=== PATIENT | male | born 1965 | race Caucasian/White ===

== ENCOUNTER 2016-04-29 15:56 | Inpatient (IN) | payer OTHER ==
[~2016-04-29] VITALS: Ht 152.4 cm; Wt 76.0 kg
[~2016-04-29 15:56] MED LIST: IBUP-232 PO
[2016-04-30] MEDS ORDERED: INSULIN HUMAN REGULAR 1,000 UNITS/10 ML VIAL SQ PRN (06:30)
[2016-04-30] MEDS ORDERED: METOPROLOL TARTRATE 25 MG TAB PO PRN (06:30)
[2016-04-30 07:07] VITALS: BP 123/72; PULSE 60; RESP 16; TEMP 97.6; O2SAT 99
[2016-04-30] MEDS ORDERED: GENTAMICIN SULFATE 80 MG/2 ML VIAL ONE (07:15)
[2016-04-30 07:24] LABS: AUTOMATED NEUTROPHIL # 1.9 TH/MM3 (1.8-7.7); BASOPHIL % 0.8 % (0.0-2.0); EOSINOPHIL # 0.1 TH/MM3 (0-0.4); EOSINOPHIL % 3.2 % (0.0-4.0); HEMATOCRIT 39.5 % (39.0-51.0); HEMO FLAGS DIFF FINAL; LYMPH % 31.3 % (9.0-44.0); LYMPHOCYTE # 1.1 TH/MM3 (1.0-4.8); MEAN CELL VOLUME 87.3 FL (80.0-100.0); MEAN CORPUSCULAR HEMOGLOBIN 29.8 PG (27.0-34.0); MEAN CORPUSCULAR HGB CONC 34.2 % (32.0-36.0); MONO % 9.8 % (0.0-8.0); NEUT % 54.9 % (16.0-70.0); PLATELET COUNT 160 TH/MM3 (150-450); RED BLOOD COUNT 4.52 MIL/MM3 (4.50-5.90); RED CELL DISTRIBUTION WIDTH 14.5 % (11.6-17.2); WHITE BLOOD COUNT 3.4 TH/MM3 (4.0-11.0)
[2016-04-30] MEDS ORDERED: VANCOMYCIN 1000 MG/NS 250 ML (for <70 kg) IV SCH ×2 (07:30)
[2016-04-30] MEDS ORDERED: ceFAZolin 2 GM PREMIX 50 ML IV SCH (07:30)
[2016-04-30] MEDS ORDERED: HYDROmorphone HCL PF 2 MG/ML VIAL ONE (07:42)
[2016-04-30] MEDS ORDERED: SUGAMMADEX SODIUM 200 MG/2 ML VIAL IV PUSH ONE ×2 (07:42)
[2016-04-30] MEDS ORDERED: DEXAMETHASONE SOD PHOS 4 MG/ML VIAL ONE (07:44)
[2016-04-30] MEDS ORDERED: FAMOTIDINE 20 MG/2 ML VIAL ONE (07:44)
[2016-04-30] MEDS ORDERED: MIDAZOLAM HCL 2 MG/2 ML VIAL ONE (07:44)
[2016-04-30] MEDS ORDERED: BUPIVACAINE/EPINEPHRINE 0.25% PF 30 ML VIAL ONE (07:45)
[2016-04-30] MEDS ORDERED: SODIUM CHLORID 0.9% 500 ML IV SCH (08:30)
[2016-04-30] MEDS ORDERED: LACTATED RINGER'S 1000 ML IV SCH (08:30)
[2016-04-30] MEDS ORDERED: NALOXONE HCL 0.4 MG/ML AMP IV PRN (10:15)
[2016-04-30] MEDS ORDERED: MORPHINE SULFATE 4 MG/ML INJ IV PUSH PRN (10:15)
[2016-04-30] MEDS ORDERED: diphenhydrAMINE HCL 25 MG CAP PO PRN (10:15)
[2016-04-30] MEDS ORDERED: SODIUM CHLORIDE 0.9% FLUSH 5 ML FLUSH IVF PRN (10:15)
[2016-04-30] MEDS ORDERED: ONDANSETRON HCL 4 MG/2 ML VIAL IVP PRN (10:15)
[2016-04-30] MEDS ORDERED: ACETAMINOPHEN/HYDROcodone 325 MG/10 MG TAB PO PRN (10:15)
--- NOTE | 2016-04-30 10:24 | PD.OP ---
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 My P.A. presence was necessary throughout this case for the manipulation and positioning of the surgical extremity. My P.A. was assisting me throughout the duration of this procedure. The skill set of a physician life enrichment assistant was medically necessary to complete this procedure. During the surgical case the senior manufacturing technician was working at the back table and the physician life enrichment assistant was directly assisting me. Operation and Findings: PLAN OF ACTIVITY Strict non-weightbearing. DETAILS OF PROCEDURE This patient is well-known to me from previous treatment of right distal tibia and fibula fractures. The patient subsequently presented to the office with failure hardware and nonunion. Informed consent was obtained. The operative site was marked. Patient was brought to the OR, placed on the OR table, and given IV sedation and GETA. The operative leg was prepped with alcohol, followed by Hibiclens and draped in the usual sterile fashion. Time-out procedure was performed. Antibiotics were held until after cultures were obtained. The procedure began with attention turned towards the fibula. A 8-inch incision was made over the distal tibia. The subcutaneous tissue was dissected with Bovie. The hardware was now visualized. At this point attention was turned to hardware removal. The plate had broken. The intact screws were now loosened with a screwdriver and then removed with a drill. The plate was now removed. Next attention was turned to the distal tibia using the same anterolateral incision. Subcutaneous tissue was dissected with Bovie and our attention was now turned towards hardware removal. The screws were now loosened using a screwdriver. The screws were now removed using a drill. The plate was also removed. Attention was turned to the open treatment of the distal tibia nonunion. A TPS bur was used to debride the nonunion. Curettes and rongeurs were used to debride fibrous tissue. All fibrous tissue was removed. Cortical bone was debrided back to healthy bleeding bone. There was a large defect in the metaphyseal region. At this point, attention was turned towards the distal fibula. The distal fibula was also debrided of fibrous tissue. There was a large amount fibrous tissue present. TPS bur and rongeurs were used to debride bone back to healthy bleeding bone. The wounds were now thoroughly irrigated. Next, attention was turned to iliac crest bone grafting. A 3-inch incision was made over the iliac crest. The subcutaneous tissue was dissected with Bovie. The fascia was elevated sharply. The soft tissue was protected. An osteotome was used to create a window in the cortex. Curettes were used to obtain cancellous bone graft from the iliac crest. 3 cc of bone marrow aspirate was also obtained to mixed with a medium stem cell graft. Attention was turned the distal fibula. A fibula plate was selected. The plate was provisionally held to bone with K-wires. A 3.5 LCP plate was utilized. The fractures were held in a reduced position. Ultimately 3.5 cortical screws were placed on each side of the fracture. Compression was applied across the fracture site. Multiple screws were placed in each side of fracture. Fluoroscopy confirmed appropriate fracture alignment with appropriate plate placement. At this point, attention was turned to open reduction, internal fixation of the tibial nonunion. The tibia was distracted open. A Synthes distal tibial plate was selected. The plate was placed along the anterior lateral aspect of the tibia. The plate was provisionally held to bone with K-wires. 3.5 cortical screws were used to compress plate to bone. Fluoroscopy confirmed appropriate plate placement. Multiple 2.7 locking screws were placed distally. Multiple 3.5 cortical screws were placed in the tibia shaft. All screws were predrilled and measured for appropriate length. Next, attention was turned to stem cell grafting. The remainder of the cancellous bone graft from the iliac crest was mixed with a medium stem cell graft. This was also mixed with bone marrow aspirate from the pelvis. Once this was ready, the remainder of the defects along the tibia and fibula were filled with bone graft. The tourniquet was released. Hemostasis was confirmed. At this point incisions were closed. The pelvic incision was closed with #1 Vicryl, 3-0 Vicryl and petros. The ankle incisions were closed with 3-0 Vicryl and 3-0 nylon. Sterile dressings were applied. The patient was placed into a well-molded, well-padded splint and she was transferred to Recovery in stable condition. Romel May MD Apr 30, 2016 10:24
[2016-04-30] MEDS ORDERED: MISCELLANEOUS NURSING INFORMATION XX PRN (11:00)
[2016-04-30] MEDS ORDERED: DO NOT ADM ANY ANTICOAGULANT DRUGS XX PRN (11:00)
[2016-04-30] MEDS ORDERED: Post-op Orders (for Pharmacy) MISC XX ONE (11:00)
[2016-04-30] MEDS: LACTATED RINGER'S 1000 ML INJ 1,000 ML IV SCH ×2 (11:30→21:00)
[2016-04-30] MEDS: MORPHINE SULFATE 30 MG/30 ML PCA IV SCH ×2 (11:49→23:12)
[2016-04-30] MEDS: ERGOCALCIFEROL (VIT D2) 50,000 UNIT CAP PO SCH (12:00)
--- NOTE | 2016-04-30 12:41 | RADRPT ---
EXAM DATE/TIME: 04/30/2016 09:54 [place] COMPARISON: ANKLE RIGHT LIMITED (AP&LAT), December 05, 2015, 11:06. INDICATIONS : ORIF right ankle hardware removal and revision. MEDICAL HISTORY : None. SURGICAL HISTORY : ORIF right ankle. ENCOUNTER: Subsequent ACUITY: 4 - 6 months PAIN SCORE: Non-responsive. LOCATION: Right ankle. FINDINGS: Extensive hardware is noted within the distal fibula and tibia status post revision. Hardware appears be in good position and the bones are adequately aligned. CONCLUSION: Distal fibular and tibial hardware appears to be in good position status post revision. Chente Spain MD on April 30, 2016 at 12:38 Board Certified Radiologist. This report was verified electronically.
[2016-04-30] MEDS: CALCIUM/VITAMIN D 250 MG/125 U TAB PO SCH ×2 (13:00→18:57)
[2016-04-30] MEDS ORDERED: LACTATED RINGER'S 1000 ML INJ 1,000 ML IV ONE (14:07)
[2016-04-30] MEDS ORDERED: KETOROLAC TROMETHAMINE 60 MG/2 ML (IM) VIAL IM ONE (14:07)
[2016-04-30] MEDS ORDERED: ONDANSETRON HCL 4 MG/2 ML VIAL IV PUSH ONE (14:07)
[2016-04-30] MEDS ORDERED: PROPOFOL 200 MG/20 ML AMP IV ONE (14:07)
[2016-04-30] MEDS ORDERED: ePHEDrine/NS 50 MG/5 ML SYR IV ONE (14:07)
[2016-04-30 16:22] VITALS: O2SAT 97
[2016-04-30 17:00] VITALS: BP 118/71; PULSE 58; RESP 16; TEMP 95.8; O2SAT 99
[2016-04-30] MEDS: VANCOMYCIN INJ 1,000 MG in SODIUM CHLOR 0.9% 250 ML INJ 250 ML IV SCH (18:56)
[2016-04-30 20:00] VITALS: BP 113/67; PULSE 54; RESP 16; TEMP 97.2; O2SAT 99
[2016-04-30] MEDS: SODIUM CHLORIDE 0.9% FLUSH 5 ML FLUSH IVF SCH (21:00)
[2016-04-30] MEDS: PCA - TOTAL MG MORPHINE DELIVERED PER SHIFT SCH (21:17)
[2016-04-30] MEDS: KETOROLAC TROMETHAMINE 30 MG/ML (IVP) VIAL IVP SCH (21:21)
[2016-04-30] MEDS: ceFAZolin 2 GM PREMIX 50 ML IV SCH (23:11)
[2016-05-01] VITALS (8 sets, daily range): BP systolic 101–124; BP diastolic 61–76; PULSE 56–69; RESP 16–18; TEMP 96.1–98.9; O2SAT 95–100
[2016-05-01 05:44] LABS: HEMATOCRIT 30.8 % (39.0-51.0); REVIEW FLAG FINAL
[2016-05-01] MEDS: PCA - TOTAL MG MORPHINE DELIVERED PER SHIFT SCH ×4 (05:54→23:55)
[2016-05-01] MEDS: LACTATED RINGER'S 1000 ML INJ 1,000 ML IV SCH ×2 (05:55→17:00)
[2016-05-01] MEDS ORDERED: HYDR-3366 PO (06:23)
[2016-05-01] MEDS ORDERED: XARE10TA PO (06:23)
[2016-05-01] MEDS: CHLORHEXIDINE GLUCONATE 4% SOLN 120 ML BTL TOP SCH ×2 (06:30→23:55)
--- NOTE | 2016-05-01 07:05 | PD.ORT.PN ---
Subjective Subjective Remarks Pain controlled. Mild drainage through splint Objective Vitals Vital Signs Date Time Temp Pulse Resp B/P Pulse Ox O2 Delivery O2 Flow Rate FiO2 05/01/16 05:54 28 05/01/16 00:00 97.1 56 16 101/61 96 04/30/16 23:12 20 04/30/16 21:17 18 04/30/16 20:00 97.2 54 16 113/67 99 04/30/16 17:00 95.8 58 16 118/71 99 04/30/16 16:22 97 21 04/30/16 12:30 98.0 62 17 129/79 97 Room Air 04/30/16 12:00 58 17 124/82 97 Room Air 04/30/16 11:49 15 04/30/16 11:45 78 17 132/87 97 Room Air 04/30/16 11:30 67 15 145/90 97 Room Air 04/30/16 11:15 73 15 153/87 97 Nasal Cannula 2 04/30/16 11:00 85 15 153/90 97 Nasal Cannula 4 04/30/16 10:47 97.8 99 14 150/51 100 Nasal Cannula 4 04/30/16 07:07 97.6 60 16 123/72 99 I/O 04/30/16 04/30/16 04/30/16 05/01/16 05/01/16 05/01/16 07:00 15:00 23:00 07:00 15:00 23:00 Intake Total 1340 ml 800 ml Output Total 700 ml 1000 ml Balance 640 ml -200 ml Intake Oral 240 ml 480 ml IV Total 100 ml 320 ml Other 1000 ml Output Urine Total 500 ml 1000 ml Estimated Blood Loss 200 ml # Bowel Movements 0 0 Result Diagram: 05/01/16 0455 Imaging Last 72 hours Impressions Ankle X-Ray 04/30/16 0000 Signed Impressions: Service Date/Time: April 09:54 - CONCLUSION: Distal fibular and tibial hardware appears to be in good position status post revision. Chente Spain MD Objective Remarks Right lower extremity: Splint intact with mild drainage. Intact sensation distally. Iliac crest bone graft site dressing reinforced mild drainage. Is able to move all toes. No pain with motion of hip or knee Assessment & Plan Assessment and Plan Revision right tibial pilon fracture with removal of hardware and iliac crest bone graft and open reduction internal fixation POD 1 Strict nonweightbearing right lower extremity Elevation Maintain splint may reinforce due to drainage Daily dressing changes right iliac crest bone graft site Case management for possible discharge planning- homeless [facility] MAXIMO SOTELO PA-C May 01, 2016 07:05
[2016-05-01] MEDS: CALCIUM/VITAMIN D 250 MG/125 U TAB PO SCH ×3 (07:48→16:28)
[2016-05-01] MEDS: CHOLECALCIFEROL (VIT D3) 1000 UNIT TAB PO SCH (07:48)
[2016-05-01] MEDS: ACETAMINOPHEN/HYDROcodone 325 MG/10 MG TAB PO PRN ×3 (07:49→16:36)
[2016-05-01] MEDS: VANCOMYCIN INJ 1,000 MG in SODIUM CHLOR 0.9% 250 ML INJ 250 ML IV SCH ×2 (07:50→21:57)
[2016-05-01] MEDS: ceFAZolin 2 GM PREMIX 50 ML IV SCH ×3 (07:51→23:54)
[2016-05-01] MEDS: KETOROLAC TROMETHAMINE 30 MG/ML (IVP) VIAL IVP SCH (11:39)
[2016-05-01] MEDS: ENOXAPARIN SODIUM 30 MG/0.3 ML SYRINGE SQ SCH (11:39)
[2016-05-01] MEDS: SODIUM CHLORIDE 0.9% FLUSH 5 ML FLUSH IVF SCH ×2 (16:28→21:57)
[2016-05-02] VITALS: BP 110/56; PULSE 74; RESP 16; TEMP 98.7; O2SAT 97
[2016-05-02 08:04] VITALS: BP 124/75; PULSE 67; RESP 16; TEMP 98.3; O2SAT 99
--- NOTE | 2016-05-02 08:57 | PD.ORT.PN ---
Subjective Post Op Day #: 2 Subjective Remarks pain tolerable Objective Vitals Vital Signs Date Time Temp Pulse Resp B/P Pulse Ox O2 Delivery O2 Flow Rate FiO2 05/02/16 08:04 98.3 67 16 124/75 99 05/02/16 00:00 98.7 74 16 110/56 97 05/01/16 20:00 98.4 68 16 117/71 97 05/01/16 18:46 Room Air 05/01/16 18:23 98 21 05/01/16 16:06 97.7 69 18 121/70 98 05/01/16 12:20 95 21 05/01/16 12:06 97.1 66 18 124/76 99 I/O 05/01/16 05/01/16 05/01/16 05/02/16 05/02/16 05/02/16 07:00 15:00 23:00 07:00 15:00 23:00 Intake Total 480 ml 1080 ml 480 ml 480 ml Output Total 400 ml Balance 80 ml 1080 ml 480 ml 480 ml Intake Oral 240 ml 1080 ml 480 ml 480 ml IV Total 240 ml Output Urine Total 400 ml # Voids 4 2 2 # Bowel Movements 0 0 0 Result Diagram: 05/01/16 0455 Imaging Last 72 hours Impressions Ankle X-Ray 04/30/16 0000 Signed Impressions: Service Date/Time: April 09:54 - CONCLUSION: Distal fibular and tibial hardware appears to be in good position status post revision. Chente Spain MD Objective Remarks Right lower extremity: Splint intact with mild drainage. Intact sensation distally. Iliac crest bone graft site dressing c/d/i. Is able to move all toes. No pain with motion of hip or knee Assessment & Plan Ortho Post Op Day #: 2 Problem List: Assessment and Plan Revision right tibial pilon fracture with removal of hardware and iliac crest bone graft and open reduction internal fixation POD 2 Strict nonweightbearing right lower extremity Elevation Maintain splint may reinforce due to drainage Daily dressing changes right iliac crest bone graft site Case management for possible discharge planning- homeless МаринаEverton Sanchez May 02, 2016 08:57
[2016-05-02] MEDS: ceFAZolin 2 GM PREMIX 50 ML IV SCH (09:52)
[2016-05-02] MEDS: CHOLECALCIFEROL (VIT D3) 1000 UNIT TAB PO SCH (09:52)
[2016-05-02] MEDS: CALCIUM/VITAMIN D 250 MG/125 U TAB PO SCH ×2 (09:52→17:13)
[2016-05-02] MEDS: ENOXAPARIN SODIUM 30 MG/0.3 ML SYRINGE SQ SCH (09:53)
[2016-05-02] MEDS: VANCOMYCIN INJ 1,000 MG in SODIUM CHLOR 0.9% 250 ML INJ 250 ML IV SCH (09:53)
[2016-05-02] MEDS: SODIUM CHLORIDE 0.9% FLUSH 5 ML FLUSH IVF SCH ×2 (09:53→20:46)
[2016-05-02] MEDS: ACETAMINOPHEN/HYDROcodone 325 MG/10 MG TAB PO PRN ×2 (09:55→17:14)
[2016-05-02] MEDS ORDERED: MISCELLANEOUS PHARMACY INFORMATION XX ONE (11:00)
[2016-05-02 12:06] VITALS: BP 121/69; PULSE 77; RESP 16; TEMP 97.4; O2SAT 98
[2016-05-02] MEDS: PCA - TOTAL MG MORPHINE DELIVERED PER SHIFT SCH (14:00)
[2016-05-02 16:10] VITALS: BP 131/68; PULSE 60; RESP 18; TEMP 98.4; O2SAT 98
[2016-05-02 20:00] VITALS: BP 121/73; PULSE 74; RESP 18; TEMP 98.2; O2SAT 98
[2016-05-02] MEDS: LACTATED RINGER'S 1000 ML INJ 1,000 ML IV SCH (20:43)
[2016-05-03] VITALS: BP 128/73; PULSE 89; RESP 18; TEMP 97.2; O2SAT 97
[2016-05-03] MEDS: ACETAMINOPHEN/HYDROcodone 325 MG/10 MG TAB PO PRN ×3 (01:03→17:53)
[2016-05-03 08:55] VITALS: BP 130/80; PULSE 64; RESP 18; TEMP 96.6; O2SAT 99
[2016-05-03] MEDS: LACTATED RINGER'S 1000 ML INJ 1,000 ML IV SCH ×3 (09:00→19:57)
[2016-05-03] MEDS: CHOLECALCIFEROL (VIT D3) 1000 UNIT TAB PO SCH (09:00)
[2016-05-03] MEDS: CALCIUM/VITAMIN D 250 MG/125 U TAB PO SCH ×3 (09:00→17:52)
[2016-05-03] MEDS: ENOXAPARIN SODIUM 30 MG/0.3 ML SYRINGE SQ SCH (09:00)
[2016-05-03] MEDS: SODIUM CHLORIDE 0.9% FLUSH 5 ML FLUSH IVF SCH ×2 (09:02→20:22)
--- NOTE | 2016-05-03 11:54 | PD.ORT.PN ---
Subjective Post Op Day #: 3 Subjective Remarks pain tolerable Objective Vitals Vital Signs Date Time Temp Pulse Resp B/P Pulse Ox O2 Delivery O2 Flow Rate FiO2 05/03/16 08:55 Room Air 05/03/16 08:55 96.6 64 18 130/80 99 05/03/16 00:00 97.2 89 18 128/73 97 05/02/16 20:00 98.2 74 18 121/73 98 05/02/16 16:10 98.4 60 18 131/68 98 05/02/16 12:06 97.4 77 16 121/69 98 I/O 05/02/16 05/02/16 05/02/16 05/03/16 05/03/16 05/03/16 07:00 15:00 23:00 07:00 15:00 23:00 Intake Total 480 ml 1080 ml 480 ml 480 ml Output Total 350 ml 650 ml Balance 480 ml 1080 ml 130 ml -170 ml Intake Oral 480 ml 1080 ml 480 ml 480 ml Output Urine Total 350 ml 650 ml # Voids 2 6 1 # Bowel Movements 0 1 Result Diagram: 05/01/16 0455 Imaging Last 72 hours Impressions Ankle X-Ray 04/30/16 0000 Signed Impressions: Service Date/Time: April 09:54 - CONCLUSION: Distal fibular and tibial hardware appears to be in good position status post revision. Chente Spain MD Objective Remarks Right lower extremity: Splint intact with mild drainage. Intact sensation distally. Iliac crest bone graft site dressing c/d/i. Is able to move all toes. No pain with motion of hip or knee Assessment & Plan Ortho Post Op Day #: 3 Problem List: Assessment and Plan Revision right tibial pilon fracture with removal of hardware and iliac crest bone graft and open reduction internal fixation POD 2 Strict nonweightbearing right lower extremity Elevation Maintain splint may reinforce due to drainage Daily dressing changes right iliac crest bone graft site Case management for possible discharge planning - homeless МарианEverton Sanchez May 03, 2016 11:54
[2016-05-03 12:00] VITALS: BP 101/60; PULSE 69; RESP 18; TEMP 97.8; O2SAT 98
[2016-05-03 16:00] VITALS: BP 102/65; PULSE 67; RESP 18; TEMP 98.9; O2SAT 97
[2016-05-03 20:00] VITALS: BP 118/76; PULSE 83; RESP 17; TEMP 98; O2SAT 96
[2016-05-04] VITALS: BP 100/65; PULSE 67; RESP 16; TEMP 97; O2SAT 96
--- NOTE | 2016-05-04 07:04 | PD.ORT.PN ---
Subjective Subjective Remarks POD 4 s/p ORIF right distaly tibfib doign well. pain controlled. no complaints. awaiting case mgmt for placement Objective Vitals Vital Signs Date Time Temp Pulse Resp B/P Pulse Ox O2 Delivery O2 Flow Rate FiO2 05/04/16 00:00 97.0 67 16 100/65 96 05/03/16 20:00 98.0 83 17 118/76 96 05/03/16 16:00 98.9 67 18 102/65 97 05/03/16 12:00 97.8 69 18 101/60 98 05/03/16 08:55 Room Air 05/03/16 08:55 96.6 64 18 130/80 99 I/O 05/03/16 05/03/16 05/03/16 05/04/16 05/04/16 05/04/16 06:59 14:59 22:59 06:59 14:59 22:59 Intake Total 480 ml 1200 ml 480 ml Output Total 1000 ml Balance -520 ml 1200 ml 480 ml Intake Oral 480 ml 1200 ml 480 ml Output Urine Total 1000 ml # Voids 1 3 2 # Bowel Movements 1 1 1 Result Diagram: 05/01/16 0455 Imaging Last 72 hours Impressions Ankle X-Ray 04/30/16 0000 Signed Impressions: Service Date/Time: April 09:54 - CONCLUSION: Distal fibular and tibial hardware appears to be in good position status post revision. Chente Spain MD Objective Remarks Right lower extremity: Splint intact with mild drainage. Intact sensation distally. Iliac crest bone graft site dressing c/d/i. Is able to move all toes. No pain with motion of hip or knee Assessment & Plan Assessment and Plan 1) Revision right tibial pilon fracture with removal of hardware and iliac crest bone graft and open reduction internal fixation POD 4 Strict nonweightbearing right lower extremity Elevation Maintain splint may reinforce due to drainage Daily dressing changes right iliac crest bone graft site Case management for possible discharge planning - homeless Lovenox f/u wtjose j Harris or Robby in 2 weeks Jerry Saldana May 04, 2016 07:03
[2016-05-04 08:00] VITALS: BP 114/74; PULSE 74; RESP 16; TEMP 96.7; O2SAT 99
[2016-05-04] MEDS: CALCIUM/VITAMIN D 250 MG/125 U TAB PO SCH ×2 (08:07→19:55)
[2016-05-04] MEDS: CHOLECALCIFEROL (VIT D3) 1000 UNIT TAB PO SCH (08:07)
[2016-05-04] MEDS: ENOXAPARIN SODIUM 30 MG/0.3 ML SYRINGE SQ SCH (08:07)
[2016-05-04] MEDS: ACETAMINOPHEN/HYDROcodone 325 MG/10 MG TAB PO PRN ×2 (08:08→19:55)
[2016-05-04 12:00] VITALS: BP 110/83; PULSE 88; RESP 16; TEMP 97.2; O2SAT 96
[2016-05-04 16:00] VITALS: BP 112/75; PULSE 75; RESP 16; TEMP 98; O2SAT 98
[2016-05-04] MEDS: SODIUM CHLORIDE 0.9% FLUSH 5 ML FLUSH IVF SCH (19:55)
[2016-05-04] MEDS: LACTATED RINGER'S 1000 ML INJ 1,000 ML IV SCH (19:58)
[2016-05-04 20:00] VITALS: BP 120/86; PULSE 88; RESP 20; TEMP 97.1; O2SAT 96
[2016-05-05] VITALS: BP 98/56; PULSE 82; RESP 16; TEMP 98.5; O2SAT 98
[2016-05-05] MEDS: ACETAMINOPHEN/HYDROcodone 325 MG/10 MG TAB PO PRN ×2 (06:01→17:39)
--- NOTE | 2016-05-05 06:50 | PD.ORT.PN ---
Subjective Subjective Remarks Pain controlled. Mild drainage through splint Objective Vitals Vital Signs Date Time Temp Pulse Resp B/P Pulse Ox O2 Delivery O2 Flow Rate FiO2 05/05/16 04:00 Room Air 05/05/16 00:00 Room Air 05/05/16 00:00 98.5 82 16 98/56 98 05/04/16 20:00 Room Air 05/04/16 20:00 97.1 88 20 120/86 96 05/04/16 16:00 98.0 75 16 112/75 98 05/04/16 12:00 97.2 88 16 110/83 96 05/04/16 08:00 96.7 74 16 114/74 99 I/O 05/04/16 05/04/16 05/04/16 05/05/16 05/05/16 05/05/16 07:00 15:00 23:00 07:00 15:00 23:00 Intake Total 480 ml 1080 ml 240 ml Output Total 400 ml 300 ml Balance 80 ml 1080 ml -60 ml Intake Oral 480 ml 1080 ml 240 ml Output Urine Total 400 ml 300 ml # Voids 5 # Bowel Movements 1 0 0 Result Diagram: 05/01/16 0455 Imaging Last 72 hours Impressions Ankle X-Ray 04/30/16 0000 Signed Impressions: Service Date/Time: April 09:54 - CONCLUSION: Distal fibular and tibial hardware appears to be in good position status post revision. Chente Spain MD Objective Remarks Right lower extremity: Splint intact with mild drainage. Intact sensation distally. Iliac crest bone graft site dressing c/d/i. Is able to move all toes. No pain with motion of hip or knee Assessment & Plan Assessment and Plan 1) Revision right tibial pilon fracture with removal of hardware and iliac crest bone graft and open reduction internal fixation POD 5 Strict nonweightbearing right lower extremity Elevation Maintain splint may reinforce due to drainage Daily dressing changes right iliac crest bone graft site Seek consultation transfer service to [facility] due to homeless condition. Nonweightbearing 3 months Lovenox f/u wtjose j Harris or Robby in 2 weeks MAXIMO SOTELO PA-C May 05, 2016 06:50
[2016-05-05] MEDS: CALCIUM/VITAMIN D 250 MG/125 U TAB PO SCH ×3 (08:12→17:27)
[2016-05-05] MEDS: CHOLECALCIFEROL (VIT D3) 1000 UNIT TAB PO SCH (08:12)
[2016-05-05] MEDS: ENOXAPARIN SODIUM 30 MG/0.3 ML SYRINGE SQ SCH (08:12)
[2016-05-05 08:26] VITALS: BP 115/69; PULSE 73; RESP 18; TEMP 95.9; O2SAT 98
[2016-05-05] MEDS: SODIUM CHLORIDE 0.9% FLUSH 5 ML FLUSH IVF SCH ×2 (09:00→20:57)
[2016-05-05 10:40] VITALS: BP 98/65; PULSE 75; RESP 16; TEMP 96.1; O2SAT 98
[2016-05-05] MEDS: LACTATED RINGER'S 1000 ML INJ 1,000 ML IV SCH ×2 (11:00→20:57)
[2016-05-05 20:00] VITALS: BP 107/70; PULSE 69; RESP 20; TEMP 99.2; O2SAT 98
[2016-05-06] MEDS: LACTATED RINGER'S 1000 ML INJ 1,000 ML IV SCH (03:51)
[2016-05-06] MEDS: ACETAMINOPHEN/HYDROcodone 325 MG/10 MG TAB PO PRN (06:07)
[2016-05-06 08:00] VITALS: BP 105/71; PULSE 66; RESP 16; TEMP 97.2; O2SAT 97
[2016-05-06] MEDS ORDERED: ONDANSETRON ODT 4 MG TAB PO PRN (08:00)
[2016-05-06] MEDS: CHOLECALCIFEROL (VIT D3) 1000 UNIT TAB PO SCH (08:43)
[2016-05-06] MEDS: CALCIUM/VITAMIN D 250 MG/125 U TAB PO SCH ×3 (08:43→17:16)
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
[2016-05-06] MEDS: ENOXAPARIN SODIUM 30 MG/0.3 ML SYRINGE SQ SCH (12:13)
[2016-05-06] MEDS ORDERED: MAGNESIUM HYDROXIDE SUSP 30 ML CUP PO PRN (14:45)
[2016-05-06] MEDS: DOCUSATE SODIUM 50 MG/SENNA 8.6 MG TAB PO PRN (17:16)
[2016-05-06] MEDS: ACETAMINOPHEN/HYDROcodone 325 MG/5 MG TAB PO PRN (19:54)
[2016-05-06 20:00] VITALS: BP 107/67; PULSE 76; RESP 18; TEMP 98.9; O2SAT 99
[2016-05-07] MEDS: ACETAMINOPHEN/HYDROcodone 325 MG/5 MG TAB PO PRN ×2 (03:17→20:40)
[2016-05-07 08:00] VITALS: BP 126/80; PULSE 69; RESP 20; TEMP 97.9; O2SAT 100
--- NOTE | 2016-05-07 08:15 | HHI.PR ---
Subjective Remarks Patient seen and examined today. Patient denies any new complaints. No change in clinical status. Objective Vitals Vital Signs Date Time Temp Pulse Resp B/P Pulse Ox O2 Delivery O2 Flow Rate FiO2 05/06/16 20:00 98.9 76 18 107/67 99 I/O 05/06/16 05/06/16 05/06/16 05/07/16 05/07/16 05/07/16 07:00 15:00 23:00 07:00 15:00 23:00 Intake Total 360 ml 780 ml 420 ml 280 ml Output Total 500 ml Balance -140 ml 780 ml 420 ml 280 ml Intake Oral 360 ml 780 ml 420 ml 280 ml IV Total 0 ml 0 ml Output Urine Total 500 ml # Voids 2 3 2 2 # Bowel Movements 0 1 0 0 Objective Remarks GENERAL: Well-developed, well-nourished, in no acute distress. alert and orientated HEENT: Head is normocephalic without any lesions or masses noted. Facial features are symmetric. Eyes: Pupils equal round reactive to light. Extraocular muscles are intact. Conjunctivae were clear. NECK: Supple without any masses. Trachea midline no deviation. No JVD, CARDIAC: Regular rhythm, regular rate. S1/S2 are heard. No murmurs gallops or rubs. LUNGS: Clear to auscultation bilaterally. No wheeze, rhonchi or rales. No use of accessory muscles on inspiration or expiration. ABDOMEN: Soft, nontender. Nondistended. Bowel sounds heard in all 4 quadrants. No organomegaly or masses. Negative rebound, negative guarding EXTREMITIES: No edema,. No cyanosis or clubbing. Right lower extremity is in splint NEUROLOGY: Mood and affect appear appropriate. Cranial nerves II through XII grossly intact. Moving all extremities, speech is clear Urinary Catheter: No Vascular Central Line Catheter: No A/P Assessment and Plan Right distal tibia/fibula nonunion Status postsurgical intervention with removal of deep hardware, open reduction internal fixation right tibia nonunion, open reduction internal fixation of fibula nonunion, iliac crest bone grafting with stem cell graft Strict nonweightbearing right lower extremity, elevation, maintain splint Daily dressing changes right iliac crest bone graft site Orthopedic following for management and care Pain control [place] 5/325 one tablet every 6 hours as needed for pain 1-5 [place] 5/325 2 tablets every 6 hours as needed for pain 5-10 DVT prevention Subcutaneous Lovenox Discharge Planning Case management managing discharge planning 05/05/2016 CM received report from charge nurse that patient has been accepted to transfer down to [facility] (room 8501) and requesting transport be set up. CM set up [place] stretcher transport for 9:45am excelsior picker - RN notified and transport ticket at the frontend engineer. Patient is homeless and per MD, will not be cleared for discharge until incision is healed and/or he is weightbearing. CM will follow for MD orders. Rufino Campos May 07, 2016 08:15
[2016-05-07] MEDS: CALCIUM/VITAMIN D 250 MG/125 U TAB PO SCH ×3 (08:52→16:59)
[2016-05-07] MEDS: CHOLECALCIFEROL (VIT D3) 1000 UNIT TAB PO SCH (08:52)
[2016-05-07] MEDS: ENOXAPARIN SODIUM 30 MG/0.3 ML SYRINGE SQ SCH (10:53)
[2016-05-07] MEDS: ERGOCALCIFEROL (VIT D2) 50,000 UNIT CAP PO SCH (14:44)
[2016-05-07 20:00] VITALS: BP 130/83; PULSE 74; RESP 18; TEMP 97.6; O2SAT 99
[2016-05-07] MEDS: DOCUSATE SODIUM 50 MG/SENNA 8.6 MG TAB PO PRN (20:43)
--- NOTE | 2016-05-08 07:50 | HHI.PR ---
Subjective Remarks Patient seen and examined today. Patient denies any new complaints. No change in clinical status. Objective Vitals Vital Signs Date Time Temp Pulse Resp B/P Pulse Ox O2 Delivery O2 Flow Rate FiO2 05/07/16 20:00 97.6 74 18 130/83 99 05/07/16 08:00 97.9 69 20 126/80 100 I/O 05/07/16 05/07/16 05/07/16 05/08/16 05/08/16 05/08/16 07:00 15:00 23:00 07:00 15:00 23:00 Intake Total 280 ml 900 ml 740 ml 280 ml Balance 280 ml 900 ml 740 ml 280 ml Intake Oral 280 ml 900 ml 740 ml 280 ml IV Total 0 ml # Voids 2 4 3 3 # Bowel Movements 0 0 0 0 Objective Remarks GENERAL: Well-developed, well-nourished, in no acute distress. alert and orientated HEENT: Head is normocephalic without any lesions or masses noted. Facial features are symmetric. Eyes: Pupils equal round reactive to light. Extraocular muscles are intact. Conjunctivae were clear. NECK: Supple without any masses. Trachea midline no deviation. No JVD, CARDIAC: Regular rhythm, regular rate. S1/S2 are heard. No murmurs gallops or rubs. LUNGS: Clear to auscultation bilaterally. No wheeze, rhonchi or rales. No use of accessory muscles on inspiration or expiration. ABDOMEN: Soft, nontender. Nondistended. Bowel sounds heard in all 4 quadrants. No organomegaly or masses. Negative rebound, negative guarding EXTREMITIES: No edema,. No cyanosis or clubbing. Right lower extremity is in splint NEUROLOGY: Mood and affect appear appropriate. Cranial nerves II through XII grossly intact. Moving all extremities, speech is clear Urinary Catheter: No Vascular Central Line Catheter: No A/P Assessment and Plan Right distal tibia/fibula nonunion Status postsurgical intervention with removal of deep hardware, open reduction internal fixation right tibia nonunion, open reduction internal fixation of fibula nonunion, iliac crest bone grafting with stem cell graft Strict nonweightbearing right lower extremity, elevation, maintain splint Daily dressing changes right iliac crest bone graft site Orthopedic following for management and care Pain control [place] 5/325 one tablet every 6 hours as needed for pain 1-5 [place] 5/325 2 tablets every 6 hours as needed for pain 5-10 DVT prevention Subcutaneous Lovenox Discharge Planning Case management managing discharge planning 05/05/2016 CM received report from charge nurse that patient has been accepted to transfer down to [facility] (room 8501) and requesting transport be set up. CM set up [place] stretcher transport for 9:45am order picker/assembler - RN notified and transport ticket at the front elevator operator. Patient is homeless and per MD, will not be cleared for discharge until incision is healed and/or he is weightbearing. CM will follow for MD orders. Rufino Campos May 08, 2016 07:50
[2016-05-08] MEDS: CALCIUM/VITAMIN D 250 MG/125 U TAB PO SCH ×3 (08:30→17:23)
[2016-05-08] MEDS: CHOLECALCIFEROL (VIT D3) 1000 UNIT TAB PO SCH (08:30)
[2016-05-08 09:11] VITALS: BP 115/74; PULSE 61; RESP 20; TEMP 98.8; O2SAT 98
[2016-05-08] MEDS: ACETAMINOPHEN/HYDROcodone 325 MG/5 MG TAB PO PRN (09:27)
[2016-05-08] MEDS: ENOXAPARIN SODIUM 30 MG/0.3 ML SYRINGE SQ SCH (09:27)
[2016-05-08 20:00] VITALS: BP 126/81; PULSE 90; RESP 20; TEMP 98.4; O2SAT 99
[2016-05-09 08:00] VITALS: BP 120/77; PULSE 74; RESP 18; TEMP 97.6; O2SAT 99
--- NOTE | 2016-05-09 08:17 | HHI.PR ---
Subjective Remarks Patient seen and examined today. Patient denies any new complaints. No change in clinical status. Objective Vitals Vital Signs Date Time Temp Pulse Resp B/P Pulse Ox O2 Delivery O2 Flow Rate FiO2 05/08/16 20:00 98.4 90 20 126/81 99 05/08/16 10:27 18 05/08/16 09:11 98.8 61 20 115/74 98 I/O 05/08/16 05/08/16 05/08/16 05/09/16 05/09/16 05/09/16 07:00 15:00 23:00 07:00 15:00 23:00 Intake Total 280 ml 360 ml 240 ml Balance 280 ml 360 ml 240 ml Intake Oral 280 ml 360 ml 240 ml # Voids 3 2 2 2 # Bowel Movements 0 1 Objective Remarks GENERAL: Well-developed, well-nourished, in no acute distress. alert and orientated HEENT: Head is normocephalic without any lesions or masses noted. Facial features are symmetric. Eyes: Pupils equal round reactive to light. Extraocular muscles are intact. Conjunctivae were clear. NECK: Supple without any masses. Trachea midline no deviation. No JVD, CARDIAC: Regular rhythm, regular rate. S1/S2 are heard. No murmurs gallops or rubs. LUNGS: Clear to auscultation bilaterally. No wheeze, rhonchi or rales. No use of accessory muscles on inspiration or expiration. ABDOMEN: Soft, nontender. Nondistended. Bowel sounds heard in all 4 quadrants. No organomegaly or masses. Negative rebound, negative guarding EXTREMITIES: No edema,. No cyanosis or clubbing. Right lower extremity is in splint NEUROLOGY: Mood and affect appear appropriate. Cranial nerves II through XII grossly intact. Moving all extremities, speech is clear Urinary Catheter: No Vascular Central Line Catheter: No A/P Assessment and Plan Right distal tibia/fibula nonunion Status postsurgical intervention with removal of deep hardware, open reduction internal fixation right tibia nonunion, open reduction internal fixation of fibula nonunion, iliac crest bone grafting with stem cell graft Strict nonweightbearing right lower extremity, elevation, maintain splint Daily dressing changes right iliac crest bone graft site Orthopedic following for management and care Pain control [place] 5/325 one tablet every 6 hours as needed for pain 1-5 [place] 5/325 2 tablets every 6 hours as needed for pain 5-10 DVT prevention Subcutaneous Lovenox Discharge Planning Case management managing discharge planning 05/05/2016 CM received report from charge nurse that patient has been accepted to transfer down to [facility] (room 8501) and requesting transport be set up. CM set up [place] stretcher transport for 9:45am oyster picker - RN notified and transport ticket at the hotel front desk agent. Patient is homeless and per MD, will not be cleared for discharge until incision is healed and/or he is weightbearing. CM will follow for MD orders. Rufino Campos May 09, 2016 08:17
[2016-05-09] MEDS: CHOLECALCIFEROL (VIT D3) 1000 UNIT TAB PO SCH (08:26)
[2016-05-09] MEDS: CALCIUM/VITAMIN D 250 MG/125 U TAB PO SCH ×3 (08:26→17:39)
[2016-05-09] MEDS: ACETAMINOPHEN/HYDROcodone 325 MG/5 MG TAB PO PRN ×2 (08:27→17:44)
[2016-05-09] MEDS: ENOXAPARIN SODIUM 30 MG/0.3 ML SYRINGE SQ SCH (10:00)
[2016-05-09 21:38] VITALS: BP 111/76; PULSE 63; RESP 18; TEMP 97.8; O2SAT 99
[2016-05-10] MEDS: ACETAMINOPHEN/HYDROcodone 325 MG/5 MG TAB PO PRN ×2 (05:47→21:06)
[2016-05-10 08:00] VITALS: BP 118/77; PULSE 56; RESP 16; TEMP 96.4; O2SAT 99
[2016-05-10] MEDS: CHOLECALCIFEROL (VIT D3) 1000 UNIT TAB PO SCH (08:33)
[2016-05-10] MEDS: CALCIUM/VITAMIN D 250 MG/125 U TAB PO SCH ×3 (08:33→17:43)
--- NOTE | 2016-05-10 09:42 | HHI.PR ---
Subjective Remarks Patient's exam today. Patient denies any new complaints. No change in clinical status. Objective Vitals Vital Signs Date Time Temp Pulse Resp B/P Pulse Ox O2 Delivery O2 Flow Rate FiO2 05/10/16 08:00 96.4 56 16 118/77 99 05/09/16 21:38 97.8 63 18 111/76 99 05/09/16 21:15 20 I/O 05/09/16 05/09/16 05/09/16 05/10/16 05/10/16 05/10/16 07:00 15:00 23:00 07:00 15:00 23:00 Intake Total 240 ml 620 ml 240 ml Balance 240 ml 620 ml 240 ml Intake Oral 240 ml 620 ml 240 ml # Voids 2 1 1 # Bowel Movements 0 Objective Remarks GENERAL: Well-developed, well-nourished, in no acute distress. alert and orientated HEENT: Head is normocephalic without any lesions or masses noted. Facial features are symmetric. Eyes: Pupils equal round reactive to light. Extraocular muscles are intact. Conjunctivae were clear. NECK: Supple without any masses. Trachea midline no deviation. No JVD, CARDIAC: Regular rhythm, regular rate. S1/S2 are heard. No murmurs gallops or rubs. LUNGS: Clear to auscultation bilaterally. No wheeze, rhonchi or rales. No use of accessory muscles on inspiration or expiration. ABDOMEN: Soft, nontender. Nondistended. Bowel sounds heard in all 4 quadrants. No organomegaly or masses. Negative rebound, negative guarding EXTREMITIES: No edema,. No cyanosis or clubbing. Right lower extremity is in splint NEUROLOGY: Mood and affect appear appropriate. Cranial nerves II through XII grossly intact. Moving all extremities, speech is clear Urinary Catheter: No Vascular Central Line Catheter: No A/P Assessment and Plan Right distal tibia/fibula nonunion Status postsurgical intervention with removal of deep hardware, open reduction internal fixation right tibia nonunion, open reduction internal fixation of fibula nonunion, iliac crest bone grafting with stem cell graft Strict nonweightbearing right lower extremity, elevation, maintain splint Daily dressing changes right iliac crest bone graft site Orthopedic following for management and care Pain control [place] 5/325 one tablet every 6 hours as needed for pain 1-5 [place] 5/325 2 tablets every 6 hours as needed for pain 5-10 DVT prevention Subcutaneous Lovenox Discharge Planning Case management managing discharge planning 05/05/2016 CM received report from charge nurse that patient has been accepted to transfer down to [facility] (room 8501) and requesting transport be set up. CM set up [place] stretcher transport for 9:45am [employer]et [employer] - RN notified and transport ticket at the senior front end engineer. Patient is homeless and per MD, will not be cleared for discharge until incision is healed and/or he is weightbearing. CM will follow for MD orders. Rufino Campos May 10, 2016 09:42
[2016-05-10] MEDS: ENOXAPARIN SODIUM 30 MG/0.3 ML SYRINGE SQ SCH (10:55)
[2016-05-10 21:01] VITALS: BP 115/76; PULSE 86; RESP 16; TEMP 97.4; O2SAT 99
[2016-05-10] MEDS: TEMAZEPAM 15 MG CAP PO PRN (21:08)
[2016-05-11 08:00] VITALS: BP 129/84; PULSE 80; RESP 18; TEMP 98.5; O2SAT 100
[2016-05-11] MEDS: CHOLECALCIFEROL (VIT D3) 1000 UNIT TAB PO SCH (08:40)
[2016-05-11] MEDS: CALCIUM/VITAMIN D 250 MG/125 U TAB PO SCH ×3 (08:40→17:00)
[2016-05-11] MEDS: ACETAMINOPHEN/HYDROcodone 325 MG/5 MG TAB PO PRN ×3 (08:41→23:18)
[2016-05-11] MEDS: ENOXAPARIN SODIUM 30 MG/0.3 ML SYRINGE SQ SCH (08:41)
--- NOTE | 2016-05-11 09:37 | HHI.PR ---
Subjective Remarks Patient seen and examined today. Patient denies any new complaints. No change in clinical status. Objective Vitals Vital Signs Date Time Temp Pulse Resp B/P Pulse Ox O2 Delivery O2 Flow Rate FiO2 05/11/16 08:00 98.5 80 18 129/84 100 05/10/16 21:01 97.4 86 16 115/76 99 I/O 05/10/16 05/10/16 05/10/16 05/11/16 05/11/16 05/11/16 07:00 15:00 23:00 07:00 15:00 23:00 Intake Total 240 ml 480 ml Balance 240 ml 480 ml Intake Oral 240 ml 480 ml # Voids 1 2 2 3 # Bowel Movements 0 Objective Remarks GENERAL: Well-developed, well-nourished, in no acute distress. alert and orientated HEENT: Head is normocephalic without any lesions or masses noted. Facial features are symmetric. Eyes: Pupils equal round reactive to light. Extraocular muscles are intact. Conjunctivae were clear. NECK: Supple without any masses. Trachea midline no deviation. No JVD, CARDIAC: Regular rhythm, regular rate. S1/S2 are heard. No murmurs gallops or rubs. LUNGS: Clear to auscultation bilaterally. No wheeze, rhonchi or rales. No use of accessory muscles on inspiration or expiration. ABDOMEN: Soft, nontender. Nondistended. Bowel sounds heard in all 4 quadrants. No organomegaly or masses. Negative rebound, negative guarding EXTREMITIES: No edema,. No cyanosis or clubbing. Right lower extremity is in splint NEUROLOGY: Mood and affect appear appropriate. Cranial nerves II through XII grossly intact. Moving all extremities, speech is clear Urinary Catheter: No Vascular Central Line Catheter: No A/P Assessment and Plan Right distal tibia/fibula nonunion Status postsurgical intervention with removal of deep hardware, open reduction internal fixation right tibia nonunion, open reduction internal fixation of fibula nonunion, iliac crest bone grafting with stem cell graft Strict nonweightbearing right lower extremity, elevation, maintain splint Daily dressing changes right iliac crest bone graft site Orthopedic following for management and care Pain control [place] 5/325 one tablet every 6 hours as needed for pain 1-5 [place] 5/325 2 tablets every 6 hours as needed for pain 5-10 DVT prevention Subcutaneous Lovenox Discharge Planning Case management managing discharge planning 12/12/16 0916 PATIENT WITH NWB STATUS RLE FOR 3MONTHS. ABLE TO USE CRUTCHES. PATIENT HOMELESS AND CONCERN FOR NON CONPLIANCE IF D/C'D TO COMMUNITY/COALITION. WILL ADDRESS WITH ORTHO THE OK TO SUGGEST ALTERNATE PLACEMENT TO SECURE CONPLIANCE WITH NWB. WALLY BROOKE LPN/SHANIKA/CHARGE Rufino Campos May 11, 2016 09:37
[2016-05-11 20:00] VITALS: BP 118/85; PULSE 58; RESP 16; TEMP 96.6; O2SAT 99
[2016-05-11] MEDS: TEMAZEPAM 15 MG CAP PO PRN (23:17)
[2016-05-12] MEDS: ACETAMINOPHEN/HYDROcodone 325 MG/5 MG TAB PO PRN ×2 (06:34→21:22)
[2016-05-12 08:00] VITALS: BP 122/69; PULSE 73; RESP 18; TEMP 97.2; O2SAT 98
[2016-05-12] MEDS: CALCIUM/VITAMIN D 250 MG/125 U TAB PO SCH ×3 (08:16→17:18)
[2016-05-12] MEDS: CHOLECALCIFEROL (VIT D3) 1000 UNIT TAB PO SCH (08:16)
[2016-05-12] MEDS: ENOXAPARIN SODIUM 30 MG/0.3 ML SYRINGE SQ SCH (09:36)
--- NOTE | 2016-05-12 15:18 | HHI.PR ---
Subjective Remarks Follow-up status post ORIF right tibia and fibula nonunions along with iliac crest bone grafting. No acute complaints. Objective Vitals Vital Signs Date Time Temp Pulse Resp B/P Pulse Ox O2 Delivery O2 Flow Rate FiO2 05/12/16 08:00 97.2 73 18 122/69 98 05/11/16 20:00 96.6 58 16 118/85 99 I/O 05/11/16 05/11/16 05/11/16 05/12/16 05/12/16 05/12/16 06:59 14:59 22:59 06:59 14:59 22:59 Intake Total 690 ml 800 ml 200 ml 510 ml Balance 690 ml 800 ml 200 ml 510 ml Intake Oral 690 ml 800 ml 200 ml 510 ml # Voids 3 3 4 2 # Bowel Movements 1 Imaging Last Impressions Ankle X-Ray 04/30/16 0000 Signed Impressions: Service Date/Time: April 09:54 - CONCLUSION: Distal fibular and tibial hardware appears to be in good position status post revision. Chente Spain MD Objective Remarks GENERAL: Well-nourished, well-developed patient in no apparent distress. SKIN: Warm and dry. CARDIOVASCULAR: Regular rate and rhythm. RESPIRATORY: No accessory muscle use. Clear to auscultation. Breath sounds equal bilaterally. GASTROINTESTINAL: Abdomen soft, non-tender, nondistended. MUSCULOSKELETAL: Splint right lower extremity. Moves toes of right foot. Capillary refill normal in digits of right foot. Witnessed to be ambulating in [place] with crutches. NEUROLOGICAL: Awake and alert. Sensation to touch grossly intact over digits of right foot. Normal speech. PSYCHIATRIC: Appropriate mood and affect; insight and judgment normal. Procedures 04/30/16: Removal of deep hardware, open reduction internal fixation right tibia nonunion, open reduction internal fixation right fibula nonunion, iliac crest bone grafting with stem cell graft Urinary Catheter: No Vascular Central Line Catheter: No A/P Problem List: (1) Tibia/fibula fracture ICD Code: S82.209A Status: Acute Assessment and Plan Right distal tibia/fibula nonunion Status postsurgical intervention with removal of deep hardware, open reduction internal fixation right tibia nonunion, open reduction internal fixation of fibula nonunion, iliac crest bone grafting with stem cell graft Strict nonweightbearing right lower extremity, elevation, maintain splint Daily dressing changes right iliac crest bone graft site Orthopedic following for management and care Pain control [place] 5/325 one tablet every 6 hours as needed for pain 1-5 [place] 5/325 2 tablets every 6 hours as needed for pain 5-10 Constipation prophylaxis: Kylie-colace scheduled Milk of magnesia prn DVT prevention Subcutaneous Lovenox Problem Qualifiers (1) Tibia/fibula fracture: Kelli Barton May 12, 2016 15:18 Pedrito Limon DO May 13, 2016 01:44
[2016-05-12 20:00] VITALS: BP 134/86; PULSE 88; RESP 18; TEMP 96.5; O2SAT 97
[2016-05-12] MEDS: TEMAZEPAM 15 MG CAP PO PRN (21:21)
[2016-05-13 08:00] VITALS: BP 114/82; PULSE 84; RESP 16; TEMP 95.5; O2SAT 100
[2016-05-13] MEDS: CALCIUM/VITAMIN D 250 MG/125 U TAB PO SCH ×3 (08:44→17:02)
[2016-05-13] MEDS: CHOLECALCIFEROL (VIT D3) 1000 UNIT TAB PO SCH (08:44)
[2016-05-13] MEDS: ENOXAPARIN SODIUM 30 MG/0.3 ML SYRINGE SQ SCH (08:49)
--- NOTE | 2016-05-13 14:43 | HHI.PR ---
Subjective Remarks Follow-up status post ORIF right lower extremity. Patient states he hurts all over. Objective Vitals Vital Signs Date Time Temp Pulse Resp B/P Pulse Ox O2 Delivery O2 Flow Rate FiO2 05/13/16 08:00 95.5 84 16 114/82 100 05/12/16 20:00 96.5 88 18 134/86 97 I/O 05/12/16 05/12/16 05/12/16 05/13/16 05/13/16 05/13/16 07:00 15:00 23:00 07:00 15:00 23:00 Intake Total 200 ml 510 ml 650 ml 300 ml Balance 200 ml 510 ml 650 ml 300 ml Intake Oral 200 ml 510 ml 650 ml 300 ml # Voids 2 4 1 Imaging Last Impressions Ankle X-Ray 04/30/16 0000 Signed Impressions: Service Date/Time: April 09:54 - CONCLUSION: Distal fibular and tibial hardware appears to be in good position status post revision. Chente Spain MD Objective Remarks GENERAL: Well-nourished, well-developed patient in no apparent distress. SKIN: Warm and dry. CARDIOVASCULAR: Regular rhythm. RESPIRATORY: No accessory muscle use. Clear to auscultation. Breath sounds equal bilaterally. GASTROINTESTINAL: Abdomen soft, non-tender, nondistended. MUSCULOSKELETAL: Splint right lower extremity. Moves toes of right foot. Capillary refill normal in digits of right foot. NEUROLOGICAL: Awake and alert. Sensation to touch grossly intact over digits of right foot. Normal speech. PSYCHIATRIC: Appropriate mood and affect; insight and judgment normal. Procedures 04/30/16: Removal of deep hardware, open reduction internal fixation right tibia nonunion, open reduction internal fixation right fibula nonunion, iliac crest bone grafting with stem cell graft Urinary Catheter: No Vascular Central Line Catheter: No A/P Problem List: (1) Tibia/fibula fracture ICD Code: S82.209A Status: Acute Assessment and Plan Right distal tibia/fibula nonunion Status postsurgical intervention with removal of deep hardware, open reduction internal fixation right tibia nonunion, open reduction internal fixation of fibula nonunion, iliac crest bone grafting with stem cell graft Strict nonweightbearing right lower extremity for 3 months, elevation, maintain splint Daily dressing changes right iliac crest bone graft site Orthopedic following for management and care Pain control [place] 5/325 one tablet every 6 hours as needed for pain 1-5 [place] 5/325 2 tablets every 6 hours as needed for pain 5-10 Constipation prophylaxis: Kylie-colace scheduled Milk of magnesia prn DVT prevention Subcutaneous Lovenox Problem Qualifiers (1) Tibia/fibula fracture: Kelli Barton May 13, 2016 14:43 Pedrito Limon DO May 14, 2016 00:55
--- NOTE | 2016-05-13 17:16 | PD.ORT.PN ---
Subjective Subjective Remarks Pain controlled. Mild drainage through splint Objective Vitals Vital Signs Date Time Temp Pulse Resp B/P Pulse Ox O2 Delivery O2 Flow Rate FiO2 05/13/16 08:00 95.5 84 16 114/82 100 05/12/16 20:00 96.5 88 18 134/86 97 I/O 05/12/16 05/12/16 05/12/16 05/13/16 05/13/16 05/13/16 07:00 15:00 23:00 07:00 15:00 23:00 Intake Total 200 ml 510 ml 650 ml 300 ml Balance 200 ml 510 ml 650 ml 300 ml Intake Oral 200 ml 510 ml 650 ml 300 ml # Voids 2 4 1 Imaging Last 72 hours Impressions Ankle X-Ray 04/30/16 0000 Signed Impressions: Service Date/Time: April 09:54 - CONCLUSION: Distal fibular and tibial hardware appears to be in good position status post revision. Chente Spain MD Objective Remarks Right lower extremity: Splint intact with mild drainage. Intact sensation distally. Iliac crest bone graft site dressing c/d/i. Is able to move all toes. No pain with motion of hip or knee Assessment & Plan Assessment and Plan 1) Revision right tibial pilon fracture with removal of hardware and iliac crest bone graft and open reduction internal fixation 04/30/16 Strict nonweightbearing right lower extremity Elevation Maintain splint may reinforce due to drainage - [employer] to re-splint with Harris splint tomorrow on 05/14/2016 Daily dressing changes right iliac crest bone graft site Nonweightbearing 3 months Lovenox We will see the week between [facility] and [facility] MAXIMO SOTELO PA-C May 13, 2016 17:16
[2016-05-13 20:00] VITALS: BP 112/82; PULSE 81; RESP 18; TEMP 97.1; O2SAT 98
[2016-05-13] MEDS: ACETAMINOPHEN/HYDROcodone 325 MG/5 MG TAB PO PRN (20:06)
[2016-05-13] MEDS: DOCUSATE SODIUM 50 MG/SENNA 8.6 MG TAB PO PRN (20:06)
[2016-05-14] MEDS: ACETAMINOPHEN/HYDROcodone 325 MG/5 MG TAB PO PRN ×3 (05:46→22:23)
[2016-05-14 08:00] VITALS: BP 115/71; PULSE 66; RESP 16; TEMP 98.2; O2SAT 98
[2016-05-14] MEDS: DOCUSATE SODIUM 50 MG/SENNA 8.6 MG TAB PO PRN ×2 (08:47→22:22)
[2016-05-14] MEDS: ENOXAPARIN SODIUM 30 MG/0.3 ML SYRINGE SQ SCH (08:47)
[2016-05-14] MEDS: CHOLECALCIFEROL (VIT D3) 1000 UNIT TAB PO SCH (08:48)
[2016-05-14] MEDS: CALCIUM/VITAMIN D 250 MG/125 U TAB PO SCH ×3 (08:48→18:22)
--- NOTE | 2016-05-14 10:55 | HHI.PR ---
Subjective Remarks Follow-up status post ORIF right lower extremity. No acute complaints. Patient states he had a bowel movement this morning. Objective Vitals Vital Signs Date Time Temp Pulse Resp B/P Pulse Ox O2 Delivery O2 Flow Rate FiO2 05/14/16 08:00 98.2 66 16 115/71 98 05/13/16 20:00 97.1 81 18 112/82 98 I/O 05/13/16 05/13/16 05/13/16 05/14/16 05/14/16 05/14/16 06:59 14:59 22:59 06:59 14:59 22:59 Intake Total 300 ml 480 ml Balance 300 ml 480 ml Intake Oral 300 ml 480 ml # Voids 1 2 1 # Bowel Movements 1 Objective Remarks GENERAL: Well-nourished, well-developed patient in no apparent distress. SKIN: Warm and dry. CARDIOVASCULAR: Regular rhythm. RESPIRATORY: No accessory muscle use. Clear to auscultation. Breath sounds equal bilaterally. GASTROINTESTINAL: Abdomen soft, non-tender, nondistended. MUSCULOSKELETAL: Splint right lower extremity. Moves toes of right foot. Capillary refill normal in digits of right foot. NEUROLOGICAL: Awake and alert. Sensation to touch grossly intact over digits of right foot. Normal speech. PSYCHIATRIC: Appropriate mood and affect; insight and judgment normal. Procedures 04/30/16: Removal of deep hardware, open reduction internal fixation right tibia nonunion, open reduction internal fixation right fibula nonunion, iliac crest bone grafting with stem cell graft Urinary Catheter: No Vascular Central Line Catheter: No A/P Problem List: (1) Tibia/fibula fracture ICD Code: S82.209A Status: Acute Assessment and Plan Right distal tibia/fibula nonunion Status postsurgical intervention with removal of deep hardware, open reduction internal fixation right tibia nonunion, open reduction internal fixation of fibula nonunion, iliac crest bone grafting with stem cell graft Strict nonweightbearing right lower extremity for 3 months, elevation, maintain splint. [employer] to re-splint with Harris splint today. Daily dressing changes right iliac crest bone graft site Orthopedic following for management and care will see next between and '. Pain control [place] 5/325 one tablet every 6 hours as needed for pain 1-5 [place] 5/325 2 tablets every 6 hours as needed for pain 5-10 Constipation prophylaxis: Kylie-colace scheduled Milk of magnesia prn DVT prevention Subcutaneous Lovenox Discharge Planning Patient homeless, improving with crutches. Concern for compliance if discharged. Will need clearance from orthopedics. Problem Qualifiers (1) Tibia/fibula fracture: Kelli Barton May 14, 2016 10:54 am Pedrito Limon DO May 14, 2016 6:41 pm
[2016-05-14] MEDS: ERGOCALCIFEROL (VIT D2) 50,000 UNIT CAP PO SCH (11:54)
[2016-05-14 20:00] VITALS: BP 124/81; PULSE 64; RESP 20; TEMP 97.7; O2SAT 98
[2016-05-15 08:00] VITALS: BP 118/84; PULSE 64; RESP 18; TEMP 96.9; O2SAT 99
[2016-05-15] MEDS: CHOLECALCIFEROL (VIT D3) 1000 UNIT TAB PO SCH (08:42)
[2016-05-15] MEDS: CALCIUM/VITAMIN D 250 MG/125 U TAB PO SCH ×3 (08:42→18:01)
[2016-05-15] MEDS: ENOXAPARIN SODIUM 30 MG/0.3 ML SYRINGE SQ SCH (09:51)
--- NOTE | 2016-05-15 10:03 | HHI.PR ---
Subjective Remarks No acute complaints. Patient denies any numbness or tingling to his right foot. Objective Vitals Vital Signs Date Time Temp Pulse Resp B/P Pulse Ox O2 Delivery O2 Flow Rate FiO2 05/15/16 08:00 96.9 64 18 118/84 99 05/14/16 20:00 97.7 64 20 124/81 98 05/14/16 19:30 18 I/O 05/14/16 05/14/16 05/14/16 05/15/16 05/15/16 05/15/16 07:00 15:00 23:00 07:00 15:00 23:00 Intake Total 360 ml 240 ml Balance 360 ml 240 ml Intake Oral 360 ml 240 ml # Voids 2 1 1 # Bowel Movements 1 0 Objective Remarks GENERAL: Well-nourished, well-developed patient in no apparent distress. SKIN: Warm and dry. CARDIOVASCULAR: Regular rhythm. RESPIRATORY: No accessory muscle use. Clear to auscultation. Breath sounds equal bilaterally. GASTROINTESTINAL: Abdomen soft, non-tender, nondistended. MUSCULOSKELETAL: Splint right lower extremity. Moves toes of right foot. Capillary refill normal in digits of right foot. NEUROLOGICAL: Awake and alert. Sensation to touch grossly intact over digits of right foot. Normal speech. PSYCHIATRIC: Appropriate mood and affect; insight and judgment normal. Procedures 04/30/16: Removal of deep hardware, open reduction internal fixation right tibia nonunion, open reduction internal fixation right fibula nonunion, iliac crest bone grafting with stem cell graft Urinary Catheter: No Vascular Central Line Catheter: No A/P Problem List: (1) Tibia/fibula fracture ICD Code: S82.209A Status: Acute Assessment and Plan Right distal tibia/fibula nonunion Status postsurgical intervention with removal of deep hardware, open reduction internal fixation right tibia nonunion, open reduction internal fixation of fibula nonunion, iliac crest bone grafting with stem cell graft Strict nonweightbearing right lower extremity for 3 months, elevation, maintain splint. [employer] re-splinted RLE on 05/14. Daily dressing changes right iliac crest bone graft site Orthopedic following for management and care; will see next between and '. Pain control [place] 5/325 one tablet every 6 hours as needed for pain 1-5 [place] 10/325 one tablet every 6 hours as needed for pain 6-10 Constipation prophylaxis: Kylie-colace scheduled Milk of magnesia prn DVT prevention Subcutaneous Lovenox Discharge Planning Patient homeless, improving with crutches. Concern for compliance if discharged. Will need clearance from orthopedics. Problem Qualifiers (1) Tibia/fibula fracture: Kelli Barton May 15, 2016 10:03
[2016-05-15 20:00] VITALS: BP 129/82; PULSE 73; RESP 20; TEMP 97.9; O2SAT 98
[2016-05-15] MEDS: ACETAMINOPHEN/HYDROcodone 325 MG/10 MG TAB PO PRN (21:07)
[2016-05-16 08:00] VITALS: BP 110/75; PULSE 84; RESP 20; TEMP 97.7; O2SAT 98
[2016-05-16] MEDS: CALCIUM/VITAMIN D 250 MG/125 U TAB PO SCH ×3 (08:29→16:47)
[2016-05-16] MEDS: ACETAMINOPHEN/HYDROcodone 325 MG/10 MG TAB PO PRN ×2 (08:29→16:46)
[2016-05-16] MEDS: CHOLECALCIFEROL (VIT D3) 1000 UNIT TAB PO SCH (08:29)
[2016-05-16] MEDS: ENOXAPARIN SODIUM 30 MG/0.3 ML SYRINGE SQ SCH (08:30)
--- NOTE | 2016-05-16 09:50 | HHI.PR ---
Subjective Remarks Follow-up status post ORIF right lower extremity. Patient states he hurts all over. He states his arms are sore from the accident he had prior to this hospitalization. Objective Vitals Vital Signs Date Time Temp Pulse Resp B/P Pulse Ox O2 Delivery O2 Flow Rate FiO2 05/16/16 08:00 97.7 84 20 110/75 98 05/15/16 20:00 97.9 73 20 129/82 98 I/O 05/15/16 05/15/16 05/15/16 05/16/16 05/16/16 05/16/16 06:59 14:59 22:59 06:59 14:59 22:59 Intake Total 480 ml 720 ml 240 ml Balance 480 ml 720 ml 240 ml Intake Oral 480 ml 720 ml 240 ml # Voids 1 2 1 # Bowel Movements 0 Objective Remarks GENERAL: Well-nourished, well-developed patient in no apparent distress. SKIN: Warm and dry. CARDIOVASCULAR: Regular rhythm. RESPIRATORY: No accessory muscle use. Clear to auscultation. Breath sounds equal bilaterally. MUSCULOSKELETAL: Splint right lower extremity. Moves toes of right foot. Capillary refill normal in digits of right foot. NEUROLOGICAL: Awake and alert. Sensation to touch grossly intact over digits of right foot. Normal speech. PSYCHIATRIC: Appropriate mood and affect; insight and judgment normal. Procedures 04/30/16: Removal of deep hardware, open reduction internal fixation right tibia nonunion, open reduction internal fixation right fibula nonunion, iliac crest bone grafting with stem cell graft Urinary Catheter: No Vascular Central Line Catheter: No A/P Problem List: (1) Tibia/fibula fracture ICD Code: S82.209A Status: Acute Assessment and Plan Right distal tibia/fibula nonunion Status postsurgical intervention with removal of deep hardware, open reduction internal fixation right tibia nonunion, open reduction internal fixation of fibula nonunion, iliac crest bone grafting with stem cell graft Strict nonweightbearing right lower extremity for 3 months, elevation, maintain splint. [employer] re-splinted RLE on 05/14. Daily dressing changes right iliac crest bone graft site Orthopedic following for management and care; will see next between and '. Pain control: Need to wean pain medication every few days. Patient has not been using medication consistently every 6 hours. [place] 5/325 one tablet every 6 hours as needed for pain 1-5 will be changed to every 8 hours. [place] 10/325 one tablet every 6 hours as needed for pain 6-10 will be changed to every 8 hours. Constipation prophylaxis: Kylie-colace scheduled Milk of magnesia prn DVT prevention Subcutaneous Lovenox Discharge Planning Patient homeless, improving with crutches. Concern for compliance if discharged. Will need clearance from orthopedics. Problem Qualifiers (1) Tibia/fibula fracture: Kelli Barton May 16, 2016 09:50
[2016-05-16] MEDS ORDERED: ACETAMINOPHEN/HYDROcodone 325 MG/5 MG TAB PO PRN (16:00)
[2016-05-16 20:00] VITALS: BP 115/76; PULSE 73; RESP 16; TEMP 97.8; O2SAT 97
[2016-05-17 08:00] VITALS: BP 131/80; PULSE 65; RESP 16; TEMP 97.1; O2SAT 99
[2016-05-17] MEDS: CHOLECALCIFEROL (VIT D3) 1000 UNIT TAB PO SCH (08:44)
[2016-05-17] MEDS: CALCIUM/VITAMIN D 250 MG/125 U TAB PO SCH ×3 (08:44→17:06)
[2016-05-17] MEDS: ACETAMINOPHEN/HYDROcodone 325 MG/10 MG TAB PO PRN ×2 (08:45→17:06)
[2016-05-17] MEDS: ENOXAPARIN SODIUM 30 MG/0.3 ML SYRINGE SQ SCH (08:45)
--- NOTE | 2016-05-17 09:47 | HHI.PR ---
Subjective Remarks No acute complaints. No change in clinical status. Objective Vitals Vital Signs Date Time Temp Pulse Resp B/P Pulse Ox O2 Delivery O2 Flow Rate FiO2 05/17/16 08:00 97.1 65 16 131/80 99 05/16/16 20:00 97.8 73 16 115/76 97 I/O 05/16/16 05/16/16 05/16/16 05/17/16 05/17/16 05/17/16 06:59 14:59 22:59 06:59 14:59 22:59 Intake Total 240 ml 900 ml 680 ml Output Total 3 ml Balance 240 ml 897 ml 680 ml Intake Oral 240 ml 900 ml 680 ml Output Urine Total 3 ml # Voids 1 3 # Bowel Movements 0 1 0 Imaging Last Impressions Ankle X-Ray 04/30/16 0000 Signed Impressions: Service Date/Time: April 09:54 - CONCLUSION: Distal fibular and tibial hardware appears to be in good position status post revision. Chente Spain MD Objective Remarks GENERAL: Well-nourished, well-developed patient in no apparent distress. SKIN: Warm and dry. CARDIOVASCULAR: Regular rhythm. RESPIRATORY: No accessory muscle use. Clear to auscultation. Breath sounds equal bilaterally. MUSCULOSKELETAL: Splint right lower extremity. Moves toes of right foot. Capillary refill normal in digits of right foot. Ambulating with crutches. NEUROLOGICAL: Awake and alert. Sensation to touch grossly intact over digits of right foot. Normal speech. PSYCHIATRIC: Appropriate mood and affect; insight and judgment normal. Procedures 04/30/16: Removal of deep hardware, open reduction internal fixation right tibia nonunion, open reduction internal fixation right fibula nonunion, iliac crest bone grafting with stem cell graft Urinary Catheter: No Vascular Central Line Catheter: No A/P Problem List: (1) Tibia/fibula fracture ICD Code: S82.209A Status: Acute Assessment and Plan Right distal tibia/fibula nonunion Status postsurgical intervention with removal of deep hardware, open reduction internal fixation right tibia nonunion, open reduction internal fixation of fibula nonunion, iliac crest bone grafting with stem cell graft Strict nonweightbearing right lower extremity for 3 months, elevation, maintain splint. [employer] re-splinted RLE on 05/14. Daily dressing changes right iliac crest bone graft site Orthopedic following for management and care; will see next between [place] and . Pain control: Need to wean pain medication every few days. Medication last adjusted on 05/16. [place] 5/325 one tablet every 8 hours as needed for pain 1-5 [place] 10/325 one tablet every 8 hours as needed for pain 6-10 Constipation prophylaxis: Kylie-colace scheduled Milk of magnesia prn DVT prevention Subcutaneous Lovenox Discharge Planning Patient homeless, improving with crutches. Concern for compliance if discharged. Will need clearance from orthopedics. Problem Qualifiers (1) Tibia/fibula fracture: Kelli Barton May 17, 2016 09:47
[2016-05-17] MEDS: DOCUSATE SODIUM 50 MG/SENNA 8.6 MG TAB PO PRN (17:08)
[2016-05-17] MEDS: ALUMINUM/MAGNESIUM/SIMETH 30 ML CUP PO PRN (17:08)
[2016-05-17 20:00] VITALS: BP 113/75; PULSE 65; RESP 20; TEMP 98.6; O2SAT 98
[2016-05-18 08:00] VITALS: BP 126/80; PULSE 67; RESP 17; TEMP 97.1; O2SAT 100
[2016-05-18] MEDS: DOCUSATE SODIUM 50 MG/SENNA 8.6 MG TAB PO PRN (09:34)
[2016-05-18] MEDS: ENOXAPARIN SODIUM 30 MG/0.3 ML SYRINGE SQ SCH (09:34)
[2016-05-18] MEDS: CALCIUM/VITAMIN D 250 MG/125 U TAB PO SCH ×3 (09:34→18:14)
[2016-05-18] MEDS: CHOLECALCIFEROL (VIT D3) 1000 UNIT TAB PO SCH (09:34)
--- NOTE | 2016-05-18 10:54 | HHI.PR ---
Subjective Remarks S/p ORIF RLE. No acute complaints. No change in clinical status. Objective Vitals Vital Signs Date Time Temp Pulse Resp B/P Pulse Ox O2 Delivery O2 Flow Rate FiO2 05/18/16 08:00 97.1 67 17 126/80 100 05/17/16 20:00 98.6 65 20 113/75 98 I/O 05/17/16 05/17/16 05/17/16 05/18/16 05/18/16 05/18/16 07:00 15:00 23:00 07:00 15:00 23:00 Intake Total 870 ml Balance 870 ml Intake Oral 870 ml # Voids 2 # Bowel Movements 1 Objective Remarks GENERAL: Well-nourished, well-developed patient in no apparent distress. SKIN: Warm and dry. CARDIOVASCULAR: Regular rhythm. RESPIRATORY: No accessory muscle use. Clear to auscultation. Breath sounds equal bilaterally. MUSCULOSKELETAL: Splint right lower extremity. Moves toes of right foot. Capillary refill normal in digits of right foot. NEUROLOGICAL: Awake and alert. Sensation to touch grossly intact over digits of right foot. Normal speech. PSYCHIATRIC: Appropriate mood and affect; insight and judgment normal. Procedures 04/30/16: Removal of deep hardware, open reduction internal fixation right tibia nonunion, open reduction internal fixation right fibula nonunion, iliac crest bone grafting with stem cell graft Urinary Catheter: No Vascular Central Line Catheter: No A/P Problem List: (1) Tibia/fibula fracture ICD Code: S82.209A Status: Acute Assessment and Plan Right distal tibia/fibula nonunion Status postsurgical intervention with removal of deep hardware, open reduction internal fixation right tibia nonunion, open reduction internal fixation of fibula nonunion, iliac crest bone grafting with stem cell graft Strict nonweightbearing right lower extremity for 3 months, elevation, maintain splint. [employer] re-splinted RLE on 05/14. Daily dressing changes right iliac crest bone graft site Orthopedic following for management and care; will see next between and . Pain control: Need to wean pain medication every few days. Medication last adjusted on 05/16. Patient has not used any pain medication today. [employer] [place] 5/325 one tablet every 8 hours as needed for pain 1-5. Discontinue. [facility] [place] [facility] 10/325 one tablet every 8 hours as needed for pain 6-10. Discontinue. Will change to [facility] 7.5/325 one tablet every 12 hours prn pain 4-10. Constipation prophylaxis: Kylie-colace scheduled Milk of magnesia prn DVT prevention Subcutaneous Lovenox Discharge Planning Patient homeless, improving with crutches. Concern for compliance if discharged. Will need clearance from orthopedics. Problem Qualifiers (1) Tibia/fibula fracture: Kelli Barton May 18, 2016 10:54
[2016-05-18 20:00] VITALS: BP 118/76; PULSE 90; RESP 20; TEMP 98; O2SAT 98
[2016-05-19] MEDS: ACETAMINOPHEN/HYDROcodone 325 MG/7.5 MG TAB PO PRN ×2 (05:56→20:49)
[2016-05-19 08:00] VITALS: BP 125/82; PULSE 63; RESP 17; TEMP 96.3; O2SAT 99
[2016-05-19] MEDS: CHOLECALCIFEROL (VIT D3) 1000 UNIT TAB PO SCH (08:51)
[2016-05-19] MEDS: CALCIUM/VITAMIN D 250 MG/125 U TAB PO SCH ×3 (08:51→16:15)
[2016-05-19] MEDS: ENOXAPARIN SODIUM 30 MG/0.3 ML SYRINGE SQ SCH (08:51)
--- NOTE | 2016-05-19 10:42 | HHI.PR ---
Subjective Remarks Patient seen and examined today. Patient denies any new complaints. No change in clinical status. Objective Vitals Vital Signs Date Time Temp Pulse Resp B/P Pulse Ox O2 Delivery O2 Flow Rate FiO2 05/19/16 08:00 96.3 63 17 125/82 99 05/19/16 07:32 14 05/18/16 20:00 98.0 90 20 118/76 98 I/O 05/18/16 05/18/16 05/18/16 05/19/16 05/19/16 05/19/16 07:00 15:00 23:00 07:00 15:00 23:00 Intake Total 480 ml 240 ml 240 ml Balance 480 ml 240 ml 240 ml Intake Oral 480 ml 240 ml 240 ml # Voids 2 2 2 # Bowel Movements 0 0 0 Objective Remarks GENERAL: Well-developed, well-nourished, in no acute distress. alert and orientated HEENT: Head is normocephalic without any lesions or masses noted. Facial features are symmetric. Eyes: Pupils equal round reactive to light. Extraocular muscles are intact. Conjunctivae were clear. NECK: Supple without any masses. Trachea midline no deviation. No JVD, CARDIAC: Regular rhythm, regular rate. S1/S2 are heard. No murmurs gallops or rubs. LUNGS: Clear to auscultation bilaterally. No wheeze, rhonchi or rales. No use of accessory muscles on inspiration or expiration. ABDOMEN: Soft, nontender. Nondistended. Bowel sounds heard in all 4 quadrants. No organomegaly or masses. Negative rebound, negative guarding EXTREMITIES: No edema,. No cyanosis or clubbing. Right lower extremity is in splint NEUROLOGY: Mood and affect appear appropriate. Cranial nerves II through XII grossly intact. Moving all extremities, speech is clear Procedures 04/30/16: Removal of deep hardware, open reduction internal fixation right tibia nonunion, open reduction internal fixation right fibula nonunion, iliac crest bone grafting with stem cell graft Urinary Catheter: No Vascular Central Line Catheter: No A/P Assessment and Plan Right distal tibia/fibula nonunion Status postsurgical intervention with removal of deep hardware, open reduction internal fixation right tibia nonunion, open reduction internal fixation of fibula nonunion, iliac crest bone grafting with stem cell graft Strict nonweightbearing right lower extremity, elevation, maintain splint Daily dressing changes right iliac crest bone graft site Orthopedic following for management and care Pain control [place] 7.5/325 one tablet every 12 hours as needed for pain 4-10 DVT prevention Subcutaneous Lovenox Discharge Planning Case management managing discharge planning 05/16/16 PATIENT COMPLAINS TO PA THAT HE HURTS ALL OVER AND THAT HIS ARMS ARE SORE FROM THE ACCIDENT HE HAD. PATIENT HAS BEEN USING [facility] EVERY 6 HOURS AND MD CHANGING NOW TO EVERY 8 HOURS. PATIENT STILL STRICT NONWEIGHTBEARING RIGHT LOWER EXTREMITY FOR THREE MONTHS. ORTHOPEDIC FOLLOWING WILL SEE PATIENT NEXT TIME BETWEEN AND . PATIENT IS HOMELESS WITH [facility] WHICH EXPLAINS DIFFICULT SITUATION TO DISCHARGE PATIENT IN CONSIDERATION OF NONWEIGHTBEARING STATUS. Rufino Campos May 19, 2016 10:42
[2016-05-19 20:30] VITALS: BP 118/83; PULSE 68; RESP 20; TEMP 96.7; O2SAT 95
[2016-05-20 08:00] VITALS: BP 119/81; PULSE 76; RESP 18; TEMP 96.4; O2SAT 99
--- NOTE | 2016-05-20 08:46 | HHI.PR ---
Subjective Remarks Patient seen and examined today. Patient denies any new complaints. Nursing staff indicates patient still has petros in place from surgery Objective Vitals Vital Signs Date Time Temp Pulse Resp B/P Pulse Ox O2 Delivery O2 Flow Rate FiO2 05/20/16 08:00 96.4 76 18 119/81 99 05/19/16 21:49 16 05/19/16 20:30 96.7 68 20 118/83 95 I/O 05/19/16 05/19/16 05/19/16 05/20/16 05/20/16 05/20/16 07:00 15:00 23:00 07:00 15:00 23:00 Intake Total 240 ml 480 ml Balance 240 ml 480 ml Intake Oral 240 ml 480 ml # Voids 2 2 2 # Bowel Movements 0 0 Objective Remarks GENERAL: Well-developed, well-nourished, in no acute distress. alert and orientated HEENT: Head is normocephalic without any lesions or masses noted. Facial features are symmetric. Eyes: Pupils equal round reactive to light. Extraocular muscles are intact. Conjunctivae were clear. NECK: Supple without any masses. Trachea midline no deviation. No JVD, CARDIAC: Regular rhythm, regular rate. S1/S2 are heard. No murmurs gallops or rubs. LUNGS: Clear to auscultation bilaterally. No wheeze, rhonchi or rales. No use of accessory muscles on inspiration or expiration. ABDOMEN: Soft, nontender. Nondistended. Bowel sounds heard in all 4 quadrants. No organomegaly or masses. Negative rebound, negative guarding EXTREMITIES: No edema,. No cyanosis or clubbing. Right lower extremity is in splint NEUROLOGY: Mood and affect appear appropriate. Cranial nerves II through XII grossly intact. Moving all extremities, speech is clear Procedures 04/30/16: Removal of deep hardware, open reduction internal fixation right tibia nonunion, open reduction internal fixation right fibula nonunion, iliac crest bone grafting with stem cell graft Urinary Catheter: No Vascular Central Line Catheter: No A/P Assessment and Plan Right distal tibia/fibula nonunion Status postsurgical intervention with removal of deep hardware, open reduction internal fixation right tibia nonunion, open reduction internal fixation of fibula nonunion, iliac crest bone grafting with stem cell graft Strict nonweightbearing right lower extremity, elevation, maintain splint Daily dressing changes right iliac crest bone graft site Orthopedic following for management and care, discussed with orthopedist for staple removal Pain control [place] 7.5/325 one tablet every 12 hours as needed for pain 4-10 DVT prevention Subcutaneous Lovenox Discharge Planning Case management managing discharge planning 05/16/16 PATIENT COMPLAINS TO PA THAT HE HURTS ALL OVER AND THAT HIS ARMS ARE SORE FROM THE ACCIDENT HE HAD. PATIENT HAS BEEN USING [facility] EVERY 6 HOURS AND MD CHANGING NOW TO EVERY 8 HOURS. PATIENT STILL STRICT NONWEIGHTBEARING RIGHT LOWER EXTREMITY FOR THREE MONTHS. ORTHOPEDIC FOLLOWING WILL SEE PATIENT NEXT TIME BETWEEN AND . PATIENT IS HOMELESS WITH [facility] WHICH EXPLAINS DIFFICULT SITUATION TO DISCHARGE PATIENT IN CONSIDERATION OF NONWEIGHTBEARING STATUS. Rufino Campos May 20, 2016 08:46
[2016-05-20] MEDS: CALCIUM/VITAMIN D 250 MG/125 U TAB PO SCH ×3 (09:25→17:08)
[2016-05-20] MEDS: CHOLECALCIFEROL (VIT D3) 1000 UNIT TAB PO SCH (09:25)
[2016-05-20] MEDS: ENOXAPARIN SODIUM 30 MG/0.3 ML SYRINGE SQ SCH (09:25)
[2016-05-20] MEDS: ACETAMINOPHEN/HYDROcodone 325 MG/7.5 MG TAB PO PRN ×2 (09:28→21:39)
[2016-05-20 20:15] VITALS: BP 118/84; PULSE 78; RESP 18; TEMP 96.6; O2SAT 78
[2016-05-21 08:00] VITALS: BP 101/71; PULSE 76; RESP 16; TEMP 97.3; O2SAT 97
[2016-05-21] MEDS: CALCIUM/VITAMIN D 250 MG/125 U TAB PO SCH ×3 (09:36→17:41)
[2016-05-21] MEDS: CHOLECALCIFEROL (VIT D3) 1000 UNIT TAB PO SCH (09:36)
[2016-05-21] MEDS: ENOXAPARIN SODIUM 30 MG/0.3 ML SYRINGE SQ SCH (09:36)
--- NOTE | 2016-05-21 09:36 | HHI.PR ---
Subjective Remarks Patient seen and examined today. Patient denies any new complaints. No change in clinical status. Objective Vitals Vital Signs Date Time Temp Pulse Resp B/P Pulse Ox O2 Delivery O2 Flow Rate FiO2 05/20/16 20:15 96.6 78 18 118/84 78 05/20/16 10:28 12 I/O 05/20/16 05/20/16 05/20/16 05/21/16 05/21/16 05/21/16 07:00 15:00 23:00 07:00 15:00 23:00 Intake Total 960 ml 480 ml Balance 960 ml 480 ml Intake Oral 960 ml 480 ml # Voids 2 3 3 1 # Bowel Movements 1 Objective Remarks GENERAL: Well-developed, well-nourished, in no acute distress. alert and orientated HEENT: Head is normocephalic without any lesions or masses noted. Facial features are symmetric. Eyes: Pupils equal round reactive to light. Extraocular muscles are intact. Conjunctivae were clear. NECK: Supple without any masses. Trachea midline no deviation. No JVD, CARDIAC: Regular rhythm, regular rate. S1/S2 are heard. No murmurs gallops or rubs. LUNGS: Clear to auscultation bilaterally. No wheeze, rhonchi or rales. No use of accessory muscles on inspiration or expiration. ABDOMEN: Soft, nontender. Nondistended. Bowel sounds heard in all 4 quadrants. No organomegaly or masses. Negative rebound, negative guarding EXTREMITIES: No edema,. No cyanosis or clubbing. Right lower extremity is in splint NEUROLOGY: Mood and affect appear appropriate. Cranial nerves II through XII grossly intact. Moving all extremities, speech is clear Procedures 04/30/16: Removal of deep hardware, open reduction internal fixation right tibia nonunion, open reduction internal fixation right fibula nonunion, iliac crest bone grafting with stem cell graft Urinary Catheter: No Vascular Central Line Catheter: No A/P Assessment and Plan Right distal tibia/fibula nonunion Status postsurgical intervention with removal of deep hardware, open reduction internal fixation right tibia nonunion, open reduction internal fixation of fibula nonunion, iliac crest bone grafting with stem cell graft Strict nonweightbearing right lower extremity, elevation, maintain splint Daily dressing changes right iliac crest bone graft site Orthopedic following for management and care, discussed with orthopedist for staple removal Removed right hip petros 05/21/16 Pain control [place] 7.5/325 one tablet every 12 hours as needed for pain 4-10 DVT prevention Subcutaneous Lovenox Discharge Planning Case management managing discharge planning 05/16/16 PATIENT COMPLAINS TO PA THAT HE HURTS ALL OVER AND THAT HIS ARMS ARE SORE FROM THE ACCIDENT HE HAD. PATIENT HAS BEEN USING [facility] EVERY 6 HOURS AND MD CHANGING NOW TO EVERY 8 HOURS. PATIENT STILL STRICT NONWEIGHTBEARING RIGHT LOWER EXTREMITY FOR THREE MONTHS. ORTHOPEDIC FOLLOWING WILL SEE PATIENT NEXT TIME BETWEEN AND . PATIENT IS HOMELESS WITH [facility] WHICH EXPLAINS DIFFICULT SITUATION TO DISCHARGE PATIENT IN CONSIDERATION OF NONWEIGHTBEARING STATUS. Rufino Campos May 21, 2016 09:36
[2016-05-21] MEDS: ERGOCALCIFEROL (VIT D2) 50,000 UNIT CAP PO SCH (12:19)
[2016-05-21] MEDS: ACETAMINOPHEN/HYDROcodone 325 MG/7.5 MG TAB PO PRN (17:47)
[2016-05-21 20:00] VITALS: BP 109/75; PULSE 73; RESP 18; TEMP 97.3; O2SAT 97
[2016-05-22 08:00] VITALS: BP 122/84; PULSE 66; RESP 20; TEMP 97; O2SAT 97
[2016-05-22] MEDS: CALCIUM/VITAMIN D 250 MG/125 U TAB PO SCH ×3 (08:26→17:51)
[2016-05-22] MEDS: DOCUSATE SODIUM 50 MG/SENNA 8.6 MG TAB PO PRN ×2 (08:26→20:32)
[2016-05-22] MEDS: ENOXAPARIN SODIUM 30 MG/0.3 ML SYRINGE SQ SCH (08:26)
[2016-05-22] MEDS: CHOLECALCIFEROL (VIT D3) 1000 UNIT TAB PO SCH (08:26)
[2016-05-22] MEDS: ACETAMINOPHEN/HYDROcodone 325 MG/7.5 MG TAB PO PRN ×2 (08:26→20:33)
--- NOTE | 2016-05-22 14:26 | HHI.PR ---
Subjective Remarks Patient seen and examined today. Patient denies any new complaints. No change in clinical status. Objective Vitals Vital Signs Date Time Temp Pulse Resp B/P Pulse Ox O2 Delivery O2 Flow Rate FiO2 05/22/16 08:00 97.0 66 20 122/84 97 05/21/16 20:00 97.3 73 18 109/75 97 I/O 05/21/16 05/21/16 05/21/16 05/22/16 05/22/16 05/22/16 07:00 15:00 23:00 07:00 15:00 23:00 Intake Total 600 ml 600 ml 700 ml Balance 600 ml 600 ml 700 ml Intake Oral 600 ml 600 ml 700 ml # Voids 1 3 3 Objective Remarks GENERAL: Well-developed, well-nourished, in no acute distress. alert and orientated HEENT: Head is normocephalic without any lesions or masses noted. Facial features are symmetric. Eyes: Pupils equal round reactive to light. Extraocular muscles are intact. Conjunctivae were clear. NECK: Supple without any masses. Trachea midline no deviation. No JVD, CARDIAC: Regular rhythm, regular rate. S1/S2 are heard. No murmurs gallops or rubs. LUNGS: Clear to auscultation bilaterally. No wheeze, rhonchi or rales. No use of accessory muscles on inspiration or expiration. ABDOMEN: Soft, nontender. Nondistended. Bowel sounds heard in all 4 quadrants. No organomegaly or masses. Negative rebound, negative guarding EXTREMITIES: No edema,. No cyanosis or clubbing. Right lower extremity is in splint NEUROLOGY: Mood and affect appear appropriate. Cranial nerves II through XII grossly intact. Moving all extremities, speech is clear Procedures 04/30/16: Removal of deep hardware, open reduction internal fixation right tibia nonunion, open reduction internal fixation right fibula nonunion, iliac crest bone grafting with stem cell graft Urinary Catheter: No Vascular Central Line Catheter: No A/P Assessment and Plan Right distal tibia/fibula nonunion Status postsurgical intervention with removal of deep hardware, open reduction internal fixation right tibia nonunion, open reduction internal fixation of fibula nonunion, iliac crest bone grafting with stem cell graft Strict nonweightbearing right lower extremity, elevation, maintain splint Daily dressing changes right iliac crest bone graft site Orthopedic following for management and care, discussed with orthopedist for staple removal Removed right hip petros 05/21/16 Pain control [place] 7.5/325 one tablet every 12 hours as needed for pain 4-10 DVT prevention Subcutaneous Lovenox Discharge Planning Case management managing discharge planning 05/16/16 PATIENT COMPLAINS TO PA THAT HE HURTS ALL OVER AND THAT HIS ARMS ARE SORE FROM THE ACCIDENT HE HAD. PATIENT HAS BEEN USING [facility] EVERY 6 HOURS AND MD CHANGING NOW TO EVERY 8 HOURS. PATIENT STILL STRICT NONWEIGHTBEARING RIGHT LOWER EXTREMITY FOR THREE MONTHS. ORTHOPEDIC FOLLOWING WILL SEE PATIENT NEXT TIME BETWEEN AND . PATIENT IS HOMELESS WITH [facility] WHICH EXPLAINS DIFFICULT SITUATION TO DISCHARGE PATIENT IN CONSIDERATION OF NONWEIGHTBEARING STATUS. Rufino Campos. ELIJAH May 22, 2016 14:26
[2016-05-22 20:00] VITALS: BP 117/80; PULSE 77; RESP 20; TEMP 96; O2SAT 97
[2016-05-23 08:00] VITALS: BP 115/74; PULSE 71; RESP 18; TEMP 95.7; O2SAT 97
[2016-05-23] MEDS: CHOLECALCIFEROL (VIT D3) 1000 UNIT TAB PO SCH (09:15)
[2016-05-23] MEDS: CALCIUM/VITAMIN D 250 MG/125 U TAB PO SCH ×3 (09:15→18:08)
[2016-05-23] MEDS: ACETAMINOPHEN/HYDROcodone 325 MG/7.5 MG TAB PO PRN ×2 (09:16→22:04)
[2016-05-23] MEDS: ENOXAPARIN SODIUM 30 MG/0.3 ML SYRINGE SQ SCH (09:16)
--- NOTE | 2016-05-23 10:04 | HHI.PR ---
Subjective Remarks Patient seen and examined today. Patient denies any new complaints. No change in clinical status Objective Vitals Vital Signs Date Time Temp Pulse Resp B/P Pulse Ox O2 Delivery O2 Flow Rate FiO2 05/23/16 08:00 95.7 71 18 115/74 97 05/22/16 20:00 96.0 77 20 117/80 97 I/O 05/22/16 05/22/16 05/22/16 05/23/16 05/23/16 05/23/16 06:59 14:59 22:59 06:59 14:59 22:59 Intake Total 600 ml 700 ml 480 ml 240 ml Balance 600 ml 700 ml 480 ml 240 ml Intake Oral 600 ml 700 ml 480 ml 240 ml # Voids 3 2 2 # Bowel Movements 0 Objective Remarks GENERAL: Well-developed, well-nourished, in no acute distress. alert and orientated HEENT: Head is normocephalic without any lesions or masses noted. Facial features are symmetric. Eyes: Pupils equal round reactive to light. Extraocular muscles are intact. Conjunctivae were clear. NECK: Supple without any masses. Trachea midline no deviation. No JVD, CARDIAC: Regular rhythm, regular rate. S1/S2 are heard. No murmurs gallops or rubs. LUNGS: Clear to auscultation bilaterally. No wheeze, rhonchi or rales. No use of accessory muscles on inspiration or expiration. ABDOMEN: Soft, nontender. Nondistended. Bowel sounds heard in all 4 quadrants. No organomegaly or masses. Negative rebound, negative guarding EXTREMITIES: No edema,. No cyanosis or clubbing. Right lower extremity is in splint NEUROLOGY: Mood and affect appear appropriate. Cranial nerves II through XII grossly intact. Moving all extremities, speech is clear Procedures 04/30/16: Removal of deep hardware, open reduction internal fixation right tibia nonunion, open reduction internal fixation right fibula nonunion, iliac crest bone grafting with stem cell graft A/P Assessment and Plan Right distal tibia/fibula nonunion Status postsurgical intervention with removal of deep hardware, open reduction internal fixation right tibia nonunion, open reduction internal fixation of fibula nonunion, iliac crest bone grafting with stem cell graft Strict nonweightbearing right lower extremity, elevation, maintain splint Daily dressing changes right iliac crest bone graft site Orthopedic following for management and care, discussed with orthopedist for staple removal Removed right hip petros 05/21/16 Pain control [place] 7.5/325 one tablet every 12 hours as needed for pain 4-10 DVT prevention Subcutaneous Lovenox Discharge Planning Case management managing discharge planning 05/21/16 0906 PATIENT WITH NWB RLE. AND NEED TO BE THIS FOR ANOTHER COUPLE OF MONTHS. PATIENT HOMELESS WITH NO SECURE [place] OF CONPLIANCE WITH NWB STATUS IN COMMUNITY. ORTHO IS CONCERNED OF DAMAGE AN RE-INJURY IF PATIENT NOT CONPLIANT. LOOKING FOR ALTERNATE AVENUES TO ASSURE CONPLIANCE. WITHOUT THIS THERE IS NOT A SAFE D/C AND ORTHO WANTS THIS. WILL CONTINUE TO SEARCH ALTERNITIVES WALLY BROOKE LPN/CM/CHARGE Rufino Campos May 23, 2016 10:04
[2016-05-23 20:00] VITALS: BP 117/81; PULSE 71; RESP 20; TEMP 97.8; O2SAT 99
[2016-05-24 08:00] VITALS: BP 113/86; PULSE 86; RESP 16; TEMP 97; O2SAT 97
[2016-05-24] MEDS: CALCIUM/VITAMIN D 250 MG/125 U TAB PO SCH ×3 (08:34→17:14)
[2016-05-24] MEDS: CHOLECALCIFEROL (VIT D3) 1000 UNIT TAB PO SCH (08:35)
--- NOTE | 2016-05-24 09:20 | HHI.PR ---
Subjective Remarks Patient seen and examined today. Patient denies any new complaints. No change in clinical status. Objective Vitals Vital Signs Date Time Temp Pulse Resp B/P Pulse Ox O2 Delivery O2 Flow Rate FiO2 05/24/16 08:00 97.0 86 16 113/86 97 05/23/16 20:00 97.8 71 20 117/81 99 05/23/16 10:16 16 I/O 05/23/16 05/23/16 05/23/16 05/24/16 05/24/16 05/24/16 07:00 15:00 23:00 07:00 15:00 23:00 Intake Total 240 ml 360 ml 480 ml Balance 240 ml 360 ml 480 ml Intake Oral 240 ml 360 ml 480 ml # Voids 2 2 2 2 # Bowel Movements 0 0 0 0 Objective Remarks GENERAL: Well-developed, well-nourished, in no acute distress. alert and orientated HEENT: Head is normocephalic without any lesions or masses noted. Facial features are symmetric. Eyes: Pupils equal round reactive to light. Extraocular muscles are intact. Conjunctivae were clear. NECK: Supple without any masses. Trachea midline no deviation. No JVD, CARDIAC: Regular rhythm, regular rate. S1/S2 are heard. No murmurs gallops or rubs. LUNGS: Clear to auscultation bilaterally. No wheeze, rhonchi or rales. No use of accessory muscles on inspiration or expiration. ABDOMEN: Soft, nontender. Nondistended. Bowel sounds heard in all 4 quadrants. No organomegaly or masses. Negative rebound, negative guarding EXTREMITIES: No edema,. No cyanosis or clubbing. Right lower extremity is in splint NEUROLOGY: Mood and affect appear appropriate. Cranial nerves II through XII grossly intact. Moving all extremities, speech is clear Procedures 04/30/16: Removal of deep hardware, open reduction internal fixation right tibia nonunion, open reduction internal fixation right fibula nonunion, iliac crest bone grafting with stem cell graft Urinary Catheter: No Vascular Central Line Catheter: No A/P Assessment and Plan Right distal tibia/fibula nonunion Status postsurgical intervention with removal of deep hardware, open reduction internal fixation right tibia nonunion, open reduction internal fixation of fibula nonunion, iliac crest bone grafting with stem cell graft Strict nonweightbearing right lower extremity, elevation, maintain splint Daily dressing changes right iliac crest bone graft site Orthopedic following for management and care, discussed with orthopedist for staple removal Removed right hip petros 05/21/16 Pain control [place] 7.5/325 one tablet every 12 hours as needed for pain 4-10 DVT prevention Subcutaneous Lovenox Discharge Planning Case management managing discharge planning 05/21/16 0906 PATIENT WITH NWB RLE. AND NEED TO BE THIS FOR ANOTHER COUPLE OF MONTHS. PATIENT HOMELESS WITH NO SECURE GAURANTEE OF CONPLIANCE WITH NWB STATUS IN COMMUNITY. ORTHO IS CONCERNED OF DAMAGE AN RE-INJURY IF PATIENT NOT CONPLIANT. LOOKING FOR ALTERNATE AVENUES TO ASSURE CONPLIANCE. WITHOUT THIS THERE IS NOT A SAFE D/C AND ORTHO WANTS THIS. WILL CONTINUE TO SEARCH ALTERNITIVES WALLY BROOKE LPN/CM/CHARGE Rufino Campos May 24, 2016 09:20
[2016-05-24] MEDS: ENOXAPARIN SODIUM 30 MG/0.3 ML SYRINGE SQ SCH (09:46)
[2016-05-24] MEDS: ACETAMINOPHEN/HYDROcodone 325 MG/7.5 MG TAB PO PRN (19:55)
[2016-05-24 20:00] VITALS: BP 118/81; PULSE 78; RESP 20; TEMP 97.7; O2SAT 98
[2016-05-25 08:00] VITALS: BP 118/76; PULSE 72; RESP 18; TEMP 97.7; O2SAT 99
[2016-05-25] MEDS: ENOXAPARIN SODIUM 30 MG/0.3 ML SYRINGE SQ SCH (08:52)
[2016-05-25] MEDS: CALCIUM/VITAMIN D 250 MG/125 U TAB PO SCH ×3 (08:53→16:35)
[2016-05-25] MEDS: ACETAMINOPHEN/HYDROcodone 325 MG/7.5 MG TAB PO PRN ×2 (08:53→21:35)
[2016-05-25] MEDS: CHOLECALCIFEROL (VIT D3) 1000 UNIT TAB PO SCH (08:53)
--- NOTE | 2016-05-25 14:39 | HHI.PR ---
Subjective Remarks Patient seen and examined today with Dr. Ching, patient denies any new complaints. No change in clinical status Objective Vitals Vital Signs Date Time Temp Pulse Resp B/P Pulse Ox O2 Delivery O2 Flow Rate FiO2 05/25/16 09:53 14 05/25/16 08:00 97.7 72 18 118/76 99 05/24/16 20:00 97.7 78 20 118/81 98 I/O 05/24/16 05/24/16 05/24/16 05/25/16 05/25/16 05/25/16 06:59 14:59 22:59 06:59 14:59 22:59 Intake Total 630 ml 480 ml 960 ml Balance 630 ml 480 ml 960 ml Intake Oral 630 ml 480 ml 960 ml # Voids 2 3 2 1 7 # Bowel Movements 0 1 0 Objective Remarks GENERAL: Well-developed, well-nourished, in no acute distress. alert and orientated HEENT: Head is normocephalic without any lesions or masses noted. Facial features are symmetric. Eyes: Pupils equal round reactive to light. Extraocular muscles are intact. Conjunctivae were clear. NECK: Supple without any masses. Trachea midline no deviation. No JVD, CARDIAC: Regular rhythm, regular rate. S1/S2 are heard. No murmurs gallops or rubs. LUNGS: Clear to auscultation bilaterally. No wheeze, rhonchi or rales. No use of accessory muscles on inspiration or expiration. ABDOMEN: Soft, nontender. Nondistended. Bowel sounds heard in all 4 quadrants. No organomegaly or masses. Negative rebound, negative guarding EXTREMITIES: No edema,. No cyanosis or clubbing. Right lower extremity is in splint NEUROLOGY: Mood and affect appear appropriate. Cranial nerves II through XII grossly intact. Moving all extremities, speech is clear Procedures 04/30/16: Removal of deep hardware, open reduction internal fixation right tibia nonunion, open reduction internal fixation right fibula nonunion, iliac crest bone grafting with stem cell graft Urinary Catheter: No Vascular Central Line Catheter: No A/P Assessment and Plan Right distal tibia/fibula nonunion Status postsurgical intervention with removal of deep hardware, open reduction internal fixation right tibia nonunion, open reduction internal fixation of fibula nonunion, iliac crest bone grafting with stem cell graft Strict nonweightbearing right lower extremity, elevation, maintain splint Daily dressing changes right iliac crest bone graft site Orthopedic following for management and care, discussed with orthopedist for staple removal Removed right hip petros 05/21/16 Pain control [place] 7.5/325 one tablet every 12 hours as needed for pain 4-10 DVT prevention Subcutaneous Lovenox Discharge Planning Case management managing discharge planning 05/21/16 0906 PATIENT WITH NWB RLE. AND NEED TO BE THIS FOR ANOTHER COUPLE OF MONTHS. PATIENT HOMELESS WITH NO SECURE GAURANTEE OF CONPLIANCE WITH NWB STATUS IN COMMUNITY. ORTHO IS CONCERNED OF DAMAGE AN RE-INJURY IF PATIENT NOT CONPLIANT. LOOKING FOR ALTERNATE AVENUES TO ASSURE CONPLIANCE. WITHOUT THIS THERE IS NOT A SAFE D/C AND ORTHO WANTS THIS. WILL CONTINUE TO SEARCH ALTERNITIVES WALLY BROOKE LPN/CM/CHARGE Rufino Campos May 25, 2016 14:39
[2016-05-25 20:44] VITALS: BP 129/86; PULSE 90; RESP 20; TEMP 97.9; O2SAT 96
[2016-05-26 08:00] VITALS: BP 112/77; PULSE 81; RESP 16; TEMP 98.9; O2SAT 98
[2016-05-26] MEDS: CHOLECALCIFEROL (VIT D3) 1000 UNIT TAB PO SCH (09:02)
[2016-05-26] MEDS: ENOXAPARIN SODIUM 30 MG/0.3 ML SYRINGE SQ SCH (09:02)
[2016-05-26] MEDS: ACETAMINOPHEN/HYDROcodone 325 MG/7.5 MG TAB PO PRN (09:03)
[2016-05-26] MEDS: CALCIUM/VITAMIN D 250 MG/125 U TAB PO SCH ×3 (09:03→16:56)
--- NOTE | 2016-05-26 10:33 | HHI.PR ---
Subjective Remarks No acute complaints. No change in clinical status. Objective Vitals Vital Signs Date Time Temp Pulse Resp B/P Pulse Ox O2 Delivery O2 Flow Rate FiO2 05/26/16 10:29 12 05/26/16 08:00 98.9 81 16 112/77 98 05/25/16 20:44 97.9 90 20 129/86 96 I/O 05/25/16 05/25/16 05/25/16 05/26/16 05/26/16 05/26/16 07:00 15:00 23:00 07:00 15:00 23:00 Intake Total 1440 ml 240 ml Balance 1440 ml 240 ml Intake Oral 1440 ml 240 ml # Voids 1 9 2 # Bowel Movements 1 Objective Remarks GENERAL: Well-nourished, well-developed patient in no apparent distress. SKIN: Warm and dry. CARDIOVASCULAR: Regular rate and rhythm. RESPIRATORY: No accessory muscle use. Clear to auscultation. Breath sounds equal bilaterally. GASTROINTESTINAL: Abdomen soft, nontender, nondistended. MUSCULOSKELETAL: Splint right lower extremity. Moves toes of right foot. Capillary refill normal in digits of right foot. NEUROLOGICAL: Awake and alert. Sensation to touch grossly intact over digits of right foot. Normal speech. PSYCHIATRIC: Insight and judgment normal. Procedures 04/30/16: Removal of deep hardware, open reduction internal fixation right tibia nonunion, open reduction internal fixation right fibula nonunion, iliac crest bone grafting with stem cell graft Urinary Catheter: No Vascular Central Line Catheter: No A/P Problem List: (1) Tibia/fibula fracture ICD Code: S82.209A Status: Acute Assessment and Plan Right distal tibia/fibula nonunion Status postsurgical intervention with removal of deep hardware, open reduction internal fixation right tibia nonunion, open reduction internal fixation of fibula nonunion, iliac crest bone grafting with stem cell graft Strict nonweightbearing right lower extremity, elevation, maintain splint Daily dressing changes right iliac crest bone graft site Orthopedic following for management and care, discussed with orthopedist for staple removal Removed right hip petros 05/21/16 Pain control [place] 7.5/325 one tablet every 12 hours as needed for pain 4-10 DVT prevention Subcutaneous Lovenox Discharge Planning Patient homeless, improving with crutches. Concern for compliance if discharged. Will need clearance from orthopedics prior to discharge. Problem Qualifiers (1) Tibia/fibula fracture: Kelli Barton May 26, 2016 10:33
[2016-05-26 20:00] VITALS: BP 130/77; PULSE 83; RESP 20; TEMP 98.1; O2SAT 98
[2016-05-27 07:43] VITALS: BP 124/81; PULSE 76; RESP 18; TEMP 97.8; O2SAT 98
[2016-05-27] MEDS: ENOXAPARIN SODIUM 30 MG/0.3 ML SYRINGE SQ SCH (08:15)
[2016-05-27] MEDS: ACETAMINOPHEN/HYDROcodone 325 MG/7.5 MG TAB PO PRN ×2 (08:15→20:21)
[2016-05-27] MEDS: CALCIUM/VITAMIN D 250 MG/125 U TAB PO SCH ×3 (08:16→17:30)
[2016-05-27] MEDS: CHOLECALCIFEROL (VIT D3) 1000 UNIT TAB PO SCH (08:16)
--- NOTE | 2016-05-27 11:50 | HHI.PR ---
Subjective Remarks Follow-up status post ORIF right lower extremity. Patient states he has body aches from his previous injuries. Objective Vitals Vital Signs Date Time Temp Pulse Resp B/P Pulse Ox O2 Delivery O2 Flow Rate FiO2 05/27/16 09:31 14 05/27/16 07:43 97.8 76 18 124/81 98 05/26/16 20:00 98.1 83 20 130/77 98 I/O 05/26/16 05/26/16 05/26/16 05/27/16 05/27/16 05/27/16 06:59 14:59 22:59 06:59 14:59 22:59 Intake Total 240 ml 720 ml 600 ml 120 ml Balance 240 ml 720 ml 600 ml 120 ml Intake Oral 240 ml 720 ml 600 ml 120 ml # Voids 3 2 2 # Bowel Movements 0 0 Objective Remarks GENERAL: Well-nourished, well-developed patient in no apparent distress. CARDIOVASCULAR: Regular rate and rhythm. RESPIRATORY: No accessory muscle use. Clear to auscultation. Breath sounds equal bilaterally. MUSCULOSKELETAL: Splint right lower extremity. Moves toes of right foot. Capillary refill normal in digits of right foot. NEUROLOGICAL: Awake and alert. Sensation to touch grossly intact over digits of right foot. Normal speech. Procedures 04/30/16: Removal of deep hardware, open reduction internal fixation right tibia nonunion, open reduction internal fixation right fibula nonunion, iliac crest bone grafting with stem cell graft Urinary Catheter: No Vascular Central Line Catheter: No A/P Problem List: (1) Tibia/fibula fracture ICD Code: S82.209A Status: Acute Assessment and Plan Right distal tibia/fibula nonunion Status post surgical intervention with removal of deep hardware, open reduction internal fixation right tibia nonunion, open reduction internal fixation of fibula nonunion, iliac crest bone grafting with stem cell graft. Strict nonweightbearing right lower extremity, elevation, maintain splint Daily dressing changes right iliac crest bone graft site Orthopedic following for management and care Right hip staple removal 05/21/16 Pain control [place] 7.5/325 one tablet every 12 hours as needed for pain 4-10 DVT prevention Subcutaneous Lovenox Discharge Planning Patient homeless, improving with crutches. Concern for compliance if discharged. Will need clearance from orthopedics prior to discharge. Problem Qualifiers (1) Tibia/fibula fracture: Kelli Barton May 27, 2016 11:50
[2016-05-27] MEDS: ACETAMINOPHEN 325 MG TAB PO PRN ×2 (12:50→17:30)
[2016-05-27 20:00] VITALS: BP 113/78; PULSE 80; RESP 18; TEMP 97.2; O2SAT 99
[2016-05-28 08:00] VITALS: BP 122/91; PULSE 92; RESP 16; TEMP 96.9; O2SAT 98
[2016-05-28] MEDS: CHOLECALCIFEROL (VIT D3) 1000 UNIT TAB PO SCH (09:42)
[2016-05-28] MEDS: CALCIUM/VITAMIN D 250 MG/125 U TAB PO SCH ×3 (09:42→16:25)
[2016-05-28] MEDS: ACETAMINOPHEN/HYDROcodone 325 MG/7.5 MG TAB PO PRN ×2 (09:42→19:59)
[2016-05-28] MEDS: ENOXAPARIN SODIUM 30 MG/0.3 ML SYRINGE SQ SCH (09:43)
--- NOTE | 2016-05-28 11:20 | HHI.PR ---
Subjective Remarks No acute complaints. No change in clinical status. Objective Vitals Vital Signs Date Time Temp Pulse Resp B/P Pulse Ox O2 Delivery O2 Flow Rate FiO2 05/28/16 10:50 12 05/28/16 08:00 96.9 92 16 122/91 98 05/27/16 20:00 97.2 80 18 113/78 99 05/27/16 18:31 12 I/O 05/27/16 05/27/16 05/27/16 05/28/16 05/28/16 05/28/16 07:00 15:00 23:00 07:00 15:00 23:00 Intake Total 120 ml 240 ml 0 ml Balance 120 ml 240 ml 0 ml Intake Oral 120 ml 240 ml IV Total 0 ml 0 ml # Voids 2 5 1 Imaging Last Impressions Ankle X-Ray 04/30/16 0000 Signed Impressions: Service Date/Time: April 09:54 - CONCLUSION: Distal fibular and tibial hardware appears to be in good position status post revision. Chente Spain MD Objective Remarks GENERAL: Well-nourished, well-developed patient in no apparent distress sitting on side of bed. Friend at bedside. CARDIOVASCULAR: Regular rate and rhythm. RESPIRATORY: No accessory muscle use. Clear to auscultation. Breath sounds equal bilaterally. GASTROINTESTINAL: Abdomen soft, nontender, nondistended. MUSCULOSKELETAL: Splint right lower extremity. Moves toes of right foot. Capillary refill normal in digits of right foot. NEUROLOGICAL: Awake and alert. Sensation to touch grossly intact over digits of right foot. Normal speech. Procedures 04/30/16: Removal of deep hardware, open reduction internal fixation right tibia nonunion, open reduction internal fixation right fibula nonunion, iliac crest bone grafting with stem cell graft Urinary Catheter: No Vascular Central Line Catheter: No A/P Problem List: (1) Tibia/fibula fracture ICD Code: S82.209A Status: Acute Assessment and Plan Right distal tibia/fibula nonunion Status post surgical intervention with removal of deep hardware, open reduction internal fixation right tibia nonunion, open reduction internal fixation of fibula nonunion, iliac crest bone grafting with stem cell graft. Strict nonweightbearing right lower extremity, elevation, maintain splint Daily dressing changes right iliac crest bone graft site Orthopedic following for management and care Right hip staple removal 05/21/16 Pain control [place] 7.5/325 one tablet every 12 hours as needed for pain 4-10 DVT prevention Subcutaneous Lovenox Discharge Planning Patient homeless, improving with crutches. Concern for compliance if discharged. Will need clearance from orthopedics prior to discharge. Problem Qualifiers (1) Tibia/fibula fracture: Kelli Barton May 28, 2016 11:20
[2016-05-28] MEDS: ERGOCALCIFEROL (VIT D2) 50,000 UNIT CAP PO SCH (12:46)
--- NOTE | 2016-05-28 19:16 | PD.ORT.PN ---
Subjective Subjective Remarks Pain controlled. No new complaints Objective Vitals Vital Signs Date Time Temp Pulse Resp B/P Pulse Ox O2 Delivery O2 Flow Rate FiO2 05/28/16 10:50 12 05/28/16 08:00 96.9 92 16 122/91 98 05/27/16 20:00 97.2 80 18 113/78 99 I/O 05/27/16 05/27/16 05/27/16 05/28/16 05/28/16 05/28/16 07:00 15:00 23:00 07:00 15:00 23:00 Intake Total 120 ml 240 ml 0 ml 690 ml Balance 120 ml 240 ml 0 ml 690 ml Intake Oral 120 ml 240 ml 690 ml IV Total 0 ml 0 ml # Voids 2 5 4 1 # Bowel Movements 1 Imaging Last 72 hours Impressions Ankle X-Ray 04/30/16 0000 Signed Impressions: Service Date/Time: April 09:54 - CONCLUSION: Distal fibular and tibial hardware appears to be in good position status post revision. Chente Spain MD Objective Remarks Right lower extremity: Splint taken down. Incision clean dry and intact with sutures in place. Sutures removed. Intact sensation distally in all his toes. Ankle range of motion is from 5 dorsiflexion to 30 of plantarflexion. Minimal swelling. Xeroform placed over incision and splint reapplied Assessment & Plan Assessment and Plan 1) Revision right tibial pilon fracture with removal of hardware and iliac crest bone graft and open reduction internal fixation 04/30/16 Strict nonweightbearing right lower extremity 3 months postop [facility] for new [place] splint on 05/29/2016 Lovenox X-rays ordered today to evaluate postoperative alignment MAXIMO SOTELO PA-C May 28, 2016 19:16
--- NOTE | 2016-05-28 19:59 | RADHPO ---
EXAM DATE/TIME: 05/28/2016 19:45 [facility] COMPARISON: ANKLE RIGHT LIMITED (AP&LAT), April 30, 2016, 9:54. INDICATIONS : Post Op Right Ankle MEDICAL HISTORY : None. SURGICAL HISTORY : ORIF right ankle. ENCOUNTER: Subsequent ACUITY: 4 - 6 days PAIN SCORE: 4/10 LOCATION: Right Ankle FINDINGS: Nonacute fractures status post screw and plate fixation with at least one revision noted of the dista l tibia and fibula. These appear to be healing in near-anatomic alignment. No acute fracture is seen. There is osteopenia. The study is obtained through a cast which obscures fine bony detail. CONCLUSION: Healing distal tibia and fibula fractures status post screw and plate fixation, near-anatomic alignme nt. Alphonso Cody MD on May 28, 2016 at 19:56 Board Certified Radiologist. This report was verified electronically.
[2016-05-28 20:00] VITALS: BP 124/77; PULSE 83; RESP 18; TEMP 98.5; O2SAT 98
[2016-05-29 07:57] VITALS: BP 108/66; PULSE 64; RESP 16; TEMP 97.8; O2SAT 99
[2016-05-29 08:00] VITALS: BP 108/66; PULSE 64; RESP 16; TEMP 97.8; O2SAT 99
[2016-05-29] MEDS: CALCIUM/VITAMIN D 250 MG/125 U TAB PO SCH ×3 (09:28→17:26)
[2016-05-29] MEDS: ENOXAPARIN SODIUM 30 MG/0.3 ML SYRINGE SQ SCH (09:28)
[2016-05-29] MEDS: CHOLECALCIFEROL (VIT D3) 1000 UNIT TAB PO SCH (09:28)
[2016-05-29] MEDS: ACETAMINOPHEN/HYDROcodone 325 MG/7.5 MG TAB PO PRN ×2 (09:28→21:45)
--- NOTE | 2016-05-29 18:08 | HHI.PR ---
Subjective Remarks No acute complaints. No change in clinical status. Objective Vitals Vital Signs Date Time Temp Pulse Resp B/P Pulse Ox O2 Delivery O2 Flow Rate FiO2 05/29/16 08:00 97.8 64 16 108/66 99 05/29/16 07:57 97.8 64 16 108/66 99 05/28/16 20:00 98.5 83 18 124/77 98 I/O 05/28/16 05/28/16 05/28/16 05/29/16 05/29/16 05/29/16 07:00 15:00 23:00 07:00 15:00 23:00 Intake Total 0 ml 690 ml 420 ml 440 ml 360 ml Balance 0 ml 690 ml 420 ml 440 ml 360 ml Intake Oral 690 ml 420 ml 440 ml 360 ml IV Total 0 ml # Voids 4 2 2 2 # Bowel Movements 1 0 0 1 Objective Remarks GENERAL: Well-nourished, well-developed patient in no apparent distress standing up on crutches at bedside. CARDIOVASCULAR: Regular rate and rhythm. RESPIRATORY: No accessory muscle use. Mild rhonchi over the left upper lobe which improves with cough. MUSCULOSKELETAL: Splint right lower extremity. Moves toes of right foot. Capillary refill normal in digits of right foot. NEUROLOGICAL: Awake and alert. Sensation to touch grossly intact over digits of right foot. Normal speech. Procedures 04/30/16: Removal of deep hardware, open reduction internal fixation right tibia nonunion, open reduction internal fixation right fibula nonunion, iliac crest bone grafting with stem cell graft Urinary Catheter: No Vascular Central Line Catheter: No A/P Problem List: (1) Tibia/fibula fracture ICD Code: S82.209A Status: Acute Assessment and Plan Right distal tibia/fibula nonunion Status post surgical intervention with removal of deep hardware, open reduction internal fixation right tibia nonunion, open reduction internal fixation of fibula nonunion, iliac crest bone grafting with stem cell graft. Strict nonweightbearing right lower extremity for 3 months postop, elevation, maintain splint Daily dressing changes right iliac crest bone graft site Orthopedic following for management and care. Ortho PA evaluated the patient yesterday and ordered for patient to have new [place] splint today 05/29, but apparently signal technician has not come to replace splint yet. I have paged signal technician; awaiting response. Right hip staple removal 05/21/16 Pain control [place] 7.5/325 one tablet every 12 hours as needed for pain 4-10 DVT prevention Subcutaneous Lovenox Discharge Planning Patient homeless, improving with crutches. Concern for compliance if discharged. Will need clearance from orthopedics prior to discharge. Problem Qualifiers (1) Tibia/fibula fracture: Kelli Barton May 29, 2016 18:08
[2016-05-29 20:58] VITALS: BP 118/76; PULSE 68; RESP 18; TEMP 97.1; O2SAT 99
[2016-05-30 08:00] VITALS: BP 120/84; PULSE 68; RESP 18; TEMP 96.4; O2SAT 99
[2016-05-30] MEDS: CHOLECALCIFEROL (VIT D3) 1000 UNIT TAB PO SCH (08:47)
[2016-05-30] MEDS: ENOXAPARIN SODIUM 30 MG/0.3 ML SYRINGE SQ SCH (08:47)
[2016-05-30] MEDS: ACETAMINOPHEN/HYDROcodone 325 MG/7.5 MG TAB PO PRN ×2 (08:48→21:26)
[2016-05-30] MEDS: CALCIUM/VITAMIN D 250 MG/125 U TAB PO SCH ×3 (08:48→17:15)
--- NOTE | 2016-05-30 16:12 | HHI.PR ---
Subjective Remarks Patient still has not had his splint replaced. I spoke with Rangel, the robotic maintenance technician at the main hospital. He will come tonight to replace the splint. Patient has no acute complaints. Objective Vitals Vital Signs Date Time Temp Pulse Resp B/P Pulse Ox O2 Delivery O2 Flow Rate FiO2 05/30/16 10:01 14 05/30/16 08:00 96.4 68 18 120/84 99 05/29/16 20:58 97.1 68 18 118/76 99 I/O 05/29/16 05/29/16 05/29/16 05/30/16 05/30/16 05/30/16 07:00 15:00 23:00 07:00 15:00 23:00 Intake Total 440 ml 360 ml 360 ml Balance 440 ml 360 ml 360 ml Intake Oral 440 ml 360 ml 360 ml # Voids 2 2 2 2 # Bowel Movements 0 1 Imaging Last Impressions Ankle X-Ray 05/28/16 0000 Signed Impressions: Service Date/Time: April 19:45 - CONCLUSION: Healing distal tibia and fibula fractures status post screw and plate fixation, near-anatomic alignment. Alphonso Cody MD Objective Remarks GENERAL: Well-nourished, well-developed patient in no apparent distress. CARDIOVASCULAR: Regular rate and rhythm. RESPIRATORY: No accessory muscle use. CTAB. GASTROINTESTINAL: Normoactive bowel sounds. Abdomen soft, nontender, nondistended. MUSCULOSKELETAL: Splint right lower extremity. Moves toes of right foot. Capillary refill normal in digits of right foot. NEUROLOGICAL: Awake and alert. Sensation to touch grossly intact over digits of right foot. Normal speech. Procedures 04/30/16: Removal of deep hardware, open reduction internal fixation right tibia nonunion, open reduction internal fixation right fibula nonunion, iliac crest bone grafting with stem cell graft Urinary Catheter: No Vascular Central Line Catheter: No A/P Problem List: (1) Tibia/fibula fracture ICD Code: S82.209A Status: Acute Assessment and Plan Right distal tibia/fibula nonunion Status post surgical intervention with removal of deep hardware, open reduction internal fixation right tibia nonunion, open reduction internal fixation of fibula nonunion, iliac crest bone grafting with stem cell graft. Strict nonweightbearing right lower extremity for 3 months postop, elevation, maintain splint Daily dressing changes right iliac crest bone graft site Orthopedic following for management and care. New [place] splint was to be applied on 05/29, but rn orthopaedic has not come to replace splint yet. I have spoken with rn orthopaedic who will come tonight. Right hip staple removal 05/21/16 Pain control [place] 7.5/325 one tablet every 12 hours as needed for pain 4-10 DVT prevention Subcutaneous Lovenox Discharge Planning Patient homeless, improving with crutches. Concern for compliance if discharged. Will need clearance from orthopedics prior to discharge. Problem Qualifiers (1) Tibia/fibula fracture: Kelli Barton May 30, 2016 16:12
[2016-05-30 20:00] VITALS: BP 115/76; PULSE 87; RESP 18; TEMP 97.7; O2SAT 97
[2016-05-31 08:00] VITALS: BP 105/80; PULSE 80; RESP 16; TEMP 98.7; O2SAT 99
[2016-05-31] MEDS: ACETAMINOPHEN/HYDROcodone 325 MG/7.5 MG TAB PO PRN ×2 (09:11→21:06)
[2016-05-31] MEDS: CALCIUM/VITAMIN D 250 MG/125 U TAB PO SCH ×3 (09:11→17:16)
[2016-05-31] MEDS: CHOLECALCIFEROL (VIT D3) 1000 UNIT TAB PO SCH (09:11)
[2016-05-31] MEDS: ENOXAPARIN SODIUM 30 MG/0.3 ML SYRINGE SQ SCH (09:11)
--- NOTE | 2016-05-31 11:22 | HHI.PR ---
Subjective Remarks No acute complaints. Patient tells me the orthopaedic surgeon came this morning to replace his splint. Objective Vitals Vital Signs Date Time Temp Pulse Resp B/P Pulse Ox O2 Delivery O2 Flow Rate FiO2 05/31/16 08:00 98.7 80 16 105/80 99 05/30/16 20:00 97.7 87 18 115/76 97 I/O 05/30/16 05/30/16 05/30/16 05/31/16 05/31/16 05/31/16 07:00 15:00 23:00 07:00 15:00 23:00 Intake Total 360 ml 480 ml Balance 360 ml 480 ml Intake Oral 360 ml 480 ml # Voids 2 3 1 1 Objective Remarks GENERAL: Well-nourished, well-developed patient in no apparent distress. CARDIOVASCULAR: Regular rate and rhythm. RESPIRATORY: No accessory muscle use. CTAB. MUSCULOSKELETAL: Splint right lower extremity. Moves toes of right foot. Capillary refill normal in digits of right foot. NEUROLOGICAL: Awake and alert. Sensation to touch grossly intact over digits of right foot. Normal speech. Procedures 04/30/16: Removal of deep hardware, open reduction internal fixation right tibia nonunion, open reduction internal fixation right fibula nonunion, iliac crest bone grafting with stem cell graft Urinary Catheter: No Vascular Central Line Catheter: No A/P Problem List: (1) Tibia/fibula fracture ICD Code: S82.209A Status: Acute Assessment and Plan Right distal tibia/fibula nonunion Status post surgical intervention with removal of deep hardware, open reduction internal fixation right tibia nonunion, open reduction internal fixation of fibula nonunion, iliac crest bone grafting with stem cell graft. Strict nonweightbearing right lower extremity for 3 months postop, elevation, maintain splint Daily dressing changes right iliac crest bone graft site Orthopedic following for management and care. New [place] splint applied today. Right hip staple removal 05/21/16 Pain control [place] 7.5/325 one tablet every 12 hours as needed for pain 4-10 DVT prevention Subcutaneous Lovenox Discharge Planning Patient homeless, improving with crutches. Concern for compliance if discharged. Will need clearance from orthopedics prior to discharge. Problem Qualifiers (1) Tibia/fibula fracture: Kelli Barton May 31, 2016 11:21
[2016-05-31 20:00] VITALS: BP 100/71; PULSE 70; RESP 18; TEMP 97.9; O2SAT 97
[2016-06-01 08:00] VITALS: BP 104/75; PULSE 78; RESP 16; TEMP 98.1; O2SAT 98
--- NOTE | 2016-06-01 08:39 | HHI.PR ---
Subjective Remarks No acute complaints. No change in clinical status. Objective Vitals Vital Signs Date Time Temp Pulse Resp B/P Pulse Ox O2 Delivery O2 Flow Rate FiO2 06/01/16 08:00 98.1 78 16 104/75 98 05/31/16 20:00 97.9 70 18 100/71 97 05/31/16 10:11 16 I/O 05/31/16 05/31/16 05/31/16 06/01/16 06/01/16 06/01/16 07:00 15:00 23:00 07:00 15:00 23:00 Intake Total 600 ml Balance 600 ml Intake Oral 600 ml # Voids 1 1 4 2 # Bowel Movements 1 0 Objective Remarks GENERAL: Well-nourished, well-developed patient in no apparent distress. CARDIOVASCULAR: Regular rate and rhythm. RESPIRATORY: No accessory muscle use. CTAB. MUSCULOSKELETAL: Splint right lower extremity. Moves toes of right foot. Capillary refill normal in digits of right foot. NEUROLOGICAL: Awake and alert. Sensation to touch grossly intact over digits of right foot. Normal speech. Procedures 04/30/16: Removal of deep hardware, open reduction internal fixation right tibia nonunion, open reduction internal fixation right fibula nonunion, iliac crest bone grafting with stem cell graft Urinary Catheter: No Vascular Central Line Catheter: No A/P Problem List: (1) Tibia/fibula fracture ICD Code: S82.209A Status: Acute Assessment and Plan Right distal tibia/fibula nonunion Status post surgical intervention with removal of deep hardware, open reduction internal fixation right tibia nonunion, open reduction internal fixation of fibula nonunion, iliac crest bone grafting with stem cell graft. Strict nonweightbearing right lower extremity for 3 months postop, elevation, maintain splint Daily dressing changes right iliac crest bone graft site Orthopedic following for management and care. New [place] splint applied on 05/31. Right hip staple removal 05/21/16 Pain control [place] 7.5/325 one tablet every 12 hours as needed for pain 4-10 DVT prevention Subcutaneous Lovenox Discharge Planning Patient homeless, improving with crutches. Concern for compliance if discharged. Will need clearance from orthopedics prior to discharge. Problem Qualifiers (1) Tibia/fibula fracture: Kelli Barton Jun 01, 2016 08:39
[2016-06-01] MEDS: ACETAMINOPHEN/HYDROcodone 325 MG/7.5 MG TAB PO PRN (09:50)
[2016-06-01] MEDS: CALCIUM/VITAMIN D 250 MG/125 U TAB PO SCH ×3 (09:50→17:53)
[2016-06-01] MEDS: CHOLECALCIFEROL (VIT D3) 1000 UNIT TAB PO SCH (09:50)
[2016-06-01] MEDS: ENOXAPARIN SODIUM 30 MG/0.3 ML SYRINGE SQ SCH (09:51)
[2016-06-01 20:00] VITALS: BP 118/88; PULSE 72; RESP 18; TEMP 96.1; O2SAT 97
[2016-06-02] MEDS: ACETAMINOPHEN/HYDROcodone 325 MG/7.5 MG TAB PO PRN ×2 (06:43→18:23)
[2016-06-02 07:55] VITALS: BP 132/95; PULSE 75; RESP 16; TEMP 97.9; O2SAT 98
--- NOTE | 2016-06-02 08:15 | HHI.PR ---
Subjective Remarks Patient examined today. Patient denies any new complaints. No change in clinical status Objective Vitals Vital Signs Date Time Temp Pulse Resp B/P Pulse Ox O2 Delivery O2 Flow Rate FiO2 06/02/16 07:55 97.9 75 16 132/95 98 06/02/16 07:49 14 06/01/16 20:00 96.1 72 18 118/88 97 I/O 06/01/16 06/01/16 06/01/16 06/02/16 06/02/16 06/02/16 07:00 15:00 23:00 07:00 15:00 23:00 Intake Total 720 ml Balance 720 ml Intake Oral 720 ml # Voids 2 2 1 1 # Bowel Movements 0 1 Objective Remarks GENERAL: Well-developed, well-nourished, in no acute distress. alert and orientated HEENT: Head is normocephalic without any lesions or masses noted. Facial features are symmetric. Eyes: Extraocular muscles are intact. Conjunctivae were clear. NECK: Trachea midline no deviation. CARDIAC: Regular rhythm, regular rate. S1/S2 are heard. No murmurs gallops or rubs. LUNGS: Clear to auscultation bilaterally. No wheeze, rhonchi or rales. No use of accessory muscles on inspiration or expiration. ABDOMEN: Soft, nontender. Nondistended. Bowel sounds heard in all 4 quadrants. No organomegaly or masses. Negative rebound, negative guarding EXTREMITIES: No edema,. No cyanosis or clubbing. Right lower extremity is in splint NEUROLOGY: Mood and affect appear appropriate. Cranial nerves II through XII grossly intact. Moving all extremities, speech is clear Procedures 04/30/16: Removal of deep hardware, open reduction internal fixation right tibia nonunion, open reduction internal fixation right fibula nonunion, iliac crest bone grafting with stem cell graft Urinary Catheter: No Vascular Central Line Catheter: No A/P Assessment and Plan Right distal tibia/fibula nonunion Status postsurgical intervention with removal of deep hardware, open reduction internal fixation right tibia nonunion, open reduction internal fixation of fibula nonunion, iliac crest bone grafting with stem cell graft Strict nonweightbearing right lower extremity, elevation, maintain splint 3 months from date of surgery 04/30/16 [facility] for new [place] splint on 05/29/16 Orthopedic following for management and care Removed right hip petros 05/21/16 Pain control [place] 7.5/325 one tablet every 12 hours as needed for pain 4-10 DVT prevention Subcutaneous Lovenox Discharge Planning Case management managing discharge planning 05/21/16 0906 PATIENT WITH NWB RLE. AND NEED TO BE THIS FOR ANOTHER COUPLE OF MONTHS. PATIENT HOMELESS WITH NO SECURE GAURANTEE OF CONPLIANCE WITH NWB STATUS IN COMMUNITY. ORTHO IS CONCERNED OF DAMAGE AN RE-INJURY IF PATIENT NOT CONPLIANT. LOOKING FOR ALTERNATE AVENUES TO ASSURE CONPLIANCE. WITHOUT THIS THERE IS NOT A SAFE D/C AND ORTHO WANTS THIS. WILL CONTINUE TO SEARCH ALTERNITIVES WALLY BROOKE LPN/CM/CHARGE Rufino Campos Jun 02, 2016 08:15
[2016-06-02] MEDS: CALCIUM/VITAMIN D 250 MG/125 U TAB PO SCH ×3 (08:29→17:01)
[2016-06-02] MEDS: CHOLECALCIFEROL (VIT D3) 1000 UNIT TAB PO SCH (08:29)
[2016-06-02 09:08] VITALS: TEMP 96.1
[2016-06-02] MEDS: ENOXAPARIN SODIUM 30 MG/0.3 ML SYRINGE SQ SCH (10:35)
[2016-06-02 20:00] VITALS: BP 120/86; PULSE 75; RESP 18; TEMP 97.9; O2SAT 96
[2016-06-03] MEDS: ENOXAPARIN SODIUM 30 MG/0.3 ML SYRINGE SQ SCH (07:39)
[2016-06-03] MEDS: CHOLECALCIFEROL (VIT D3) 1000 UNIT TAB PO SCH (07:39)
[2016-06-03] MEDS: CALCIUM/VITAMIN D 250 MG/125 U TAB PO SCH ×3 (07:39→17:04)
[2016-06-03] MEDS: ACETAMINOPHEN 325 MG TAB PO PRN ×2 (07:40→19:16)
[2016-06-03 08:00] VITALS: BP 136/99; PULSE 70; RESP 18; TEMP 95.3; O2SAT 100
--- NOTE | 2016-06-03 08:23 | HHI.PR ---
Subjective Remarks Patient seen and examined today. Patient denies any new complaints. No change in clinical status. Patient requesting to discontinue [place] and only continue Tylenol Objective Vitals Vital Signs Date Time Temp Pulse Resp B/P Pulse Ox O2 Delivery O2 Flow Rate FiO2 06/02/16 20:00 97.9 75 18 120/86 96 06/02/16 19:29 18 06/02/16 09:08 96.1 I/O 06/02/16 06/02/16 06/02/16 06/03/16 06/03/16 06/03/16 07:00 15:00 23:00 07:00 15:00 23:00 Intake Total 480 ml 240 ml 240 ml Balance 480 ml 240 ml 240 ml Intake Oral 480 ml 240 ml 240 ml # Voids 4 2 0 # Bowel Movements 0 0 Objective Remarks GENERAL: Well-developed, well-nourished, in no acute distress. alert and orientated HEENT: Head is normocephalic without any lesions or masses noted. Facial features are symmetric. Eyes: Extraocular muscles are intact. Conjunctivae were clear. NECK: Trachea midline no deviation. CARDIAC: Regular rhythm, regular rate. S1/S2 are heard. No murmurs gallops or rubs. LUNGS: Clear to auscultation bilaterally. No wheeze, rhonchi or rales. No use of accessory muscles on inspiration or expiration. ABDOMEN: Soft, nontender. Nondistended. Bowel sounds heard in all 4 quadrants. No organomegaly or masses. Negative rebound, negative guarding EXTREMITIES: No edema,. No cyanosis or clubbing. Right lower extremity is in splint NEUROLOGY: Mood and affect appear appropriate. Cranial nerves II through XII grossly intact. Moving all extremities, speech is clear Procedures 04/30/16: Removal of deep hardware, open reduction internal fixation right tibia nonunion, open reduction internal fixation right fibula nonunion, iliac crest bone grafting with stem cell graft Urinary Catheter: No Vascular Central Line Catheter: No A/P Assessment and Plan Right distal tibia/fibula nonunion Status postsurgical intervention with removal of deep hardware, open reduction internal fixation right tibia nonunion, open reduction internal fixation of fibula nonunion, iliac crest bone grafting with stem cell graft Strict nonweightbearing right lower extremity, elevation, maintain splint 3 months from date of surgery 12/1/16 [facility] for new [place] splint on 05/29/16 Orthopedic following for management and care Removed right hip petros 05/21/16 Pain control Discontinue [place] 7.5/325 one tablet every 12 hours as needed for pain 4-10 DVT prevention Subcutaneous Lovenox Discharge Planning Case management managing discharge planning 05/21/16 0906 PATIENT WITH NWB RLE. AND NEED TO BE THIS FOR ANOTHER COUPLE OF MONTHS. PATIENT HOMELESS WITH NO SECURE GAURANTEE OF CONPLIANCE WITH NWB STATUS IN COMMUNITY. ORTHO IS CONCERNED OF DAMAGE AN RE-INJURY IF PATIENT NOT CONPLIANT. LOOKING FOR ALTERNATE AVENUES TO ASSURE CONPLIANCE. WITHOUT THIS THERE IS NOT A SAFE D/C AND ORTHO WANTS THIS. WILL CONTINUE TO SEARCH ALTERNITIVES WALLY BROOKE LPN/CM/CHARGE Rufino Campos Jun 03, 2016 08:23
[2016-06-03 20:00] VITALS: BP 122/84; PULSE 79; RESP 16; TEMP 98.5; O2SAT 97
[2016-06-04 07:44] VITALS: BP 130/92; PULSE 80; RESP 18; TEMP 98; O2SAT 96
[2016-06-04] MEDS: ACETAMINOPHEN 325 MG TAB PO PRN ×3 (07:53→20:11)
[2016-06-04] MEDS: ENOXAPARIN SODIUM 30 MG/0.3 ML SYRINGE SQ SCH (07:53)
[2016-06-04] MEDS: CHOLECALCIFEROL (VIT D3) 1000 UNIT TAB PO SCH (07:54)
[2016-06-04] MEDS: CALCIUM/VITAMIN D 250 MG/125 U TAB PO SCH ×3 (07:54→17:18)
[2016-06-04 08:39] VITALS: BP 130/92; PULSE 80; RESP 18; TEMP 98; O2SAT 96
--- NOTE | 2016-06-04 09:07 | HHI.PR ---
Subjective Remarks Patient seen and examined today. Patient denies any new complaints. No change in clinical status. Objective Vitals Vital Signs Date Time Temp Pulse Resp B/P Pulse Ox O2 Delivery O2 Flow Rate FiO2 06/04/16 08:59 14 06/04/16 08:39 98.0 80 18 130/92 96 06/04/16 07:44 98.0 80 18 130/92 96 06/03/16 20:00 98.5 79 16 122/84 97 I/O 06/03/16 06/03/16 06/03/16 06/04/16 06/04/16 06/04/16 07:00 15:00 23:00 07:00 15:00 23:00 Intake Total 240 ml 620 ml 450 ml 240 ml Balance 240 ml 620 ml 450 ml 240 ml Intake Oral 240 ml 620 ml 450 ml 240 ml # Voids 0 2 2 1 # Bowel Movements 0 0 0 0 Objective Remarks GENERAL: Well-developed, well-nourished, in no acute distress. alert and orientated HEENT: Head is normocephalic without any lesions or masses noted. Facial features are symmetric. Eyes: Extraocular muscles are intact. Conjunctivae were clear. NECK: Trachea midline no deviation. CARDIAC: Regular rhythm, regular rate. S1/S2 are heard. No murmurs gallops or rubs. LUNGS: Clear to auscultation bilaterally. No wheeze, rhonchi or rales. No use of accessory muscles on inspiration or expiration. ABDOMEN: Soft, nontender. Nondistended. Bowel sounds heard in all 4 quadrants. No organomegaly or masses. Negative rebound, negative guarding EXTREMITIES: No edema,. No cyanosis or clubbing. Right lower extremity is in splint NEUROLOGY: Mood and affect appear appropriate. Cranial nerves II through XII grossly intact. Moving all extremities, speech is clear Procedures 04/30/16: Removal of deep hardware, open reduction internal fixation right tibia nonunion, open reduction internal fixation right fibula nonunion, iliac crest bone grafting with stem cell graft Urinary Catheter: No Vascular Central Line Catheter: No A/P Assessment and Plan Right distal tibia/fibula nonunion Status postsurgical intervention with removal of deep hardware, open reduction internal fixation right tibia nonunion, open reduction internal fixation of fibula nonunion, iliac crest bone grafting with stem cell graft Strict nonweightbearing right lower extremity, elevation, maintain splint 3 months from date of surgery 04/30/16 [facility] for new [place] splint on 05/29/16 Orthopedic following for management and care Removed right hip petros 05/21/16 Pain control: Tylenol every 6 hours as needed DVT prevention Subcutaneous Lovenox Discharge Planning Case management managing discharge planning 05/21/16 0906 PATIENT WITH NWB RLE. AND NEED TO BE THIS FOR ANOTHER COUPLE OF MONTHS. PATIENT HOMELESS WITH NO SECURE GAURANTEE OF CONPLIANCE WITH NWB STATUS IN COMMUNITY. ORTHO IS CONCERNED OF DAMAGE AN RE-INJURY IF PATIENT NOT CONPLIANT. LOOKING FOR ALTERNATE AVENUES TO ASSURE CONPLIANCE. WITHOUT THIS THERE IS NOT A SAFE D/C AND ORTHO WANTS THIS. WILL CONTINUE TO SEARCH ALTERNITIVES WALLY BROOKE LPN/CM/CHARGE Rufino Campos Jun 04, 2016 09:06
[2016-06-04] MEDS: ERGOCALCIFEROL (VIT D2) 50,000 UNIT CAP PO SCH (13:11)
[2016-06-04 20:00] VITALS: BP 127/88; PULSE 78; RESP 16; TEMP 98.1; O2SAT 97
[2016-06-05] MEDS: ENOXAPARIN SODIUM 30 MG/0.3 ML SYRINGE SQ SCH (08:32)
[2016-06-05] MEDS: CALCIUM/VITAMIN D 250 MG/125 U TAB PO SCH ×3 (08:32→17:21)
[2016-06-05] MEDS: ACETAMINOPHEN 325 MG TAB PO PRN ×2 (08:33→19:39)
[2016-06-05] MEDS: CHOLECALCIFEROL (VIT D3) 1000 UNIT TAB PO SCH (08:33)
[2016-06-05 08:53] VITALS: BP_SYST 127; BP_SYST 134; BP_DIAS 88; PULSE 78; PULSE 91; RESP 16; RESP 20; TEMP 97.9; TEMP 98.1; O2SAT 97; O2SAT 98
--- NOTE | 2016-06-05 09:28 | HHI.PR ---
Subjective Remarks Patient seen and examined today. Patient denies any new complaints. No change in clinical status. Objective Vitals Vital Signs Date Time Temp Pulse Resp B/P Pulse Ox O2 Delivery O2 Flow Rate FiO2 06/05/16 08:53 97.9 91 20 134/88 98 06/04/16 21:14 18 06/04/16 20:00 98.1 78 16 127/88 97 I/O 06/04/16 06/04/16 06/04/16 06/05/16 06/05/16 06/05/16 07:00 15:00 23:00 07:00 15:00 23:00 Intake Total 240 ml 850 ml 620 ml 360 ml Output Total 1 ml Balance 240 ml 849 ml 620 ml 360 ml Intake Oral 240 ml 850 ml 620 ml 360 ml Stool Total 1 ml # Voids 1 5 3 1 # Bowel Movements 0 0 0 Objective Remarks GENERAL: Well-developed, well-nourished, in no acute distress. alert and orientated HEENT: Head is normocephalic without any lesions or masses noted. Facial features are symmetric. Eyes: Extraocular muscles are intact. Conjunctivae were clear. NECK: Trachea midline no deviation. CARDIAC: Regular rhythm, regular rate. S1/S2 are heard. No murmurs gallops or rubs. LUNGS: Clear to auscultation bilaterally. No wheeze, rhonchi or rales. No use of accessory muscles on inspiration or expiration. ABDOMEN: Soft, nontender. Nondistended. Bowel sounds heard in all 4 quadrants. No organomegaly or masses. Negative rebound, negative guarding EXTREMITIES: No edema,. No cyanosis or clubbing. Right lower extremity is in splint NEUROLOGY: Mood and affect appear appropriate. Cranial nerves II through XII grossly intact. Moving all extremities, speech is clear Procedures 04/30/16: Removal of deep hardware, open reduction internal fixation right tibia nonunion, open reduction internal fixation right fibula nonunion, iliac crest bone grafting with stem cell graft Urinary Catheter: No Vascular Central Line Catheter: No A/P Assessment and Plan Right distal tibia/fibula nonunion Status postsurgical intervention with removal of deep hardware, open reduction internal fixation right tibia nonunion, open reduction internal fixation of fibula nonunion, iliac crest bone grafting with stem cell graft Strict nonweightbearing right lower extremity, elevation, maintain splint 3 months from date of surgery 04/30/16 [facility] for new [place] splint on 05/29/16 Orthopedic following for management and care Removed right hip petros 05/21/16 Pain control: Tylenol every 6 hours as needed DVT prevention Subcutaneous Lovenox Discharge Planning Case management managing discharge planning 05/21/16 0906 PATIENT WITH NWB RLE. AND NEED TO BE THIS FOR ANOTHER COUPLE OF MONTHS. PATIENT HOMELESS WITH NO SECURE GAURANTEE OF CONPLIANCE WITH NWB STATUS IN COMMUNITY. ORTHO IS CONCERNED OF DAMAGE AN RE-INJURY IF PATIENT NOT CONPLIANT. LOOKING FOR ALTERNATE AVENUES TO ASSURE CONPLIANCE. WITHOUT THIS THERE IS NOT A SAFE D/C AND ORTHO WANTS THIS. WILL CONTINUE TO SEARCH ALTERNITIVES WALLY BROOKE LPN/CM/CHARGE Rufino Campos Jun 05, 2016 09:28
[2016-06-05 20:10] VITALS: BP 120/76; PULSE 85; RESP 18; TEMP 98.6; O2SAT 98
[2016-06-06] MEDS: ACETAMINOPHEN 325 MG TAB PO PRN ×2 (06:15→21:43)
[2016-06-06 08:00] VITALS: BP 125/82; PULSE 76; RESP 17; TEMP 97.9; O2SAT 95
--- NOTE | 2016-06-06 08:00 | HHI.PR ---
Subjective Remarks Patient seen and examined today. Patient denies any new complaints. No change in clinical status. Objective Vitals Vital Signs Date Time Temp Pulse Resp B/P Pulse Ox O2 Delivery O2 Flow Rate FiO2 06/06/16 07:29 14 06/05/16 20:10 98.6 85 18 120/76 98 06/05/16 08:53 97.9 91 20 134/88 98 I/O 06/05/16 06/05/16 06/05/16 06/06/16 06/06/16 06/06/16 07:00 15:00 23:00 07:00 15:00 23:00 Intake Total 360 ml 1000 ml Balance 360 ml 1000 ml Intake Oral 360 ml 1000 ml # Voids 1 4 2 # Bowel Movements 0 1 Objective Remarks GENERAL: Well-developed, well-nourished, in no acute distress. alert and orientated HEENT: Head is normocephalic without any lesions or masses noted. Facial features are symmetric. Eyes: Extraocular muscles are intact. Conjunctivae were clear. NECK: Trachea midline no deviation. CARDIAC: Regular rhythm, regular rate. S1/S2 are heard. No murmurs gallops or rubs. LUNGS: Clear to auscultation bilaterally. No wheeze, rhonchi or rales. No use of accessory muscles on inspiration or expiration. ABDOMEN: Soft, nontender. Nondistended. Bowel sounds heard in all 4 quadrants. No organomegaly or masses. Negative rebound, negative guarding EXTREMITIES: No edema,. No cyanosis or clubbing. Right lower extremity is in splint NEUROLOGY: Mood and affect appear appropriate. Cranial nerves II through XII grossly intact. Moving all extremities, speech is clear Procedures 04/30/16: Removal of deep hardware, open reduction internal fixation right tibia nonunion, open reduction internal fixation right fibula nonunion, iliac crest bone grafting with stem cell graft Urinary Catheter: No Vascular Central Line Catheter: No A/P Assessment and Plan Right distal tibia/fibula nonunion Status postsurgical intervention with removal of deep hardware, open reduction internal fixation right tibia nonunion, open reduction internal fixation of fibula nonunion, iliac crest bone grafting with stem cell graft Strict nonweightbearing right lower extremity, elevation, maintain splint 3 months from date of surgery 04/30/16 [facility] for new [place] splint on 05/29/16 Orthopedic following for management and care Removed right hip petros 05/21/16 Pain control: Tylenol every 6 hours as needed DVT prevention Subcutaneous Lovenox Discharge Planning Case management managing discharge planning 05/21/16 0906 PATIENT WITH NWB RLE. AND NEED TO BE THIS FOR ANOTHER COUPLE OF MONTHS. PATIENT HOMELESS WITH NO SECURE GAURANTEE OF CONPLIANCE WITH NWB STATUS IN COMMUNITY. ORTHO IS CONCERNED OF DAMAGE AN RE-INJURY IF PATIENT NOT CONPLIANT. LOOKING FOR ALTERNATE AVENUES TO ASSURE CONPLIANCE. WITHOUT THIS THERE IS NOT A SAFE D/C AND ORTHO WANTS THIS. WILL CONTINUE TO SEARCH ALTERNITIVES WALLY BROOKE LPN/CM/CHARGE Rufino Campos Jun 06, 2016 08:00
[2016-06-06] MEDS: CHOLECALCIFEROL (VIT D3) 1000 UNIT TAB PO SCH (08:27)
[2016-06-06] MEDS: ENOXAPARIN SODIUM 30 MG/0.3 ML SYRINGE SQ SCH (08:27)
[2016-06-06] MEDS: CALCIUM/VITAMIN D 250 MG/125 U TAB PO SCH ×3 (08:27→17:37)
[2016-06-06 20:01] VITALS: BP 139/91; PULSE 88; RESP 20; TEMP 97.8; O2SAT 97
[2016-06-06] MEDS: TEMAZEPAM 15 MG CAP PO PRN (21:43)
[2016-06-07 08:00] VITALS: BP 140/93; PULSE 74; RESP 17; TEMP 97.8; O2SAT 99
[2016-06-07] MEDS: CHOLECALCIFEROL (VIT D3) 1000 UNIT TAB PO SCH (08:25)
[2016-06-07] MEDS: CALCIUM/VITAMIN D 250 MG/125 U TAB PO SCH ×3 (08:25→17:02)
[2016-06-07] MEDS: ENOXAPARIN SODIUM 30 MG/0.3 ML SYRINGE SQ SCH (08:27)
--- NOTE | 2016-06-07 10:06 | HHI.PR ---
Subjective Remarks Patient seen and examined today. Patient states that he slept better with Restoril last night. Objective Vitals Vital Signs Date Time Temp Pulse Resp B/P Pulse Ox O2 Delivery O2 Flow Rate FiO2 06/07/16 08:00 97.8 74 17 140/93 99 06/06/16 20:01 97.8 88 20 139/91 97 I/O 06/06/16 06/06/16 06/06/16 06/07/16 06/07/16 06/07/16 07:00 15:00 23:00 07:00 15:00 23:00 Intake Total 960 ml Balance 960 ml Intake Oral 960 ml # Voids 2 2 1 1 # Bowel Movements 0 Objective Remarks GENERAL: Well-developed, well-nourished, in no acute distress. alert and orientated HEENT: Head is normocephalic without any lesions or masses noted. Facial features are symmetric. Eyes: Extraocular muscles are intact. Conjunctivae were clear. NECK: Trachea midline no deviation. CARDIAC: Regular rhythm, regular rate. S1/S2 are heard. No murmurs gallops or rubs. LUNGS: Clear to auscultation bilaterally. No wheeze, rhonchi or rales. No use of accessory muscles on inspiration or expiration. ABDOMEN: Soft, nontender. Nondistended. Bowel sounds heard in all 4 quadrants. No organomegaly or masses. Negative rebound, negative guarding EXTREMITIES: No edema,. No cyanosis or clubbing. Right lower extremity is in splint NEUROLOGY: Mood and affect appear appropriate. Cranial nerves II through XII grossly intact. Moving all extremities, speech is clear Procedures 04/30/16: Removal of deep hardware, open reduction internal fixation right tibia nonunion, open reduction internal fixation right fibula nonunion, iliac crest bone grafting with stem cell graft Urinary Catheter: No Vascular Central Line Catheter: No A/P Assessment and Plan Right distal tibia/fibula nonunion Status postsurgical intervention with removal of deep hardware, open reduction internal fixation right tibia nonunion, open reduction internal fixation of fibula nonunion, iliac crest bone grafting with stem cell graft Strict nonweightbearing right lower extremity, elevation, maintain splint 3 months from date of surgery 04/30/16 [facility] for [facility] splint on 05/29/16 Orthopedic following for management and care Removed right hip petros 05/21/16 Pain control: Tylenol every 6 hours as needed DVT prevention Subcutaneous Lovenox Discharge Planning Case management managing discharge planning 05/21/16 0906 PATIENT WITH NWB RLE. AND NEED TO BE THIS FOR ANOTHER COUPLE OF MONTHS. PATIENT HOMELESS WITH NO SECURE GAURANTEE OF CONPLIANCE WITH NWB STATUS IN COMMUNITY. ORTHO IS CONCERNED OF DAMAGE AN RE-INJURY IF PATIENT NOT CONPLIANT. LOOKING FOR ALTERNATE AVENUES TO ASSURE CONPLIANCE. WITHOUT THIS THERE IS NOT A SAFE D/C AND ORTHO WANTS THIS. WILL CONTINUE TO SEARCH ALTERNITIVES WALLY BROOKE LPN/CM/CHARGE Rufino Campos Jun 07, 2016 10:06
[2016-06-07 20:00] VITALS: BP 134/90; PULSE 89; RESP 18; TEMP 97.7; O2SAT 100
[2016-06-07] MEDS: TEMAZEPAM 15 MG CAP PO PRN (21:50)
[2016-06-07] MEDS: ACETAMINOPHEN 325 MG TAB PO PRN (21:51)
[2016-06-08] MEDS: CHOLECALCIFEROL (VIT D3) 1000 UNIT TAB PO SCH (07:34)
[2016-06-08] MEDS: CALCIUM/VITAMIN D 250 MG/125 U TAB PO SCH ×3 (07:34→16:34)
[2016-06-08] MEDS: ENOXAPARIN SODIUM 30 MG/0.3 ML SYRINGE SQ SCH (07:34)
[2016-06-08] MEDS: ACETAMINOPHEN 325 MG TAB PO PRN ×3 (07:38→22:43)
[2016-06-08 08:00] VITALS: BP 134/89; PULSE 68; RESP 20; TEMP 96.8; O2SAT 98
--- NOTE | 2016-06-08 11:47 | HHI.PR ---
Subjective Remarks Patient seen and examined today. Patient denies any new complaints. No change clinical status. Objective Vitals Vital Signs Date Time Temp Pulse Resp B/P Pulse Ox O2 Delivery O2 Flow Rate FiO2 06/08/16 08:38 14 06/08/16 08:00 96.8 68 20 134/89 98 06/07/16 20:00 97.7 89 18 134/90 100 I/O 06/07/16 06/07/16 06/07/16 06/08/16 06/08/16 06/08/16 07:00 15:00 23:00 07:00 15:00 23:00 Intake Total 360 ml 240 ml 240 ml Balance 360 ml 240 ml 240 ml Intake Oral 360 ml 240 ml 240 ml # Voids 1 2 1 3 # Bowel Movements 0 0 Objective Remarks GENERAL: Well-developed, well-nourished, in no acute distress. alert and orientated HEENT: Head is normocephalic without any lesions or masses noted. Facial features are symmetric. Eyes: Extraocular muscles are intact. Conjunctivae were clear. NECK: Trachea midline no deviation. CARDIAC: Regular rhythm, regular rate. S1/S2 are heard. No murmurs gallops or rubs. LUNGS: Clear to auscultation bilaterally. No wheeze, rhonchi or rales. No use of accessory muscles on inspiration or expiration. ABDOMEN: Soft, nontender. Nondistended. Bowel sounds heard in all 4 quadrants. No organomegaly or masses. Negative rebound, negative guarding EXTREMITIES: No edema,. No cyanosis or clubbing. Right lower extremity is in splint NEUROLOGY: Mood and affect appear appropriate. Cranial nerves II through XII grossly intact. Moving all extremities, speech is clear Procedures 04/30/16: Removal of deep hardware, open reduction internal fixation right tibia nonunion, open reduction internal fixation right fibula nonunion, iliac crest bone grafting with stem cell graft Urinary Catheter: No Vascular Central Line Catheter: No A/P Assessment and Plan Right distal tibia/fibula nonunion Status postsurgical intervention with removal of deep hardware, open reduction internal fixation right tibia nonunion, open reduction internal fixation of fibula nonunion, iliac crest bone grafting with stem cell graft Strict nonweightbearing right lower extremity, elevation, maintain splint 3 months from date of surgery [facility]30[facility] following for management and care Removed right hip petros 05/21/16 Pain control: Tylenol every 6 hours as needed DVT prevention Subcutaneous Lovenox Discharge Planning Case management managing discharge planning 05/21/16 0906 PATIENT WITH NWB RLE. AND NEED TO BE THIS FOR ANOTHER COUPLE OF MONTHS. PATIENT HOMELESS WITH NO SECURE GAURANTEE OF CONPLIANCE WITH NWB STATUS IN COMMUNITY. ORTHO IS CONCERNED OF DAMAGE AN RE-INJURY IF PATIENT NOT CONPLIANT. LOOKING FOR ALTERNATE AVENUES TO ASSURE CONPLIANCE. WITHOUT THIS THERE IS NOT A SAFE D/C AND ORTHO WANTS THIS. WILL CONTINUE TO SEARCH ALTERNITIVES WALLY BROOKE LPN/CM/CHARGE Rufino Campos Jun 08, 2016 11:47
[2016-06-08 20:00] VITALS: BP 137/83; PULSE 80; RESP 15; TEMP 97.9; O2SAT 98
[2016-06-09 08:41] VITALS: BP 135/42; PULSE 82; RESP 18; TEMP 98.9; O2SAT 98
--- NOTE | 2016-06-09 09:04 | HHI.PR ---
Subjective Remarks No acute complaints. No change in clinical status. Objective Vitals Vital Signs Date Time Temp Pulse Resp B/P Pulse Ox O2 Delivery O2 Flow Rate FiO2 06/09/16 08:41 98.9 82 18 135/42 98 06/08/16 20:00 97.9 80 15 137/83 98 06/08/16 15:00 12 I/O 06/08/16 06/08/16 06/08/16 06/09/16 06/09/16 06/09/16 07:00 15:00 23:00 07:00 15:00 23:00 Intake Total 240 ml 480 ml 480 ml Balance 240 ml 480 ml 480 ml Intake Oral 240 ml 480 ml 480 ml # Voids 3 5 3 1 1 # Bowel Movements 0 1 0 0 Imaging Last Impressions Ankle X-Ray 05/28/16 0000 Signed Impressions: Service Date/Time: April 19:45 - CONCLUSION: Healing distal tibia and fibula fractures status post screw and plate fixation, near-anatomic alignment. Alphonso Cody MD Objective Remarks GENERAL: Well-nourished, well-developed patient in no apparent distress. CARDIOVASCULAR: Regular rate and rhythm. RESPIRATORY: No accessory muscle use. CTAB. MUSCULOSKELETAL: Splint right lower extremity. Moves toes of right foot. Capillary refill normal in digits of right foot. NEUROLOGICAL: Awake and alert. Sensation to touch grossly intact over digits of right foot. Normal speech. Procedures 04/30/16: Removal of deep hardware, open reduction internal fixation right tibia nonunion, open reduction internal fixation right fibula nonunion, iliac crest bone grafting with stem cell graft Urinary Catheter: No Vascular Central Line Catheter: No A/P Problem List: (1) Tibia/fibula fracture ICD Code: S82.209A Status: Acute Assessment and Plan Right distal tibia/fibula nonunion Status post surgical intervention with removal of deep hardware, open reduction internal fixation right tibia nonunion, open reduction internal fixation of fibula nonunion, iliac crest bone grafting with stem cell graft. Strict nonweightbearing right lower extremity for 3 months postop, elevation, maintain splint Daily dressing changes right iliac crest bone graft site Orthopedic following for management and care. New [place] splint applied on 05/31. Right hip staple removal 05/21/16 Pain control Tylenol DVT prevention Subcutaneous Lovenox Discharge Planning Patient homeless, improving with crutches. Concern for compliance if discharged. Will need clearance from orthopedics prior to discharge. Problem Qualifiers (1) Tibia/fibula fracture: Kelli Barton Jun 09, 2016 09:04
[2016-06-09] MEDS: ACETAMINOPHEN 325 MG TAB PO PRN ×2 (09:46→21:53)
[2016-06-09] MEDS: CALCIUM/VITAMIN D 250 MG/125 U TAB PO SCH ×3 (09:46→16:32)
[2016-06-09] MEDS: CHOLECALCIFEROL (VIT D3) 1000 UNIT TAB PO SCH (09:46)
[2016-06-09] MEDS: ENOXAPARIN SODIUM 30 MG/0.3 ML SYRINGE SQ SCH (09:47)
[2016-06-09 20:00] VITALS: BP 135/86; PULSE 84; RESP 18; TEMP 98.5; O2SAT 97
[2016-06-09] MEDS: TEMAZEPAM 15 MG CAP PO PRN (21:52)
[2016-06-10 08:00] VITALS: BP 117/91; PULSE 74; RESP 20; TEMP 97.8; O2SAT 98
[2016-06-10] MEDS: CHOLECALCIFEROL (VIT D3) 1000 UNIT TAB PO SCH (08:28)
[2016-06-10] MEDS: ENOXAPARIN SODIUM 30 MG/0.3 ML SYRINGE SQ SCH (08:28)
[2016-06-10] MEDS: CALCIUM/VITAMIN D 250 MG/125 U TAB PO SCH ×3 (08:28→18:23)
--- NOTE | 2016-06-10 13:48 | HHI.PR ---
Subjective Remarks Patient seen in follow-up for right tib-fib fracture. No new complaints. Ambulating with crutches. Objective Vitals Vital Signs Date Time Temp Pulse Resp B/P Pulse Ox O2 Delivery O2 Flow Rate FiO2 06/10/16 08:00 97.8 74 20 117/91 98 06/09/16 22:59 18 06/09/16 20:00 98.5 84 18 135/86 97 I/O 06/09/16 06/09/16 06/09/16 06/10/16 06/10/16 06/10/16 07:00 15:00 23:00 07:00 15:00 23:00 Intake Total 520 ml 200 ml Balance 520 ml 200 ml Intake Oral 520 ml 200 ml # Voids 1 3 2 1 # Bowel Movements 0 0 0 Objective Remarks GENERAL: This is a well-nourished, well-developed patient, in no apparent distress. CARDIOVASCULAR: Regular rate and rhythm without murmurs, gallops, or rubs. RESPIRATORY: Clear to auscultation. Breath sounds equal bilaterally. No wheezes , rales, or rhonchi. GASTROINTESTINAL: Abdomen soft, non-tender, nondistended. Normal active bowel sounds MUSCULOSKELETAL: Right tib-fib splinting and dressing, other 3 Extremities without clubbing, cyanosis, or edema. NEURO: Alert & Oriented x4 to person, place, time, situation. Moves all ext x4 Procedures 04/30/16: Removal of deep hardware, open reduction internal fixation right tibia nonunion, open reduction internal fixation right fibula nonunion, iliac crest bone grafting with stem cell graft A/P Problem List: (1) Tibia/fibula fracture ICD Code: S82.209A Status: Acute Plan: Strict nonweightbearing right lower extremity is for 3 months postop. Continue support with crutches, continue Tylenol as needed Continue daily dressing changes to right iliac bone graft Assessment and Plan LMWH Discharge Planning Patient unsafe discharge is a homeless status (lives in the [facility]) he will need to be more independent prior to discharge Problem Qualifiers (1) Tibia/fibula fracture: Amy Santana MD Jun 10, 2016 13:48
[2016-06-10] MEDS: ACETAMINOPHEN 325 MG TAB PO PRN (18:23)
[2016-06-10 20:00] VITALS: BP 123/78; PULSE 72; RESP 20; TEMP 97; O2SAT 99
[2016-06-10] MEDS: TEMAZEPAM 15 MG CAP PO PRN (21:59)
[2016-06-11 08:00] VITALS: BP 131/80; PULSE 72; RESP 18; TEMP 97.6; O2SAT 100
[2016-06-11] MEDS: CALCIUM/VITAMIN D 250 MG/125 U TAB PO SCH ×3 (08:40→16:43)
[2016-06-11] MEDS: CHOLECALCIFEROL (VIT D3) 1000 UNIT TAB PO SCH (08:40)
[2016-06-11] MEDS: ENOXAPARIN SODIUM 30 MG/0.3 ML SYRINGE SQ SCH (08:42)
--- NOTE | 2016-06-11 08:57 | HHI.PR ---
Subjective Remarks Follow-up for ORIF R lower extremity fracture. No acute complaints. No change in clinical status. Objective Vitals Vital Signs Date Time Temp Pulse Resp B/P Pulse Ox O2 Delivery O2 Flow Rate FiO2 06/10/16 20:00 97.0 72 20 123/78 99 I/O 06/10/16 06/10/16 06/10/16 06/11/16 06/11/16 06/11/16 07:00 15:00 23:00 07:00 15:00 23:00 Intake Total 200 ml 830 ml Balance 200 ml 830 ml Intake Oral 200 ml 830 ml # Voids 1 2 1 # Bowel Movements 0 0 Imaging Last Impressions Ankle X-Ray 05/28/16 0000 Signed Impressions: Service Date/Time: April 19:45 - CONCLUSION: Healing distal tibia and fibula fractures status post screw and plate fixation, near-anatomic alignment. Alphonso Cody MD Objective Remarks GENERAL: Well-nourished, well-developed patient in no apparent distress. CARDIOVASCULAR: Regular rate and rhythm. RESPIRATORY: No accessory muscle use. CTAB. MUSCULOSKELETAL: Splint right lower extremity. Moves toes of right foot. Capillary refill normal in digits of right foot. NEUROLOGICAL: Awake and alert. Sensation to touch grossly intact over digits of right foot. Normal speech. Procedures 04/30/16: Removal of deep hardware, open reduction internal fixation right tibia nonunion, open reduction internal fixation right fibula nonunion, iliac crest bone grafting with stem cell graft Urinary Catheter: No Vascular Central Line Catheter: No A/P Problem List: (1) Tibia/fibula fracture ICD Code: S82.209A Status: Acute Assessment and Plan Right distal tibia/fibula nonunion Status post surgical intervention with removal of deep hardware, open reduction internal fixation right tibia nonunion, open reduction internal fixation of fibula nonunion, iliac crest bone grafting with stem cell graft. Strict nonweightbearing right lower extremity for 3 months postop, elevation, maintain splint Daily dressing changes right iliac crest bone graft site Orthopedic following for management and care. New [place] splint applied on 05/31. Right hip staple removal 05/21/16 Pain control Tylenol DVT prevention Subcutaneous Lovenox Discharge Planning Patient homeless, improving with crutches. Concern for compliance if discharged. Will need clearance from orthopedics prior to discharge. Problem Qualifiers (1) Tibia/fibula fracture: Kelli Barton Jun 11, 2016 08:57
[2016-06-11] MEDS: ERGOCALCIFEROL (VIT D2) 50,000 UNIT CAP PO SCH (12:10)
[2016-06-11] MEDS: ACETAMINOPHEN 325 MG TAB PO PRN ×2 (16:43→22:08)
[2016-06-11 20:00] VITALS: BP 119/87; PULSE 79; RESP 20; TEMP 96.3; O2SAT 96
[2016-06-11] MEDS: TEMAZEPAM 15 MG CAP PO PRN (22:06)
[2016-06-12 08:00] VITALS: BP 127/97; PULSE 77; RESP 18; TEMP 97.9; O2SAT 98
[2016-06-12] MEDS: ACETAMINOPHEN 325 MG TAB PO PRN ×2 (08:25→21:27)
[2016-06-12] MEDS: CALCIUM/VITAMIN D 250 MG/125 U TAB PO SCH ×3 (08:25→16:47)
[2016-06-12] MEDS: CHOLECALCIFEROL (VIT D3) 1000 UNIT TAB PO SCH (08:25)
[2016-06-12] MEDS: ENOXAPARIN SODIUM 30 MG/0.3 ML SYRINGE SQ SCH (08:26)
--- NOTE | 2016-06-12 12:11 | HHI.PR ---
Subjective Remarks Follow-up for ORIF R lower extremity fracture. No acute complaints. No change in clinical status. Objective Vitals Vital Signs Date Time Temp Pulse Resp B/P Pulse Ox O2 Delivery O2 Flow Rate FiO2 06/12/16 09:28 12 06/12/16 08:00 97.9 77 18 127/97 98 06/11/16 20:00 96.3 79 20 119/87 96 I/O 06/11/16 06/11/16 06/11/16 06/12/16 06/12/16 06/12/16 07:00 15:00 23:00 07:00 15:00 23:00 Intake Total 480 ml 240 ml Balance 480 ml 240 ml Intake Oral 480 ml 240 ml # Voids 2 2 1 # Bowel Movements 0 0 Objective Remarks GENERAL: Well-nourished, well-developed patient in no apparent distress. CARDIOVASCULAR: Regular rate and rhythm. RESPIRATORY: No accessory muscle use. CTAB. MUSCULOSKELETAL: Splint right lower extremity. Moves toes of right foot. Capillary refill normal in digits of right foot. NEUROLOGICAL: Awake and alert. Sensation to touch grossly intact over digits of right foot. Normal speech. Procedures 04/30/16: Removal of deep hardware, open reduction internal fixation right tibia nonunion, open reduction internal fixation right fibula nonunion, iliac crest bone grafting with stem cell graft Urinary Catheter: No Vascular Central Line Catheter: No A/P Problem List: (1) Tibia/fibula fracture ICD Code: S82.209A Status: Acute Assessment and Plan Right distal tibia/fibula nonunion Status post surgical intervention with removal of deep hardware, open reduction internal fixation right tibia nonunion, open reduction internal fixation of fibula nonunion, iliac crest bone grafting with stem cell graft. Strict nonweightbearing right lower extremity for 3 months postop, elevation, maintain splint Daily dressing changes right iliac crest bone graft site Orthopedic following for management and care. New [place] splint applied on 05/31. Right hip staple removal 05/21/16 Pain control Tylenol DVT prevention Subcutaneous Lovenox Discharge Planning Patient homeless, improving with crutches. Concern for compliance if discharged. Will need clearance from orthopedics prior to discharge. Problem Qualifiers (1) Tibia/fibula fracture: Kelli Barton Jun 12, 2016 12:11
[2016-06-12 20:00] VITALS: BP 147/92; PULSE 86; RESP 18; TEMP 96.1; O2SAT 98
[2016-06-13] MEDS: CALCIUM/VITAMIN D 250 MG/125 U TAB PO SCH ×3 (07:48→18:05)
[2016-06-13] MEDS: CHOLECALCIFEROL (VIT D3) 1000 UNIT TAB PO SCH (07:48)
[2016-06-13 08:00] VITALS: BP 113/81; PULSE 71; RESP 16; TEMP 97.1; O2SAT 98
--- NOTE | 2016-06-13 09:52 | HHI.PR ---
Subjective Remarks No acute complaints. No change in clinical status. Objective Vitals Vital Signs Date Time Temp Pulse Resp B/P Pulse Ox O2 Delivery O2 Flow Rate FiO2 06/13/16 08:00 97.1 71 16 113/81 98 06/12/16 22:27 18 06/12/16 20:00 96.1 86 18 147/92 98 I/O 06/12/16 06/12/16 06/12/16 06/13/16 06/13/16 06/13/16 07:00 15:00 23:00 07:00 15:00 23:00 Intake Total 240 ml 480 ml 480 ml 480 ml Balance 240 ml 480 ml 480 ml 480 ml Intake Oral 240 ml 480 ml 480 ml 480 ml IV Total 0 ml # Voids 2 5 3 1 # Bowel Movements 0 1 0 0 Objective Remarks GENERAL: Well-nourished, well-developed patient in no apparent distress. CARDIOVASCULAR: Regular rate and rhythm. RESPIRATORY: No accessory muscle use. CTAB. MUSCULOSKELETAL: Splint right lower extremity. Moves toes of right foot. Capillary refill normal in digits of right foot. NEUROLOGICAL: Awake and alert. Sensation to touch grossly intact over digits of right foot. Normal speech. Procedures 04/30/16: Removal of deep hardware, open reduction internal fixation right tibia nonunion, open reduction internal fixation right fibula nonunion, iliac crest bone grafting with stem cell graft Urinary Catheter: No Vascular Central Line Catheter: No A/P Problem List: (1) Tibia/fibula fracture ICD Code: S82.209A Status: Acute Assessment and Plan Right distal tibia/fibula nonunion Status post surgical intervention with removal of deep hardware, open reduction internal fixation right tibia nonunion, open reduction internal fixation of fibula nonunion, iliac crest bone grafting with stem cell graft. Strict nonweightbearing right lower extremity for 3 months postop, elevation, maintain splint Daily dressing changes right iliac crest bone graft site Orthopedic following for management and care. New [place] splint applied on 05/31. Right hip staple removal 05/21/16 Pain control Tylenol DVT prevention Subcutaneous Lovenox Discharge Planning Patient homeless, improving with crutches. Concern for compliance if discharged. Will need clearance from orthopedics prior to discharge. Problem Qualifiers (1) Tibia/fibula fracture: Kelli Barton Jun 13, 2016 09:51
[2016-06-13] MEDS: ENOXAPARIN SODIUM 30 MG/0.3 ML SYRINGE SQ SCH (11:46)
[2016-06-13] MEDS: ACETAMINOPHEN 325 MG TAB PO PRN (18:07)
[2016-06-13 21:05] VITALS: BP 136/92; PULSE 82; RESP 16; TEMP 97.8; O2SAT 96
[2016-06-14 08:00] VITALS: BP 133/87; PULSE 68; RESP 18; TEMP 97.7; O2SAT 97
[2016-06-14] MEDS: ACETAMINOPHEN 325 MG TAB PO PRN (08:14)
[2016-06-14] MEDS: ENOXAPARIN SODIUM 30 MG/0.3 ML SYRINGE SQ SCH (08:15)
[2016-06-14] MEDS: CHOLECALCIFEROL (VIT D3) 1000 UNIT TAB PO SCH (08:15)
[2016-06-14] MEDS: CALCIUM/VITAMIN D 250 MG/125 U TAB PO SCH ×3 (08:15→17:02)
--- NOTE | 2016-06-14 16:58 | HHI.PR ---
Subjective Remarks Patient seen in follow-up for continued management of orthopedic issues. No complaints. Resting well. Objective Vitals Vital Signs Date Time Temp Pulse Resp B/P Pulse Ox O2 Delivery O2 Flow Rate FiO2 06/14/16 09:14 12 06/14/16 08:00 97.7 68 18 133/87 97 06/13/16 21:05 97.8 82 16 136/92 96 I/O 06/13/16 06/13/16 06/13/16 06/14/16 06/14/16 06/14/16 07:00 15:00 23:00 07:00 15:00 23:00 Intake Total 480 ml 600 ml Balance 480 ml 600 ml Intake Oral 480 ml 600 ml # Voids 1 3 1 3 1 # Bowel Movements 0 1 Objective Remarks GENERAL: This is a well-nourished, well-developed patient, in no apparent distress. CARDIOVASCULAR: Regular rate and rhythm without murmurs, gallops, or rubs. RESPIRATORY: Clear to auscultation. Breath sounds equal bilaterally. No wheezes , rales, or rhonchi. GASTROINTESTINAL: Abdomen soft, non-tender, nondistended. Normal active bowel sounds MUSCULOSKELETAL: Right tib-fib splinting and dressing, other 3 Extremities without clubbing, cyanosis, or edema. NEURO: Alert & Oriented x4 to person, place, time, situation. Moves all ext x4 Procedures 04/30/16: Removal of deep hardware, open reduction internal fixation right tibia nonunion, open reduction internal fixation right fibula nonunion, iliac crest bone grafting with stem cell graft A/P Problem List: (1) Tibia/fibula fracture ICD Code: S82.209A Status: Acute Assessment and Plan LMWH Discontinued ensure Discharge Planning Patient unsafe discharge is a homeless status (lives in the [facility]) he will need to be more independent prior to discharge Problem Qualifiers (1) Tibia/fibula fracture: Amy Santana MD Jun 14, 2016 16:58
[2016-06-14 21:12] VITALS: BP 130/98; PULSE 80; RESP 20; TEMP 96.3; O2SAT 98
[2016-06-15] MEDS: ACETAMINOPHEN 325 MG TAB PO PRN ×3 (05:47→22:25)
[2016-06-15 08:00] VITALS: BP 124/90; PULSE 77; RESP 20; TEMP 98.2; O2SAT 98
[2016-06-15] MEDS: CALCIUM/VITAMIN D 250 MG/125 U TAB PO SCH ×3 (09:50→16:41)
[2016-06-15] MEDS: ENOXAPARIN SODIUM 30 MG/0.3 ML SYRINGE SQ SCH (09:50)
[2016-06-15] MEDS: CHOLECALCIFEROL (VIT D3) 1000 UNIT TAB PO SCH (09:50)
--- NOTE | 2016-06-15 10:05 | HHI.PR ---
Subjective Remarks No acute complaints. No change in clinical status. Objective Vitals Vital Signs Date Time Temp Pulse Resp B/P Pulse Ox O2 Delivery O2 Flow Rate FiO2 06/15/16 08:00 98.2 77 20 124/90 98 06/15/16 07:09 18 06/14/16 21:12 96.3 80 20 130/98 98 I/O 06/14/16 06/14/16 06/14/16 06/15/16 06/15/16 06/15/16 07:00 15:00 23:00 07:00 15:00 23:00 # Voids 3 1 5 Objective Remarks GENERAL: Well-nourished, well-developed patient in no apparent distress. CARDIOVASCULAR: Regular rate and rhythm. RESPIRATORY: No accessory muscle use. CTAB. GASTROINTESTINAL: Abdomen soft, nontender, nondistended. MUSCULOSKELETAL: Splint right lower extremity. Moves toes of right foot. Capillary refill normal in digits of right foot. NEUROLOGICAL: Awake and alert. Sensation to touch grossly intact over digits of right foot. Normal speech. Procedures 04/30/16: Removal of deep hardware, open reduction internal fixation right tibia nonunion, open reduction internal fixation right fibula nonunion, iliac crest bone grafting with stem cell graft Urinary Catheter: No Vascular Central Line Catheter: No A/P Problem List: (1) Tibia/fibula fracture ICD Code: S82.209A Status: Acute Assessment and Plan Right distal tibia/fibula nonunion Status post surgical intervention with removal of deep hardware, open reduction internal fixation right tibia nonunion, open reduction internal fixation of fibula nonunion, iliac crest bone grafting with stem cell graft. Strict nonweightbearing right lower extremity for 3 months postop, elevation, maintain splint Daily dressing changes right iliac crest bone graft site Orthopedic following for management and care. New [place] splint applied on 05/31. Right hip staple removal 05/21/16 Pain control Tylenol DVT prevention Subcutaneous Lovenox Discharge Planning Patient homeless, improving with crutches. Concern for compliance if discharged. Will need clearance from orthopedics prior to discharge. Problem Qualifiers (1) Tibia/fibula fracture: Kelli Barton Jun 15, 2016 10:04
[2016-06-15 20:00] VITALS: BP 117/83; PULSE 71; RESP 16; TEMP 97.9; O2SAT 95
[2016-06-15] MEDS: TEMAZEPAM 15 MG CAP PO PRN (22:25)
[2016-06-16 08:00] VITALS: BP 125/91; PULSE 73; RESP 18; TEMP 96.3; O2SAT 97
[2016-06-16] MEDS: CALCIUM/VITAMIN D 250 MG/125 U TAB PO SCH ×3 (08:24→17:34)
[2016-06-16] MEDS: CHOLECALCIFEROL (VIT D3) 1000 UNIT TAB PO SCH (08:24)
--- NOTE | 2016-06-16 09:25 | HHI.PR ---
Subjective Remarks Patient seen and examined today. Patient denies any new complaints. No change in clinical status. Objective Vitals Vital Signs Date Time Temp Pulse Resp B/P Pulse Ox O2 Delivery O2 Flow Rate FiO2 06/16/16 08:00 96.3 73 18 125/91 97 06/15/16 20:00 97.9 71 16 117/83 95 06/15/16 14:30 14 I/O 06/15/16 06/15/16 06/15/16 06/16/16 06/16/16 06/16/16 07:00 15:00 23:00 07:00 15:00 23:00 Intake Total 1000 ml 700 ml 900 ml Balance 1000 ml 700 ml 900 ml Intake Oral 1000 ml 700 ml 900 ml # Voids 5 4 4 4 # Bowel Movements 1 Objective Remarks GENERAL: Well-developed, well-nourished, in no acute distress. alert and orientated HEENT: Head is normocephalic without any lesions or masses noted. Facial features are symmetric. Eyes: Extraocular muscles are intact. Conjunctivae were clear. NECK: Trachea midline no deviation. CARDIAC: Regular rhythm, regular rate. S1/S2 are heard. No murmurs gallops or rubs. LUNGS: Clear to auscultation bilaterally. No wheeze, rhonchi or rales. No use of accessory muscles on inspiration or expiration. ABDOMEN: Soft, nontender. Nondistended. Bowel sounds heard in all 4 quadrants. No organomegaly or masses. Negative rebound, negative guarding EXTREMITIES: No edema,. No cyanosis or clubbing. Right lower extremity is in splint NEUROLOGY: Mood and affect appear appropriate. Cranial nerves II through XII grossly intact. Moving all extremities, speech is clear Procedures 04/30/16: Removal of deep hardware, open reduction internal fixation right tibia nonunion, open reduction internal fixation right fibula nonunion, iliac crest bone grafting with stem cell graft Urinary Catheter: No Vascular Central Line Catheter: No A/P Assessment and Plan Right distal tibia/fibula nonunion Status postsurgical intervention with removal of deep hardware, open reduction internal fixation right tibia nonunion, open reduction internal fixation of fibula nonunion, iliac crest bone grafting with stem cell graft Strict nonweightbearing right lower extremity, elevation, maintain splint 3 months from date of surgery [facility]30[facility] following for management and care Removed right hip petros 05/21/16 Pain control: Tylenol every 6 hours as needed DVT prevention Subcutaneous Lovenox Discharge Planning Case management managing discharge planning 06/12/16 PATIENT POST OP 04/30/17 WITH NWB STATUS POST 3 MONTHS SURGERY. WHICH WILL BE JULY. THOUGH PATIENT DOING WELL WITH CRUTCHES ORTHO NEEDS TO CLEAR AND THE CONCERN IS PATIENT BEING HOMELESS THERE IS NOT A GAURENTEE HE WILL COMPLY CAUSING RE-INJURGY AND CAUSE FOR WORSE DAMAGE THEN MORE SURGICAL INTERVENTION WILL BE NEEDED. NO ASSISTANCE AVAILABLE NO INSURANCE TO PLACE WALLY BROOKE LPN/Rufino Fong Jun 16, 2016 09:25
[2016-06-16] MEDS: ENOXAPARIN SODIUM 30 MG/0.3 ML SYRINGE SQ SCH (11:54)
--- NOTE | 2016-06-16 17:50 | RADHPO ---
EXAM DATE/TIME: 06/16/2016 15:34 [place] COMPARISON: ANKLE RIGHT COMPLETE ([id number]), May 28, 2016, 19:45. INDICATIONS : Evaluate right ankle status post op. MEDICAL HISTORY : None. SURGICAL HISTORY : ORIF right ankle hardware removal and revision. ENCOUNTER: Subsequent ACUITY: 1 month PAIN SCORE: 0/10 LOCATION: Right ankle. FINDINGS: Three views of the ankle have been obtained. The patient is in a cast. There is a linwood gical plate along the anterior lateral aspect of the distal tibia for an oblique distal tibial fractu re. The hardware is well placed. There is also as shorter plate seen along the lateral distal fibul a for a distal fibula fracture. The fractures are well aligned. The fracture lines can still be see n. Little change has occurred when compared to the prior exam from 05/28/16. CONCLUSION: Surgical hardware in good position. Alphonso Napier MD on June 16, 2016 at 17:32 Board Certified Radiologist. This report was verified electronically.
[2016-06-16 20:00] VITALS: BP 136/93; PULSE 85; RESP 16; TEMP 97.1; O2SAT 98
[2016-06-16] MEDS: ACETAMINOPHEN 325 MG TAB PO PRN (22:10)
[2016-06-16] MEDS: TEMAZEPAM 15 MG CAP PO PRN (22:10)
[2016-06-17 08:00] VITALS: BP 112/81; PULSE 68; RESP 17; TEMP 96.3; O2SAT 97
--- NOTE | 2016-06-17 08:34 | HHI.PR ---
Subjective Remarks Patient seen and examined today. Patient denies any new complaints. Case management for discharge planning Objective Vitals Vital Signs Date Time Temp Pulse Resp B/P Pulse Ox O2 Delivery O2 Flow Rate FiO2 06/16/16 20:00 97.1 85 16 136/93 98 I/O 06/16/16 06/16/16 06/16/16 06/17/16 06/17/16 06/17/16 07:00 15:00 23:00 07:00 15:00 23:00 Intake Total 900 ml 480 ml 480 ml 480 ml Balance 900 ml 480 ml 480 ml 480 ml Intake Oral 900 ml 480 ml 480 ml 480 ml # Voids 4 3 2 2 # Bowel Movements 1 0 0 Objective Remarks GENERAL: Well-developed, well-nourished, in no acute distress. alert and orientated HEENT: Head is normocephalic without any lesions or masses noted. Facial features are symmetric. Eyes: Extraocular muscles are intact. Conjunctivae were clear. NECK: Trachea midline no deviation. CARDIAC: Regular rhythm, regular rate. S1/S2 are heard. No murmurs gallops or rubs. LUNGS: Clear to auscultation bilaterally. No wheeze, rhonchi or rales. No use of accessory muscles on inspiration or expiration. ABDOMEN: Soft, nontender. Nondistended. Bowel sounds heard in all 4 quadrants. No organomegaly or masses. Negative rebound, negative guarding EXTREMITIES: No edema,. No cyanosis or clubbing. Right lower extremity is in splint NEUROLOGY: Mood and affect appear appropriate. Cranial nerves II through XII grossly intact. Moving all extremities, speech is clear Procedures 04/30/16: Removal of deep hardware, open reduction internal fixation right tibia nonunion, open reduction internal fixation right fibula nonunion, iliac crest bone grafting with stem cell graft Urinary Catheter: No Vascular Central Line Catheter: No A/P Assessment and Plan Right distal tibia/fibula nonunion Status postsurgical intervention with removal of deep hardware, open reduction internal fixation right tibia nonunion, open reduction internal fixation of fibula nonunion, iliac crest bone grafting with stem cell graft Strict nonweightbearing right lower extremity, elevation, maintain splint 3 months from date of surgery 04/30/16 [place] splint on 05/29/16 Orthopedic following for management and care Removed right hip petros 05/21/16 Pain control: Tylenol every 6 hours as needed DVT prevention Subcutaneous Lovenox Discharge Planning Case management managing discharge planning Rufino Campos Jun 17, 2016 08:34
[2016-06-17] MEDS: CALCIUM/VITAMIN D 250 MG/125 U TAB PO SCH ×3 (08:54→16:54)
[2016-06-17] MEDS: ENOXAPARIN SODIUM 30 MG/0.3 ML SYRINGE SQ SCH (08:54)
[2016-06-17] MEDS: CHOLECALCIFEROL (VIT D3) 1000 UNIT TAB PO SCH (08:54)
--- NOTE | 2016-06-17 12:36 | PD.ORT.PN ---
Subjective Subjective Remarks s/p ORIF right distal tibia fx doing well. out of bed with crutches. no pain. Objective Vitals Vital Signs Date Time Temp Pulse Resp B/P Pulse Ox O2 Delivery O2 Flow Rate FiO2 06/17/16 08:00 96.3 68 17 112/81 97 06/16/16 20:00 97.1 85 16 136/93 98 I/O 06/16/16 06/16/16 06/16/16 06/17/16 06/17/16 06/17/16 07:00 15:00 23:00 07:00 15:00 23:00 Intake Total 900 ml 480 ml 480 ml 480 ml Balance 900 ml 480 ml 480 ml 480 ml Intake Oral 900 ml 480 ml 480 ml 480 ml # Voids 4 3 2 2 # Bowel Movements 1 0 0 Imaging Last 72 hours Impressions Ankle X-Ray 04/30/16 0000 Signed Impressions: Service Date/Time: April 09:54 - CONCLUSION: Distal fibular and tibial hardware appears to be in good position status post revision. Chente Spain MD Objective Remarks RLE: +short leg splint. good motion of knee. no pain. NVI Assessment & Plan Assessment and Plan 1) Revision right tibial pilon fracture with removal of hardware and iliac crest bone graft and open reduction internal fixation 04/30/16 Strict nonweightbearing right lower extremity 3 months postop [facility] to [place] splint today and place in fracture boot PT to work on stretching of ankle NWB boot at all times except for PT and showers. needs to sleep in boot Jerry Saldana Jun 17, 2016 12:36
[2016-06-17] MEDS: ACETAMINOPHEN 325 MG TAB PO PRN ×2 (13:58→22:12)
[2016-06-17 20:00] VITALS: BP 133/84; PULSE 69; RESP 16; TEMP 96.8; O2SAT 96
[2016-06-17] MEDS: TEMAZEPAM 15 MG CAP PO PRN (22:12)
[2016-06-18 08:00] VITALS: BP 131/86; PULSE 68; RESP 16; TEMP 97.2; O2SAT 98
[2016-06-18] MEDS: CALCIUM/VITAMIN D 250 MG/125 U TAB PO SCH ×3 (08:08→17:17)
[2016-06-18] MEDS: CHOLECALCIFEROL (VIT D3) 1000 UNIT TAB PO SCH (08:08)
[2016-06-18] MEDS: ENOXAPARIN SODIUM 30 MG/0.3 ML SYRINGE SQ SCH (08:08)
[2016-06-18] MEDS: ACETAMINOPHEN 325 MG TAB PO PRN ×2 (08:08→21:15)
--- NOTE | 2016-06-18 09:31 | HHI.PR ---
Subjective Remarks Patient seen and examined today. Patient denies any new complaints. No change in clinical status. Awaiting case management for discharge planning Objective Vitals Vital Signs Date Time Temp Pulse Resp B/P Pulse Ox O2 Delivery O2 Flow Rate FiO2 06/18/16 09:15 18 06/18/16 08:00 97.2 68 16 131/86 98 06/17/16 20:00 96.8 69 16 133/84 96 I/O 06/17/16 06/17/16 06/17/16 06/18/16 06/18/16 06/18/16 07:00 15:00 23:00 07:00 15:00 23:00 Intake Total 480 ml 960 ml 600 ml 480 ml Balance 480 ml 960 ml 600 ml 480 ml Intake Oral 480 ml 960 ml 600 ml 480 ml # Voids 2 3 2 1 # Bowel Movements 0 0 0 0 Objective Remarks GENERAL: Well-developed, well-nourished, in no acute distress. alert and orientated HEENT: Head is normocephalic without any lesions or masses noted. Facial features are symmetric. Eyes: Extraocular muscles are intact. Conjunctivae were clear. NECK: Trachea midline no deviation. CARDIAC: Regular rhythm, regular rate. S1/S2 are heard. No murmurs gallops or rubs. LUNGS: Clear to auscultation bilaterally. No wheeze, rhonchi or rales. No use of accessory muscles on inspiration or expiration. ABDOMEN: Soft, nontender. Nondistended. Bowel sounds heard in all 4 quadrants. No organomegaly or masses. Negative rebound, negative guarding EXTREMITIES: No edema,. No cyanosis or clubbing. Right lower extremity is in splint NEUROLOGY: Mood and affect appear appropriate. Cranial nerves II through XII grossly intact. Moving all extremities, speech is clear Procedures 04/30/16: Removal of deep hardware, open reduction internal fixation right tibia nonunion, open reduction internal fixation right fibula nonunion, iliac crest bone grafting with stem cell graft Urinary Catheter: No Vascular Central Line Catheter: No A/P Assessment and Plan Right distal tibia/fibula nonunion Status postsurgical intervention with removal of deep hardware, open reduction internal fixation right tibia nonunion, open reduction internal fixation of fibula nonunion, iliac crest bone grafting with stem cell graft Strict nonweightbearing right lower extremity, 3 months from date of surgery Orthopedic clinic consulted to discontinue splint and place patient in fracture boot Orthopedic following for management and care, last seen 06/17/16 Removed right hip petros 05/21/16 Pain control: Tylenol every 6 hours as needed DVT prevention Subcutaneous Lovenox Discharge Planning Case management managing discharge planning Rufino Campos Jun 18, 2016 09:31
[2016-06-18] MEDS: ERGOCALCIFEROL (VIT D2) 50,000 UNIT CAP PO SCH (11:53)
[2016-06-18 20:00] VITALS: BP 133/85; PULSE 89; RESP 18; TEMP 96.8; O2SAT 97
[2016-06-19] MEDS: ACETAMINOPHEN 325 MG TAB PO PRN ×2 (07:20→16:48)
[2016-06-19 08:00] VITALS: BP 119/88; PULSE 87; RESP 18; TEMP 98.2; O2SAT 97
--- NOTE | 2016-06-19 08:35 | HHI.PR ---
Subjective Remarks Patient seen and examined today. Patient denies any new complaints. No change in clinical status. Awaiting case management for discharge planning Objective Vitals Vital Signs Date Time Temp Pulse Resp B/P Pulse Ox O2 Delivery O2 Flow Rate FiO2 06/18/16 22:15 15 06/18/16 20:00 96.8 89 18 133/85 97 I/O 06/18/16 06/18/16 06/18/16 06/19/16 06/19/16 06/19/16 07:00 15:00 23:00 07:00 15:00 23:00 Intake Total 480 ml 510 ml 100 ml 240 ml Balance 480 ml 510 ml 100 ml 240 ml Intake Oral 480 ml 510 ml 100 ml 240 ml # Voids 1 3 2 1 # Bowel Movements 0 1 0 Objective Remarks GENERAL: Well-developed, well-nourished, in no acute distress. alert and orientated HEENT: Head is normocephalic without any lesions or masses noted. Facial features are symmetric. Eyes: Extraocular muscles are intact. Conjunctivae were clear. NECK: Trachea midline no deviation. CARDIAC: Regular rhythm, regular rate. S1/S2 are heard. No murmurs gallops or rubs. LUNGS: Clear to auscultation bilaterally. No wheeze, rhonchi or rales. No use of accessory muscles on inspiration or expiration. ABDOMEN: Soft, nontender. Nondistended. Bowel sounds heard in all 4 quadrants. No organomegaly or masses. Negative rebound, negative guarding EXTREMITIES: No edema,. No cyanosis or clubbing. Right lower extremity is in splint NEUROLOGY: Mood and affect appear appropriate. Cranial nerves II through XII grossly intact. Moving all extremities, speech is clear Procedures 04/30/16: Removal of deep hardware, open reduction internal fixation right tibia nonunion, open reduction internal fixation right fibula nonunion, iliac crest bone grafting with stem cell graft Urinary Catheter: No Vascular Central Line Catheter: No A/P Assessment and Plan Right distal tibia/fibula nonunion Status postsurgical intervention with removal of deep hardware, open reduction internal fixation right tibia nonunion, open reduction internal fixation of fibula nonunion, iliac crest bone grafting with stem cell graft Strict nonweightbearing right lower extremity, 3 months from date of surgery patient in fracture boot Orthopedic following for management and care, last seen 06/17/16 Removed right hip petros 05/21/16 Pain control: Tylenol every 6 hours as needed DVT prevention Subcutaneous Lovenox Discharge Planning Case management managing discharge planning. Case management pursuing homeless [facility] for discharge planning. They will need to clear with orthopedist if they feel that that would be safe for this patient's discharge concerning the patient has already failed outpatient management previously and had undergo surgical intervention again due to noncompliance in outpatient setting Rufino Campos Jun 19, 2016 08:35
[2016-06-19] MEDS: CHOLECALCIFEROL (VIT D3) 1000 UNIT TAB PO SCH (09:04)
[2016-06-19] MEDS: ENOXAPARIN SODIUM 30 MG/0.3 ML SYRINGE SQ SCH (09:04)
[2016-06-19] MEDS: CALCIUM/VITAMIN D 250 MG/125 U TAB PO SCH ×3 (09:04→16:48)
[2016-06-19 20:59] VITALS: BP 120/78; PULSE 79; RESP 18; TEMP 98; O2SAT 97
[2016-06-20 08:00] VITALS: BP 129/95; PULSE 79; RESP 18; TEMP 98.7; O2SAT 96
[2016-06-20] MEDS: CALCIUM/VITAMIN D 250 MG/125 U TAB PO SCH ×3 (09:29→17:26)
[2016-06-20] MEDS: ENOXAPARIN SODIUM 30 MG/0.3 ML SYRINGE SQ SCH (09:30)
[2016-06-20] MEDS: ACETAMINOPHEN 325 MG TAB PO PRN ×2 (09:30→22:26)
[2016-06-20] MEDS: CHOLECALCIFEROL (VIT D3) 1000 UNIT TAB PO SCH (09:30)
--- NOTE | 2016-06-20 10:09 | HHI.PR ---
Subjective Remarks Patient seen and examined today. Patient denies any new complaints. No change in clinical status. Awaiting case management for discharge planning. Objective Vitals Vital Signs Date Time Temp Pulse Resp B/P Pulse Ox O2 Delivery O2 Flow Rate FiO2 06/20/16 08:00 98.7 79 18 129/95 96 06/19/16 20:59 98.0 79 18 120/78 97 I/O 06/19/16 06/19/16 06/19/16 06/20/16 06/20/16 06/20/16 07:00 15:00 23:00 07:00 15:00 23:00 Intake Total 240 ml 1000 ml Balance 240 ml 1000 ml Intake Oral 240 ml 1000 ml # Voids 1 5 1 2 # Bowel Movements 0 1 0 0 Objective Remarks GENERAL: Well-developed, well-nourished, in no acute distress. alert and orientated HEENT: Head is normocephalic without any lesions or masses noted. Facial features are symmetric. Eyes: Extraocular muscles are intact. Conjunctivae were clear. NECK: Trachea midline no deviation. CARDIAC: Regular rhythm, regular rate. S1/S2 are heard. No murmurs gallops or rubs. LUNGS: Clear to auscultation bilaterally. No wheeze, rhonchi or rales. No use of accessory muscles on inspiration or expiration. ABDOMEN: Soft, nontender. Nondistended. Bowel sounds heard in all 4 quadrants. No organomegaly or masses. Negative rebound, negative guarding EXTREMITIES: No edema,. No cyanosis or clubbing. Right lower extremity is in splint NEUROLOGY: Mood and affect appear appropriate. Cranial nerves II through XII grossly intact. Moving all extremities, speech is clear Procedures 04/30/16: Removal of deep hardware, open reduction internal fixation right tibia nonunion, open reduction internal fixation right fibula nonunion, iliac crest bone grafting with stem cell graft Urinary Catheter: No Vascular Central Line Catheter: No A/P Assessment and Plan Right distal tibia/fibula nonunion Status postsurgical intervention with removal of deep hardware, open reduction internal fixation right tibia nonunion, open reduction internal fixation of fibula nonunion, iliac crest bone grafting with stem cell graft Strict nonweightbearing right lower extremity, 3 months from date of surgery patient in fracture boot Orthopedic following for management and care, last seen 06/17/16 Removed right hip petros 05/21/16 Pain control: Tylenol every 6 hours as needed DVT prevention Subcutaneous Lovenox Discharge Planning Case management managing discharge planning. [facility]. They will need to clear with orthopedist if they feel that that would be safe for this patient's discharge concerning the patient has already failed outpatient management previously and had undergo surgical intervention again due to noncompliance in outpatient setting Rufino Campos Jun 20, 2016 10:09
[2016-06-20 20:00] VITALS: BP 132/82; PULSE 72; RESP 16; TEMP 97.3; O2SAT 98
[2016-06-20] MEDS: TEMAZEPAM 15 MG CAP PO PRN (22:26)
[2016-06-21 08:00] VITALS: BP 121/84; PULSE 66; RESP 17; TEMP 96.6; O2SAT 98
[2016-06-21] MEDS: CALCIUM/VITAMIN D 250 MG/125 U TAB PO SCH ×3 (09:47→18:46)
[2016-06-21] MEDS: ENOXAPARIN SODIUM 30 MG/0.3 ML SYRINGE SQ SCH (09:48)
[2016-06-21] MEDS: CHOLECALCIFEROL (VIT D3) 1000 UNIT TAB PO SCH (09:48)
--- NOTE | 2016-06-21 09:48 | HHI.PR ---
Subjective Remarks Patient seen and examined today. Patient denies any new complaints. No change in clinical status. Awaiting case management for discharge planning Objective Vitals Vital Signs Date Time Temp Pulse Resp B/P Pulse Ox O2 Delivery O2 Flow Rate FiO2 06/21/16 08:00 96.6 66 17 121/84 98 06/20/16 20:00 97.3 72 16 132/82 98 I/O 06/20/16 06/20/16 06/20/16 06/21/16 06/21/16 06/21/16 07:00 15:00 23:00 07:00 15:00 23:00 Intake Total 600 ml 480 ml 480 ml 0 ml Balance 600 ml 480 ml 480 ml 0 ml Intake Oral 600 ml 480 ml 480 ml IV Total 0 ml # Voids 2 4 2 2 # Bowel Movements 0 1 0 0 Objective Remarks GENERAL: Well-developed, well-nourished, in no acute distress. alert and orientated HEENT: Head is normocephalic without any lesions or masses noted. Facial features are symmetric. Eyes: Extraocular muscles are intact. Conjunctivae were clear. NECK: Trachea midline no deviation. CARDIAC: Regular rhythm, regular rate. S1/S2 are heard. No murmurs gallops or rubs. LUNGS: Clear to auscultation bilaterally. No wheeze, rhonchi or rales. No use of accessory muscles on inspiration or expiration. ABDOMEN: Soft, nontender. Nondistended. Bowel sounds heard in all 4 quadrants. No organomegaly or masses. Negative rebound, negative guarding EXTREMITIES: No edema,. No cyanosis or clubbing. Right lower extremity is in splint NEUROLOGY: Mood and affect appear appropriate. Cranial nerves II through XII grossly intact. Moving all extremities, speech is clear Procedures 04/30/16: Removal of deep hardware, open reduction internal fixation right tibia nonunion, open reduction internal fixation right fibula nonunion, iliac crest bone grafting with stem cell graft Urinary Catheter: No Vascular Central Line Catheter: No A/P Assessment and Plan Right distal tibia/fibula nonunion Status postsurgical intervention with removal of deep hardware, open reduction internal fixation right tibia nonunion, open reduction internal fixation of fibula nonunion, iliac crest bone grafting with stem cell graft Strict nonweightbearing right lower extremity, 3 months from date of surgery patient in fracture boot Orthopedic following for management and care, last seen 06/17/16 Removed right hip petros 05/21/16 Pain control: Tylenol every 6 hours as needed DVT prevention Subcutaneous Lovenox Discharge Planning Case management managing discharge planning. Case management pursuing homeless alf for discharge planning. They will need to clear with orthopedist if they feel that that would be safe for this patient's discharge concerning the patient has already failed outpatient management previously and had undergo surgical intervention again due to noncompliance in outpatient setting Rufino Campos Jun 21, 2016 09:48
[2016-06-21] MEDS: ACETAMINOPHEN 325 MG TAB PO PRN ×2 (15:53→22:42)
[2016-06-21 20:00] VITALS: BP 108/80; PULSE 77; RESP 16; TEMP 97; O2SAT 98
[2016-06-22 08:00] VITALS: BP 135/96; PULSE 79; RESP 20; TEMP 96.7; O2SAT 20
[2016-06-22] MEDS: CALCIUM/VITAMIN D 250 MG/125 U TAB PO SCH ×3 (08:42→16:34)
[2016-06-22] MEDS: ENOXAPARIN SODIUM 30 MG/0.3 ML SYRINGE SQ SCH (08:43)
[2016-06-22] MEDS: ACETAMINOPHEN 325 MG TAB PO PRN ×2 (08:44→16:33)
[2016-06-22] MEDS: CHOLECALCIFEROL (VIT D3) 1000 UNIT TAB PO SCH (08:45)
--- NOTE | 2016-06-22 11:56 | HHI.PR ---
Subjective Remarks Patient seen and examined today. Patient has any new complaints. No change in clinical status. Awaiting case management for discharge planning Objective Vitals Vital Signs Date Time Temp Pulse Resp B/P Pulse Ox O2 Delivery O2 Flow Rate FiO2 06/22/16 09:44 14 06/22/16 08:00 96.7 79 20 135/96 20 06/21/16 20:00 97.0 77 16 108/80 98 I/O 06/21/16 06/21/16 06/21/16 06/22/16 06/22/16 06/22/16 07:00 15:00 23:00 07:00 15:00 23:00 Intake Total 480 ml 0 ml 480 ml 480 ml Balance 480 ml 0 ml 480 ml 480 ml Intake Oral 480 ml 480 ml 480 ml IV Total 0 ml # Voids 2 2 2 # Bowel Movements 0 0 0 Objective Remarks GENERAL: Well-developed, well-nourished, in no acute distress. alert and orientated HEENT: Head is normocephalic without any lesions or masses noted. Facial features are symmetric. Eyes: Extraocular muscles are intact. Conjunctivae were clear. NECK: Trachea midline no deviation. CARDIAC: Regular rhythm, regular rate. S1/S2 are heard. No murmurs gallops or rubs. LUNGS: Clear to auscultation bilaterally. No wheeze, rhonchi or rales. No use of accessory muscles on inspiration or expiration. ABDOMEN: Soft, nontender. Nondistended. Bowel sounds heard in all 4 quadrants. No organomegaly or masses. Negative rebound, negative guarding EXTREMITIES: No edema,. No cyanosis or clubbing. Right lower extremity is in splint NEUROLOGY: Mood and affect appear appropriate. Cranial nerves II through XII grossly intact. Moving all extremities, speech is clear Procedures 04/30/16: Removal of deep hardware, open reduction internal fixation right tibia nonunion, open reduction internal fixation right fibula nonunion, iliac crest bone grafting with stem cell graft Urinary Catheter: No Vascular Central Line Catheter: No A/P Assessment and Plan Right distal tibia/fibula nonunion Status postsurgical intervention with removal of deep hardware, open reduction internal fixation right tibia nonunion, open reduction internal fixation of fibula nonunion, iliac crest bone grafting with stem cell graft Strict nonweightbearing right lower extremity, 3 months from date of surgery patient in fracture boot Orthopedic following for management and care, last seen 06/17/16 Removed right hip petros 05/21/16 Pain control: Tylenol every 6 hours as needed DVT prevention Subcutaneous Lovenox Discharge Planning Case management managing discharge planning. Case management pursuing homeless [facility] for discharge planning. They will need to clear with orthopedist if they feel that that would be safe for this patient's discharge concerning the patient has already failed outpatient management previously and had undergo surgical intervention again due to noncompliance in outpatient setting Rufino Campos Jun 22, 2016 11:56
[2016-06-22 20:00] VITALS: BP 136/92; PULSE 84; RESP 18; TEMP 97.7
[2016-06-23 08:00] VITALS: BP 133/96; PULSE 79; RESP 12; TEMP 97.9; O2SAT 100
[2016-06-23] MEDS: ENOXAPARIN SODIUM 30 MG/0.3 ML SYRINGE SQ SCH (09:01)
[2016-06-23] MEDS: CALCIUM/VITAMIN D 250 MG/125 U TAB PO SCH ×3 (09:01→17:44)
[2016-06-23] MEDS: CHOLECALCIFEROL (VIT D3) 1000 UNIT TAB PO SCH (09:01)
--- NOTE | 2016-06-23 12:29 | HHI.PR ---
Subjective Remarks Status post ORIF right lower extremity. No acute complaints. Objective Vitals Vital Signs Date Time Temp Pulse Resp B/P Pulse Ox O2 Delivery O2 Flow Rate FiO2 06/23/16 08:00 97.9 79 12 133/96 100 06/22/16 20:00 97.7 84 18 136/92 06/22/16 17:33 12 I/O 06/22/16 06/22/16 06/22/16 06/23/16 06/23/16 06/23/16 07:00 15:00 23:00 07:00 15:00 23:00 Intake Total 480 ml 900 ml 650 ml 350 ml Balance 480 ml 900 ml 650 ml 350 ml Intake Oral 480 ml 900 ml 650 ml 350 ml # Voids 2 5 2 2 # Bowel Movements 0 0 Objective Remarks GENERAL: Well-nourished, well-developed patient in no apparent distress. CARDIOVASCULAR: Regular rate and rhythm. RESPIRATORY: No accessory muscle use. CTAB. MUSCULOSKELETAL: Fracture boot right lower extremity. Moves toes of right foot. Capillary refill normal in digits of right foot. NEUROLOGICAL: Awake and alert. Sensation to touch grossly intact over digits of right foot. Normal speech. Procedures 04/30/16: Removal of deep hardware, open reduction internal fixation right tibia nonunion, open reduction internal fixation right fibula nonunion, iliac crest bone grafting with stem cell graft Urinary Catheter: No Vascular Central Line Catheter: No A/P Problem List: (1) Tibia/fibula fracture ICD Code: S82.209A Status: Acute Assessment and Plan Right distal tibia/fibula nonunion Status post surgical intervention with removal of deep hardware, open reduction internal fixation right tibia nonunion, open reduction internal fixation of fibula nonunion, iliac crest bone grafting with stem cell graft. Strict nonweightbearing right lower extremity for 3 months postop, elevation, maintain splint Daily dressing changes right iliac crest bone graft site Right hip staple removal 05/21/16 Orthopedic following for management and care. Fracture boot placed on 06/17. Patient to wear boot at all times except for PT and showers. PT to work on stretching ankle. Pain control with Tylenol DVT prevention Subcutaneous Lovenox Discharge Planning Patient homeless. 06/19/16: Per CM, patient can stay at [facility] custodial until 07/29/16 to allow him to be nonweightbearing and safe environment; would assist with outpatient rehabilitation and transport assistance. CM contacted orthopedic PA and addressed this option, but PA will need to speak with Dr. Harris to determine if acceptable. Awaiting response from ortho. Problem Qualifiers (1) Tibia/fibula fracture: Kelli Barton Jun 23, 2016 12:29
[2016-06-23] MEDS: ACETAMINOPHEN 325 MG TAB PO PRN ×2 (13:56→22:25)
[2016-06-23 20:00] VITALS: BP 142/86; PULSE 86; RESP 20; TEMP 97.6; O2SAT 98
[2016-06-24 08:00] VITALS: BP 120/78; PULSE 66; RESP 16; TEMP 96.8; O2SAT 97
[2016-06-24] MEDS: CALCIUM/VITAMIN D 250 MG/125 U TAB PO SCH ×3 (08:13→17:08)
[2016-06-24] MEDS: CHOLECALCIFEROL (VIT D3) 1000 UNIT TAB PO SCH (08:13)
[2016-06-24] MEDS: ENOXAPARIN SODIUM 30 MG/0.3 ML SYRINGE SQ SCH (08:13)
--- NOTE | 2016-06-24 09:00 | HHI.PR ---
Subjective Remarks Follow-up status post ORIF RLE. No acute complaints. Objective Vitals Vital Signs Date Time Temp Pulse Resp B/P Pulse Ox O2 Delivery O2 Flow Rate FiO2 06/24/16 08:00 96.8 66 16 120/78 97 06/23/16 20:00 97.6 86 20 142/86 98 I/O 06/23/16 06/23/16 06/23/16 06/24/16 06/24/16 06/24/16 07:00 15:00 23:00 07:00 15:00 23:00 Intake Total 350 ml 480 ml 240 ml Balance 350 ml 480 ml 240 ml Intake Oral 350 ml 480 ml 240 ml # Voids 2 6 1 # Bowel Movements 1 0 Objective Remarks GENERAL: Well-nourished, well-developed patient in no apparent distress. CARDIOVASCULAR: Regular rate and rhythm. RESPIRATORY: No accessory muscle use. CTAB. MUSCULOSKELETAL: Fracture boot right lower extremity. Capillary refill normal in digits of right foot. NEUROLOGICAL: Awake and alert. Sensation to touch grossly intact over digits of right foot. Normal speech. Procedures 04/30/16: Removal of deep hardware, open reduction internal fixation right tibia nonunion, open reduction internal fixation right fibula nonunion, iliac crest bone grafting with stem cell graft Urinary Catheter: No Vascular Central Line Catheter: No A/P Problem List: (1) Tibia/fibula fracture ICD Code: S82.209A Status: Acute Assessment and Plan Right distal tibia/fibula nonunion Status post surgical intervention with removal of deep hardware, open reduction internal fixation right tibia nonunion, open reduction internal fixation of fibula nonunion, iliac crest bone grafting with stem cell graft. Strict nonweightbearing right lower extremity for 3 months postop, elevation, maintain splint Daily dressing changes right iliac crest bone graft site Right hip staple removal 05/21/16 Orthopedic following for management and care. Fracture boot placed on 06/17. Patient to wear boot at all times except for PT and showers. PT to work on stretching ankle. Pain control with Tylenol DVT prevention Subcutaneous Lovenox Nurse later informed me the patient was complaining of pain in his shoulders when lying down and this has been ongoing for a few weeks. The patient has not mentioned any shoulder pain to me. When I went back to reevaluate the patient he was in the shower. Orthopedics is coming to evaluate the patient today. Discharge Planning Patient homeless. 06/19/16: Per CM, patient can stay at [facility] until 07/29/16 to allow him to be nonweightbearing and safe environment; would assist with outpatient rehabilitation and transport assistance. CM discussed this with orthopedic PA. 06/24/16: I spoke with Rakesh Gonzalez, orthopedic PA, today who states he has discussed discharge plan with Dr. Harris, and if CM has a solid discharge plan and patient wants to be responsible for his own safety, we can discharge patient. He states he will come evaluate patient today. I have informed Marcin Stacy, heel caser, that ortho will be evaluating patient today and he will need to discuss discharge plan with ortho today or tomorrow. He understands. Problem Qualifiers (1) Tibia/fibula fracture: Kelli Barton Jun 24, 2016 09:00
--- NOTE | 2016-06-24 14:09 | PD.ORT.PN ---
Subjective Subjective Remarks Pain controlled. No new complaints Objective Vitals Vital Signs Date Time Temp Pulse Resp B/P Pulse Ox O2 Delivery O2 Flow Rate FiO2 06/24/16 08:00 96.8 66 16 120/78 97 06/23/16 20:00 97.6 86 20 142/86 98 I/O 06/23/16 06/23/16 06/23/16 06/24/16 06/24/16 06/24/16 07:00 15:00 23:00 07:00 15:00 23:00 Intake Total 350 ml 480 ml 240 ml Balance 350 ml 480 ml 240 ml Intake Oral 350 ml 480 ml 240 ml # Voids 2 6 1 # Bowel Movements 1 0 Imaging Last 72 hours Impressions Ankle X-Ray 04/30/16 0000 Signed Impressions: Service Date/Time: April 09:54 - CONCLUSION: Distal fibular and tibial hardware appears to be in good position status post revision. Chente Spain MD Objective Remarks RLE: fracture boot in place. Incision completely healed. Ankle range of motion 10 of dorsiflexion and 25 of plantarflexion. He has intact sensation distally in all toes. Good capillary refills Assessment & Plan Assessment and Plan 1) Revision right tibial pilon fracture with removal of hardware and iliac crest bone graft and open reduction internal fixation 04/30/16 Strict nonweightbearing right lower extremity 3 months postop fractured at all times except for physical therapy and showers PT to work on stretching of ankle [facility] case management for possible discharge planning. If facility confirmation is secured for discharge may consider discharge earlier than 3 months. He will need to have follow-up x-rays performed in 1 month. MAXIMO SOTELO PA-C Jun 24, 2016 14:09
[2016-06-24] MEDS: ACETAMINOPHEN 325 MG TAB PO PRN (17:08)
[2016-06-24 20:00] VITALS: BP 128/91; PULSE 73; RESP 16; TEMP 96.9; O2SAT 96
[2016-06-24] MEDS: TEMAZEPAM 15 MG CAP PO PRN (22:10)
[2016-06-25 08:00] VITALS: BP 104/74; PULSE 70; RESP 18; TEMP 96.9; O2SAT 98
[2016-06-25] MEDS: CALCIUM/VITAMIN D 250 MG/125 U TAB PO SCH ×3 (08:58→16:36)
[2016-06-25] MEDS: ACETAMINOPHEN 325 MG TAB PO PRN (08:59)
[2016-06-25] MEDS: ENOXAPARIN SODIUM 30 MG/0.3 ML SYRINGE SQ SCH (08:59)
[2016-06-25] MEDS: CHOLECALCIFEROL (VIT D3) 1000 UNIT TAB PO SCH (09:03)
--- NOTE | 2016-06-25 12:21 | HHI.PR ---
Subjective Remarks Patient examined today. No change in clinical status. Objective Vitals Vital Signs Date Time Temp Pulse Resp B/P Pulse Ox O2 Delivery O2 Flow Rate FiO2 06/25/16 09:59 14 06/25/16 08:00 96.9 70 18 104/74 98 06/24/16 20:00 96.9 73 16 128/91 96 I/O 06/24/16 06/24/16 06/24/16 06/25/16 06/25/16 06/25/16 07:00 15:00 23:00 07:00 15:00 23:00 Intake Total 240 ml 620 ml 480 ml 480 ml Balance 240 ml 620 ml 480 ml 480 ml Intake Oral 240 ml 620 ml 480 ml 480 ml # Voids 1 2 4 1 # Bowel Movements 0 1 0 0 Objective Remarks GENERAL: Well-nourished, well-developed patient in no apparent distress. SKIN: Surgical scar medial R lower leg. CARDIOVASCULAR: Regular rate and rhythm. RESPIRATORY: No accessory muscle use. CTAB. MUSCULOSKELETAL: Intact R DP pulse. Capillary refill normal in digits of right foot. Moves toes. NEUROLOGICAL: Awake and alert. Normal speech. Procedures 04/30/16: Removal of deep hardware, open reduction internal fixation right tibia nonunion, open reduction internal fixation right fibula nonunion, iliac crest bone grafting with stem cell graft Urinary Catheter: No Vascular Central Line Catheter: No A/P Problem List: (1) Tibia/fibula fracture ICD Code: S82.209A Status: Acute Assessment and Plan Right distal tibia/fibula nonunion Status post surgical intervention with removal of deep hardware, open reduction internal fixation right tibia nonunion, open reduction internal fixation of fibula nonunion, iliac crest bone grafting with stem cell graft. Strict nonweightbearing right lower extremity for 3 months postop, elevation, maintain splint Orthopedic following for management and care. Fracture boot placed on 06/17. Patient to wear boot at all times except for PT and showers. PT to work on stretching ankle. Pain control with Tylenol Ortho PA last evaluated patient on 06/24/16; states "If facility confirmation is secured for discharge may consider discharge earlier than 3 months. He will need to have follow-up x-rays performed in 1 month." DVT prevention Subcutaneous Lovenox Discharge Planning Patient homeless. 06/19/16: Per CM, patient can stay at [facility] until 07/29/16 to allow him to be nonweightbearing and safe environment; would assist with outpatient rehabilitation and transport assistance. CM discussed this with orthopedic PA. 06/24/16: I spoke with Rakesh Gonzalez, orthopedic PA, who states he has discussed discharge plan with Dr. Harris, and if CM has a solid discharge plan and patient wants to be responsible for his own safety, we can discharge patient. I have informed Marcin Stacy, nurse case manager, that he will need to discuss discharge plan with orthopedics. 06/25/16: CM awaiting final decision from ortho. Problem Qualifiers (1) Tibia/fibula fracture: Kelli Barton Jun 25, 2016 12:21
[2016-06-25] MEDS: ERGOCALCIFEROL (VIT D2) 50,000 UNIT CAP PO SCH (16:36)
[2016-06-25 20:00] VITALS: BP 128/90; PULSE 80; RESP 14; TEMP 98.2; O2SAT 98
[2016-06-26 08:00] VITALS: BP 112/80; PULSE 67; RESP 18; TEMP 98.3; O2SAT 97
[2016-06-26] MEDS: ACETAMINOPHEN 325 MG TAB PO PRN (09:36)
[2016-06-26] MEDS: CALCIUM/VITAMIN D 250 MG/125 U TAB PO SCH ×3 (09:36→16:42)
[2016-06-26] MEDS: ENOXAPARIN SODIUM 30 MG/0.3 ML SYRINGE SQ SCH (09:36)
[2016-06-26] MEDS: CHOLECALCIFEROL (VIT D3) 1000 UNIT TAB PO SCH (09:39)
[2016-06-26] MEDS ORDERED: WALKER/ADULT/FO1 MIS (11:09)
--- NOTE | 2016-06-26 11:09 | HHI.FF ---
Face to Face Verification Diagnosis: (1) Tibia/fibula fracture Physical Therapy Right LE Weight Bearing: Non WB Right LE Range of Motion: Passive ROM Left LE Weight Bearing: WB as tolerated S/P Spinal Fusion: Gait training with walker Additional Instructions must wear fracture boot I have seen patient Luis Lagunas on 06/26/16. My clinical findings support the need for the requested home health care services because: Limited ability to care for self I certify that my clinical findings support that this patient is homebound because: Post-op weakness MAXIMO SOTELO PA-C Jun 26, 2016 11:08
--- NOTE | 2016-06-26 13:19 | HHI.PR ---
Subjective Remarks No acute complaints. No change in clinical status. Objective Vitals Vital Signs Date Time Temp Pulse Resp B/P Pulse Ox O2 Delivery O2 Flow Rate FiO2 06/26/16 10:53 14 06/26/16 08:00 98.3 67 18 112/80 97 06/25/16 20:00 98.2 80 14 128/90 98 I/O 06/25/16 06/25/16 06/25/16 06/26/16 06/26/16 06/26/16 07:00 15:00 23:00 07:00 15:00 23:00 Intake Total 480 ml 480 ml 600 ml 240 ml 310 ml Balance 480 ml 480 ml 600 ml 240 ml 310 ml Intake Oral 480 ml 480 ml 600 ml 240 ml 310 ml # Voids 1 3 2 1 # Bowel Movements 0 0 0 0 Objective Remarks GENERAL: Well-nourished, well-developed patient in no apparent distress. CARDIOVASCULAR: Regular rate and rhythm. RESPIRATORY: No accessory muscle use. CTAB. GASTROINTESTINAL: Abdomen soft, non-tender, non-distended. MUSCULOSKELETAL: Fracture boot right lower extremity. Capillary refill normal in digits of right foot. NEUROLOGICAL: Awake and alert. Gross sensation intact over digits of right foot. Normal speech. Procedures 04/30/16: Removal of deep hardware, open reduction internal fixation right tibia nonunion, open reduction internal fixation right fibula nonunion, iliac crest bone grafting with stem cell graft Urinary Catheter: No Vascular Central Line Catheter: No A/P Problem List: (1) Tibia/fibula fracture ICD Code: S82.209A Status: Acute Assessment and Plan Right distal tibia/fibula nonunion Status post surgical intervention with removal of deep hardware, open reduction internal fixation right tibia nonunion, open reduction internal fixation of fibula nonunion, iliac crest bone grafting with stem cell graft. Strict nonweightbearing right lower extremity for 3 months postop, elevation, maintain splint Orthopedic following for management and care. Fracture boot placed on 06/17. Patient to wear boot at all times except for PT and showers. PT to work on stretching ankle. Pain control with Tylenol Ortho PA last evaluated patient on 06/24/16 DVT prevention Subcutaneous Lovenox Discharge Planning Patient homeless. 06/19/16: Per CM, patient can stay at [facility] longterm until 07/29/16 to allow him to be nonweightbearing and safe environment; would assist with outpatient rehabilitation and transport assistance. SHANIKA discussed this with orthopedic PA. 06/24/16: Per ortho, if facility confirmation is secured for discharge may consider discharge earlier than 3 months. He will need to have follow-up x- rays performed in 1 month." 06/26/16: I spoke with Marcin Stacy CM today. Ortho initially cleared patient for discharge, but it came to light today that patient does not plan on staying at the longterm if discharged. Marcin relayed this to ortho PA Rakesh Gonzalez who states the patient cannot be discharged. Problem Qualifiers (1) Tibia/fibula fracture: Kelli Barton Jun 26, 2016 13:19
[2016-06-26 20:00] VITALS: BP 125/86; PULSE 79; RESP 18; TEMP 98; O2SAT 97
[2016-06-27 08:00] VITALS: BP_SYST 127; BP_SYST 147; BP_DIAS 87; BP_DIAS 91; PULSE 78; RESP 16; TEMP 98.9; O2SAT 99
[2016-06-27] MEDS: ENOXAPARIN SODIUM 30 MG/0.3 ML SYRINGE SQ SCH (09:04)
[2016-06-27] MEDS: CHOLECALCIFEROL (VIT D3) 1000 UNIT TAB PO SCH (09:04)
[2016-06-27] MEDS: CALCIUM/VITAMIN D 250 MG/125 U TAB PO SCH ×3 (09:04→17:31)
--- NOTE | 2016-06-27 11:35 | HHI.PR ---
Subjective Remarks No acute complaints. No change in clinical status. Objective Vitals Vital Signs Date Time Temp Pulse Resp B/P Pulse Ox O2 Delivery O2 Flow Rate FiO2 06/27/16 08:00 98.9 78 16 127/87 99 06/26/16 20:00 98.0 79 18 125/86 97 I/O 06/26/16 06/26/16 06/26/16 06/27/16 06/27/16 06/27/16 07:00 15:00 23:00 07:00 15:00 23:00 Intake Total 240 ml 310 ml 420 ml Balance 240 ml 310 ml 420 ml Intake Oral 240 ml 310 ml 420 ml # Voids 1 6 # Bowel Movements 0 0 Objective Remarks GENERAL: Well-nourished, well-developed patient in no apparent distress. CARDIOVASCULAR: Regular rate and rhythm. RESPIRATORY: No accessory muscle use. CTAB. MUSCULOSKELETAL: Fracture boot right lower extremity. Capillary refill normal in digits of right foot. Moves toes normally. NEUROLOGICAL: Awake and alert. Gross sensation intact over digits of right foot. Normal speech. Procedures 04/30/16: Removal of deep hardware, open reduction internal fixation right tibia nonunion, open reduction internal fixation right fibula nonunion, iliac crest bone grafting with stem cell graft Urinary Catheter: No Vascular Central Line Catheter: No A/P Problem List: (1) Tibia/fibula fracture ICD Code: S82.209A Status: Acute Assessment and Plan Right distal tibia/fibula nonunion Status post surgical intervention with removal of deep hardware, open reduction internal fixation right tibia nonunion, open reduction internal fixation of fibula nonunion, iliac crest bone grafting with stem cell graft. Strict nonweightbearing right lower extremity for 3 months postop, elevation, maintain splint Orthopedic following for management and care. Fracture boot placed on 06/17. Patient to wear boot at all times except for PT and showers. PT to work on stretching ankle. Pain control with Tylenol Ortho PA last evaluated patient on 06/24/16 DVT prevention Subcutaneous Lovenox Discharge Planning Patient homeless. 06/19/16: Per CM, patient can stay at [facility] until 07/29/16 to allow him to be nonweightbearing and safe environment; would assist with outpatient rehabilitation and transport assistance. CM discussed this with orthopedic PA. 06/24/16: Per ortho, if facility confirmation is secured for discharge may consider discharge earlier than 3 months. He will need to have follow-up x- rays performed in 1 month." 06/26/16: I spoke with Marcin Stacy CM. Ortho initially cleared patient for discharge, but it came to light that patient does not plan on staying at the senior care if discharged. Marcin relayed this to ortho PA Rakesh Gonzalez who states the patient cannot be discharged. Problem Qualifiers (1) Tibia/fibula fracture: Kelli Barton Jun 27, 2016 11:35
[2016-06-27] MEDS: ACETAMINOPHEN 325 MG TAB PO PRN (17:36)
[2016-06-27 20:00] VITALS: BP 134/89; PULSE 68; RESP 18; TEMP 98.4; O2SAT 97
[2016-06-28 08:00] VITALS: BP 126/78; PULSE 62; RESP 16; TEMP 97.7; O2SAT 99
[2016-06-28] MEDS: CHOLECALCIFEROL (VIT D3) 1000 UNIT TAB PO SCH (09:41)
[2016-06-28] MEDS: ENOXAPARIN SODIUM 30 MG/0.3 ML SYRINGE SQ SCH (09:42)
[2016-06-28] MEDS: CALCIUM/VITAMIN D 250 MG/125 U TAB PO SCH ×3 (09:42→18:16)
--- NOTE | 2016-06-28 17:05 | HHI.PR ---
Subjective Remarks Patient seen in room today. No complaints still awaiting safe discharge Objective Vitals Vital Signs Date Time Temp Pulse Resp B/P Pulse Ox O2 Delivery O2 Flow Rate FiO2 06/28/16 08:00 97.7 62 16 126/78 99 06/27/16 20:00 98.4 68 18 134/89 97 06/27/16 18:36 18 I/O 06/27/16 06/27/16 06/27/16 06/28/16 06/28/16 06/28/16 07:00 15:00 23:00 07:00 15:00 23:00 Intake Total 600 ml 240 ml 800 ml Output Total 450 ml Balance 600 ml -210 ml 800 ml Intake Oral 600 ml 240 ml 800 ml Output Urine Total 450 ml # Voids 6 4 3 # Bowel Movements 0 1 0 1 Objective Remarks GENERAL: This is a well-nourished, well-developed patient, in no apparent distress. CARDIOVASCULAR: Regular rate and rhythm without murmurs, gallops, or rubs. RESPIRATORY: Clear to auscultation. Breath sounds equal bilaterally. No wheezes , rales, or rhonchi. GASTROINTESTINAL: Abdomen soft, non-tender, nondistended. Normal active bowel sounds MUSCULOSKELETAL: Right tib-fib splinting and dressing, other 3 Extremities without clubbing, cyanosis, or edema. NEURO: Alert & Oriented x4 to person, place, time, situation. Moves all ext x4 Procedures 04/30/16: Removal of deep hardware, open reduction internal fixation right tibia nonunion, open reduction internal fixation right fibula nonunion, iliac crest bone grafting with stem cell graft A/P Problem List: (1) Tibia/fibula fracture ICD Code: S82.209A Status: Acute Assessment and Plan LMWH Discharge Planning Patient does have possible deployment to a homeless [facility]ci however he has refused this. We'll continue with plans for continued rehabilitation until patient can be safely discharged to the [facility] Problem Qualifiers (1) Tibia/fibula fracture: Amy Santana MD Jun 28, 2016 17:05
[2016-06-28 20:00] VITALS: BP 120/86; PULSE 84; RESP 18; TEMP 97.6; O2SAT 97
[2016-06-29] MEDS: ACETAMINOPHEN 325 MG TAB PO PRN ×2 (06:31→22:48)
[2016-06-29 08:11] VITALS: BP 124/87; PULSE 81; RESP 19; TEMP 97.6; O2SAT 97
[2016-06-29] MEDS: CHOLECALCIFEROL (VIT D3) 1000 UNIT TAB PO SCH (09:20)
[2016-06-29] MEDS: CALCIUM/VITAMIN D 250 MG/125 U TAB PO SCH ×3 (09:20→17:22)
[2016-06-29] MEDS: ENOXAPARIN SODIUM 30 MG/0.3 ML SYRINGE SQ SCH (10:00)
--- NOTE | 2016-06-29 11:43 | HHI.PR ---
Subjective Remarks Patient requests that his Lovenox be stopped. He tells me he just took a lap around the [place]. Objective Vitals Vital Signs Date Time Temp Pulse Resp B/P Pulse Ox O2 Delivery O2 Flow Rate FiO2 06/29/16 08:11 97.6 81 19 124/87 97 06/29/16 07:31 16 06/28/16 20:00 97.6 84 18 120/86 97 I/O 06/28/16 06/28/16 06/28/16 06/29/16 06/29/16 06/29/16 07:00 15:00 23:00 07:00 15:00 23:00 Intake Total 240 ml 800 ml 480 ml 420 ml Output Total 450 ml Balance -210 ml 800 ml 480 ml 420 ml Intake Oral 240 ml 800 ml 480 ml 420 ml Output Urine Total 450 ml # Voids 3 2 1 # Bowel Movements 0 1 0 0 Objective Remarks GENERAL: Well-nourished, well-developed patient in no apparent distress. CARDIOVASCULAR: Regular rate and rhythm. RESPIRATORY: No accessory muscle use. CTAB. MUSCULOSKELETAL: Fracture boot right lower extremity. Capillary refill normal in digits of right foot. Moves toes normally. NEUROLOGICAL: Awake and alert. Gross sensation intact over digits of right foot. Normal speech. Procedures 04/30/16: Removal of deep hardware, open reduction internal fixation right tibia nonunion, open reduction internal fixation right fibula nonunion, iliac crest bone grafting with stem cell graft Urinary Catheter: No Vascular Central Line Catheter: No A/P Problem List: (1) Tibia/fibula fracture ICD Code: S82.209A Status: Acute Assessment and Plan Right distal tibia/fibula nonunion Status post surgical intervention with removal of deep hardware, open reduction internal fixation right tibia nonunion, open reduction internal fixation of fibula nonunion, iliac crest bone grafting with stem cell graft. Strict nonweightbearing right lower extremity for 3 months postop, elevation, maintain splint Orthopedic following for management and care. Fracture boot placed on 06/17. Patient to wear boot at all times except for PT and showers. PT to work on stretching ankle. Pain control with Tylenol Ortho PA last evaluated patient on 06/24/16 DVT prevention D/c Lovenox as patient has been receiving for 2 months and he is ambulatory with crutches. Patient assures me he will ambulate multiple times per day. Discharge Planning Patient homeless. 06/19/16: Per CM, patient can stay at [facility] until 07/29/16 to allow him to be nonweightbearing and safe environment; would assist with outpatient rehabilitation and transport assistance. SHANIKA discussed this with orthopedic PA. 06/24/16: Per ortho, if facility confirmation is secured for discharge may consider discharge earlier than 3 months. He will need to have follow-up x- rays performed in 1 month." 06/26/16: I spoke with Marcin Stacy CM. Ortho initially cleared patient for discharge, but it came to light that patient does not plan on staying at the [facility] if discharged. Marcin relayed this to ortho PA Rakesh Gonzalez who states the patient cannot be discharged. Problem Qualifiers (1) Tibia/fibula fracture: Kelli Barton Jun 29, 2016 11:43
[2016-06-29 20:00] VITALS: BP 139/82; PULSE 78; RESP 18; TEMP 97.2; O2SAT 97
[2016-06-29] MEDS: TEMAZEPAM 15 MG CAP PO PRN (22:48)
[2016-06-30 08:00] VITALS: BP 141/93; PULSE 76; RESP 18; TEMP 96.5; O2SAT 98
--- NOTE | 2016-06-30 09:23 | HHI.PR ---
Subjective Remarks Patient seen and examined today. Patient denies any new complaints. No change in clinical status. Awaiting case management discharge planning Objective Vitals Vital Signs Date Time Temp Pulse Resp B/P Pulse Ox O2 Delivery O2 Flow Rate FiO2 06/30/16 00:29 16 06/29/16 20:00 97.2 78 18 139/82 97 I/O 06/29/16 06/29/16 06/29/16 06/30/16 06/30/16 06/30/16 07:00 15:00 23:00 07:00 15:00 23:00 Intake Total 420 ml 360 ml Balance 420 ml 360 ml Intake Oral 420 ml 360 ml # Voids 1 2 # Bowel Movements 0 1 Objective Remarks GENERAL: Well-developed, well-nourished, in no acute distress. alert and orientated HEENT: Head is normocephalic without any lesions or masses noted. Facial features are symmetric. Eyes: Extraocular muscles are intact. Conjunctivae were clear. NECK: Trachea midline no deviation. CARDIAC: Regular rhythm, regular rate. S1/S2 are heard. No murmurs gallops or rubs. LUNGS: Clear to auscultation bilaterally. No wheeze, rhonchi or rales. No use of accessory muscles on inspiration or expiration. ABDOMEN: Soft, nontender. Nondistended. Bowel sounds heard in all 4 quadrants. No organomegaly or masses. Negative rebound, negative guarding EXTREMITIES: No edema,. No cyanosis or clubbing. Right lower extremity is in splint NEUROLOGY: Mood and affect appear appropriate. Cranial nerves II through XII grossly intact. Moving all extremities, speech is clear Procedures 04/30/16: Removal of deep hardware, open reduction internal fixation right tibia nonunion, open reduction internal fixation right fibula nonunion, iliac crest bone grafting with stem cell graft Urinary Catheter: No Vascular Central Line Catheter: No A/P Assessment and Plan Right distal tibia/fibula nonunion Status postsurgical intervention with removal of deep hardware, open reduction internal fixation right tibia nonunion, open reduction internal fixation of fibula nonunion, iliac crest bone grafting with stem cell graft Strict nonweightbearing right lower extremity, 3 months from date of surgery patient in fracture boot Orthopedic following for management and care, last seen 06/24/16 Removed right hip petros 05/21/16 Pain control: Tylenol every 6 hours as needed DVT prevention Patient ambulating Discharge Planning Case management managing discharge planning. Case management pursuing homeless retirement for discharge planning. However, patient states that he will not stay in a homeless retirement. That he return to his place of residence. Because of this, orthopedic does not feel that it's safe discharge. Patient remained in the hospital until orthopedic clears patient for discharge. Rufino Campos Jun 30, 2016 09:23
[2016-06-30] MEDS: CALCIUM/VITAMIN D 250 MG/125 U TAB PO SCH ×3 (09:30→17:54)
[2016-06-30] MEDS: CHOLECALCIFEROL (VIT D3) 1000 UNIT TAB PO SCH (09:30)
[2016-06-30] MEDS: ACETAMINOPHEN 325 MG TAB PO PRN (09:33)
[2016-06-30 20:00] VITALS: BP 145/96; PULSE 73; RESP 20; TEMP 98.5; O2SAT 98
[2016-07-01] MEDS: ACETAMINOPHEN 325 MG TAB PO PRN (05:08)
[2016-07-01 08:00] VITALS: BP 119/81; PULSE 75; RESP 18; TEMP 97.3; O2SAT 96
[2016-07-01] MEDS: CALCIUM/VITAMIN D 250 MG/125 U TAB PO SCH ×3 (08:26→18:00)
[2016-07-01] MEDS: CHOLECALCIFEROL (VIT D3) 1000 UNIT TAB PO SCH (08:29)
--- NOTE | 2016-07-01 08:35 | HHI.PR ---
Subjective Remarks Patient seen and examined today. Patient states that his bilateral shoulders are starting to hurt him more during this hospitalization than his previous hospitalization. I instructed him it could be related to the use of crutches. I counseled the patient on anti-inflammatory use. Objective Vitals Vital Signs Date Time Temp Pulse Resp B/P Pulse Ox O2 Delivery O2 Flow Rate FiO2 07/01/16 06:08 16 06/30/16 20:00 98.5 73 20 145/96 98 I/O 06/30/16 06/30/16 06/30/16 07/01/16 07/01/16 07/01/16 07:00 15:00 23:00 07:00 15:00 23:00 Intake Total 960 ml 1130 ml 160 ml Balance 960 ml 1130 ml 160 ml Intake Oral 960 ml 1130 ml 160 ml # Voids 2 3 1 2 # Bowel Movements 1 1 Objective Remarks GENERAL: Well-developed, well-nourished, in no acute distress. alert and orientated HEENT: Head is normocephalic without any lesions or masses noted. Facial features are symmetric. Eyes: Extraocular muscles are intact. Conjunctivae were clear. NECK: Trachea midline no deviation. CARDIAC: Regular rhythm, regular rate. S1/S2 are heard. No murmurs gallops or rubs. LUNGS: Clear to auscultation bilaterally. No wheeze, rhonchi or rales. No use of accessory muscles on inspiration or expiration. ABDOMEN: Soft, nontender. Nondistended. Bowel sounds heard in all 4 quadrants. No organomegaly or masses. Negative rebound, negative guarding EXTREMITIES: No edema,. No cyanosis or clubbing. Right lower extremity is in splint NEUROLOGY: Mood and affect appear appropriate. Cranial nerves II through XII grossly intact. Moving all extremities, speech is clear Procedures 04/30/16: Removal of deep hardware, open reduction internal fixation right tibia nonunion, open reduction internal fixation right fibula nonunion, iliac crest bone grafting with stem cell graft Urinary Catheter: No Vascular Central Line Catheter: No A/P Assessment and Plan Right distal tibia/fibula nonunion Status postsurgical intervention with removal of deep hardware, open reduction internal fixation right tibia nonunion, open reduction internal fixation of fibula nonunion, iliac crest bone grafting with stem cell graft Strict nonweightbearing right lower extremity, 3 months from date of surgery patient in fracture boot Orthopedic following for management and care, last seen 06/24/16 Removed right hip petros 05/21/16 Pain control: Tylenol every 6 hours as needed Bilateral shoulder pain, likely secondary to crutch use Start ibuprofen 600 mg every 8 hours as needed Reviewed previous admission x-rays, no shoulder x-rays have been performed. However shoulders are visualized in multiple radiology exams which did not indicate any abnormalities DVT prevention Patient ambulating Discharge Planning Case management managing discharge planning. Case management pursuing homeless intermediate for discharge planning. However, patient states that he will not stay in a homeless intermediate. That he return to his place of residence. Because of this, orthopedic does not feel that it's safe discharge. Patient remained in the hospital until orthopedic clears patient for discharge. Rufino Campos Jul 01, 2016 08:35
[2016-07-01] MEDS: IBUPROFEN 600 MG TAB PO PRN (18:00)
[2016-07-01 20:00] VITALS: BP 119/87; PULSE 65; RESP 16; TEMP 97.4; O2SAT 98
[2016-07-02] MEDS: IBUPROFEN 600 MG TAB PO PRN ×3 (03:53→20:55)
--- NOTE | 2016-07-02 07:27 | PD.ORT.PN ---
Subjective Subjective Remarks Pain controlled. No new complaints Objective Vitals Vital Signs Date Time Temp Pulse Resp B/P Pulse Ox O2 Delivery O2 Flow Rate FiO2 07/02/16 04:53 16 07/01/16 20:00 97.4 65 16 119/87 98 07/01/16 08:00 97.3 75 18 119/81 96 I/O 07/01/16 07/01/16 07/01/16 07/02/16 07/02/16 07/02/16 07:00 15:00 23:00 07:00 15:00 23:00 Intake Total 160 ml 860 ml 600 ml 420 ml Balance 160 ml 860 ml 600 ml 420 ml Intake Oral 160 ml 860 ml 600 ml 420 ml IV Total 0 ml # Voids 2 3 3 2 # Bowel Movements 1 0 0 Imaging Last 72 hours Impressions Ankle X-Ray 04/30/16 0000 Signed Impressions: Service Date/Time: April 09:54 - CONCLUSION: Distal fibular and tibial hardware appears to be in good position status post revision. Chente Spain MD Objective Remarks RLE: fracture boot in place. Incision completely healed. Ankle range of motion 10 of dorsiflexion and 25 of plantarflexion. He has intact sensation distally in all toes. Good capillary refills Assessment & Plan Assessment and Plan 1) Revision right tibial pilon fracture with removal of hardware and iliac crest bone graft and open reduction internal fixation 04/30/16 Strict nonweightbearing right lower extremity 3 months postop fracture boot at all times except for physical therapy and showers PT to work on stretching of ankle [facility] case management for possible discharge planning. If facility confirmation is secured for discharge may consider discharge earlier than 3 months. He will need to have follow-up x-rays performed in 1 month. MAXIMO SOTELO PA-C Jul 02, 2016 07:27
[2016-07-02] MEDS: CHOLECALCIFEROL (VIT D3) 1000 UNIT TAB PO SCH (07:52)
[2016-07-02] MEDS: CALCIUM/VITAMIN D 250 MG/125 U TAB PO SCH ×3 (07:53→17:27)
[2016-07-02] MEDS: ACETAMINOPHEN 325 MG TAB PO PRN ×2 (07:56→17:28)
[2016-07-02 08:00] VITALS: BP 125/89; PULSE 69; RESP 20; TEMP 96.8; O2SAT 100
--- NOTE | 2016-07-02 09:13 | HHI.PR ---
Subjective Remarks Patient seen and examined today. Patient denies any new complaints. No change in clinical status. Awaiting case management for discharge planning. Objective Vitals Vital Signs Date Time Temp Pulse Resp B/P Pulse Ox O2 Delivery O2 Flow Rate FiO2 07/02/16 08:57 18 07/02/16 04:53 16 07/01/16 20:00 97.4 65 16 119/87 98 I/O 07/01/16 07/01/16 07/01/16 07/02/16 07/02/16 07/02/16 07:00 15:00 23:00 07:00 15:00 23:00 Intake Total 160 ml 860 ml 600 ml 420 ml Balance 160 ml 860 ml 600 ml 420 ml Intake Oral 160 ml 860 ml 600 ml 420 ml IV Total 0 ml # Voids 2 3 3 2 # Bowel Movements 1 0 0 Objective Remarks GENERAL: Well-developed, well-nourished, in no acute distress. alert and orientated HEENT: Head is normocephalic without any lesions or masses noted. Facial features are symmetric. Eyes: Extraocular muscles are intact. Conjunctivae were clear. NECK: Trachea midline no deviation. CARDIAC: Regular rhythm, regular rate. S1/S2 are heard. No murmurs gallops or rubs. LUNGS: Clear to auscultation bilaterally. No wheeze, rhonchi or rales. No use of accessory muscles on inspiration or expiration. ABDOMEN: Soft, nontender. Nondistended. Bowel sounds heard in all 4 quadrants. No organomegaly or masses. Negative rebound, negative guarding EXTREMITIES: No edema,. No cyanosis or clubbing. Right lower extremity is in splint NEUROLOGY: Mood and affect appear appropriate. Cranial nerves II through XII grossly intact. Moving all extremities, speech is clear Procedures 04/30/16: Removal of deep hardware, open reduction internal fixation right tibia nonunion, open reduction internal fixation right fibula nonunion, iliac crest bone grafting with stem cell graft Urinary Catheter: No Vascular Central Line Catheter: No A/P Assessment and Plan Right distal tibia/fibula nonunion Status postsurgical intervention with removal of deep hardware, open reduction internal fixation right tibia nonunion, open reduction internal fixation of fibula nonunion, iliac crest bone grafting with stem cell graft Strict nonweightbearing right lower extremity, 3 months from date of surgery patient in fracture boot Orthopedic following for management and care, last seen 06/24/16 Removed right hip petros 05/21/16 Pain control: Tylenol every 6 hours as needed Bilateral shoulder pain, likely secondary to crutch use ibuprofen 600 mg every 8 hours as needed Reviewed previous admission x-rays, no shoulder x-rays have been performed. However shoulders are visualized in multiple radiology exams which did not indicate any abnormalities DVT prevention Patient ambulating Discharge Planning Case management managing discharge planning. Case management pursuing homeless [facility] for discharge planning. However, patient states that he will not stay in a homeless fci. That he return to his place of residence. Because of this, orthopedic does not feel that it's safe discharge. Patient remained in the hospital until orthopedic clears patient for discharge. Rufino Campos Jul 02, 2016 09:13
[2016-07-02] MEDS: ERGOCALCIFEROL (VIT D2) 50,000 UNIT CAP PO SCH (11:53)
[2016-07-02 20:00] VITALS: BP 131/91; PULSE 63; RESP 18; TEMP 96.1; O2SAT 96
[2016-07-03] MEDS: IBUPROFEN 600 MG TAB PO PRN (06:49)
[2016-07-03] MEDS: CALCIUM/VITAMIN D 250 MG/125 U TAB PO SCH ×3 (07:56→16:09)
[2016-07-03] MEDS: CHOLECALCIFEROL (VIT D3) 1000 UNIT TAB PO SCH (07:56)
[2016-07-03 08:00] VITALS: BP 122/86; PULSE 68; RESP 20; TEMP 97.3; O2SAT 96
--- NOTE | 2016-07-03 08:18 | HHI.PR ---
Subjective Remarks Patient seen and examined today. Patient denies any new complaints. No change in clinical status. Awaiting case management discharge planning. Objective Vitals Vital Signs Date Time Temp Pulse Resp B/P Pulse Ox O2 Delivery O2 Flow Rate FiO2 07/02/16 20:00 96.1 63 18 131/91 96 07/02/16 08:57 18 I/O 07/02/16 07/02/16 07/02/16 07/03/16 07/03/16 07/03/16 07:00 15:00 23:00 07:00 15:00 23:00 Intake Total 420 ml 1000 ml 1440 ml Balance 420 ml 1000 ml 1440 ml Intake Oral 420 ml 1000 ml 1440 ml # Voids 2 4 7 # Bowel Movements 0 0 2 Objective Remarks GENERAL: Well-developed, well-nourished, in no acute distress. alert and orientated HEENT: Head is normocephalic without any lesions or masses noted. Facial features are symmetric. Eyes: Extraocular muscles are intact. Conjunctivae were clear. NECK: Trachea midline no deviation. CARDIAC: Regular rhythm, regular rate. S1/S2 are heard. No murmurs gallops or rubs. LUNGS: Clear to auscultation bilaterally. No wheeze, rhonchi or rales. No use of accessory muscles on inspiration or expiration. ABDOMEN: Soft, nontender. Nondistended. Bowel sounds heard in all 4 quadrants. No organomegaly or masses. Negative rebound, negative guarding EXTREMITIES: No edema,. No cyanosis or clubbing. Right lower extremity is in splint NEUROLOGY: Mood and affect appear appropriate. Cranial nerves II through XII grossly intact. Moving all extremities, speech is clear Procedures 04/30/16: Removal of deep hardware, open reduction internal fixation right tibia nonunion, open reduction internal fixation right fibula nonunion, iliac crest bone grafting with stem cell graft Urinary Catheter: No Vascular Central Line Catheter: No A/P Assessment and Plan Right distal tibia/fibula nonunion Status postsurgical intervention with removal of deep hardware, open reduction internal fixation right tibia nonunion, open reduction internal fixation of fibula nonunion, iliac crest bone grafting with stem cell graft Strict nonweightbearing right lower extremity, 3 months from date of surgery patient in fracture boot Orthopedic following for management and care, last seen 06/24/16 Removed right hip petros 05/21/16 Pain control: Tylenol every 6 hours as needed Bilateral shoulder pain, likely secondary to crutch use ibuprofen 600 mg every 8 hours as needed Reviewed previous admission x-rays, no shoulder x-rays have been performed. However shoulders are visualized in multiple radiology exams which did not indicate any abnormalities DVT prevention Patient ambulating Discharge Planning Case management managing discharge planning. Case management pursuing homeless half-way for discharge planning. However, patient states that he will not stay in a homeless half-way. That he return to his place of residence. Because of this, orthopedic does not feel that it's safe discharge. Patient remained in the hospital until orthopedic clears patient for discharge. Rufino Campos Jul 03, 2016 08:18
[2016-07-03] MEDS: CALCIUM CARBONATE 500 MG CHEWABLE TAB CHEW PRN (10:43)
[2016-07-03] MEDS: ACETAMINOPHEN 325 MG TAB PO PRN ×2 (16:10→19:49)
[2016-07-03 20:39] VITALS: BP 137/82; PULSE 66; RESP 16; TEMP 97.5; O2SAT 98
[2016-07-04] MEDS: CALCIUM/VITAMIN D 250 MG/125 U TAB PO SCH ×3 (07:37→17:17)
[2016-07-04] MEDS: IBUPROFEN 600 MG TAB PO PRN ×2 (07:37→17:17)
[2016-07-04] MEDS: CHOLECALCIFEROL (VIT D3) 1000 UNIT TAB PO SCH (07:37)
[2016-07-04 08:00] VITALS: BP 131/75; PULSE 86; RESP 18; TEMP 97.1; O2SAT 98
--- NOTE | 2016-07-04 10:04 | HHI.PR ---
Subjective Remarks Patient seen and examined today. Patient denies any new complaints. No change in clinical status. Awaiting case management and orthopedic for discharge planning Objective Vitals Vital Signs Date Time Temp Pulse Resp B/P Pulse Ox O2 Delivery O2 Flow Rate FiO2 07/04/16 08:00 97.1 86 18 131/75 98 07/03/16 20:49 14 07/03/16 20:39 97.5 66 16 137/82 98 I/O 07/03/16 07/03/16 07/03/16 07/04/16 07/04/16 07/04/16 07:00 15:00 23:00 07:00 15:00 23:00 Intake Total 1440 ml 720 ml Balance 1440 ml 720 ml Intake Oral 1440 ml 720 ml # Voids 7 5 1 # Bowel Movements 2 1 Objective Remarks GENERAL: Well-developed, well-nourished, in no acute distress. alert and orientated HEENT: Head is normocephalic without any lesions or masses noted. Facial features are symmetric. Eyes: Extraocular muscles are intact. Conjunctivae were clear. NECK: Trachea midline no deviation. CARDIAC: Regular rhythm, regular rate. S1/S2 are heard. No murmurs gallops or rubs. LUNGS: Clear to auscultation bilaterally. No wheeze, rhonchi or rales. No use of accessory muscles on inspiration or expiration. ABDOMEN: Soft, nontender. Nondistended. Bowel sounds heard in all 4 quadrants. No organomegaly or masses. Negative rebound, negative guarding EXTREMITIES: No edema,. No cyanosis or clubbing. Right lower extremity is in splint NEUROLOGY: Mood and affect appear appropriate. Cranial nerves II through XII grossly intact. Moving all extremities, speech is clear Procedures 04/30/16: Removal of deep hardware, open reduction internal fixation right tibia nonunion, open reduction internal fixation right fibula nonunion, iliac crest bone grafting with stem cell graft Urinary Catheter: No Vascular Central Line Catheter: No A/P Assessment and Plan Right distal tibia/fibula nonunion Status postsurgical intervention with removal of deep hardware, open reduction internal fixation right tibia nonunion, open reduction internal fixation of fibula nonunion, iliac crest bone grafting with stem cell graft Strict nonweightbearing right lower extremity, 3 months from date of surgery patient in fracture boot Orthopedic following for management and care, last seen 1/25/17 Removed right hip petros 05/21/16 Pain control: Tylenol every 6 hours as needed Bilateral shoulder pain, likely secondary to crutch use ibuprofen 600 mg every 8 hours as needed Reviewed previous admission x-rays, no shoulder x-rays have been performed. However shoulders are visualized in multiple radiology exams which did not indicate any abnormalities DVT prevention Patient ambulating Discharge Planning Case management managing discharge planning. Case management pursuing homeless residential for discharge planning. However, patient states that he will not stay in a homeless residential. That he return to his place of residence. Because of this, orthopedic does not feel that it's safe discharge. Patient remained in the hospital until orthopedic clears patient for discharge. Rufino Campos Jul 04, 2016 10:04
[2016-07-04] MEDS: ACETAMINOPHEN 325 MG TAB PO PRN (11:24)
[2016-07-04 20:00] VITALS: BP 140/84; PULSE 69; RESP 16; TEMP 98; O2SAT 97
[2016-07-05] MEDS: IBUPROFEN 600 MG TAB PO PRN (06:18)
[2016-07-05 08:00] VITALS: BP 136/92; PULSE 78; RESP 18; TEMP 98.2; O2SAT 94
[2016-07-05] MEDS: CALCIUM/VITAMIN D 250 MG/125 U TAB PO SCH ×3 (08:21→17:24)
[2016-07-05] MEDS: CHOLECALCIFEROL (VIT D3) 1000 UNIT TAB PO SCH (08:21)
--- NOTE | 2016-07-05 10:17 | HHI.PR ---
Subjective Remarks Patient seen and examined today. Patient denies any new complaints. No change in clinical status. Awaiting case management for discharge planning. Objective Vitals Vital Signs Date Time Temp Pulse Resp B/P Pulse Ox O2 Delivery O2 Flow Rate FiO2 07/05/16 08:00 98.2 78 18 136/92 94 07/04/16 20:00 98.0 69 16 140/84 97 I/O 07/04/16 07/04/16 07/04/16 07/05/16 07/05/16 07/05/16 07:00 15:00 23:00 07:00 15:00 23:00 Intake Total 720 ml 480 ml 480 ml Balance 720 ml 480 ml 480 ml Intake Oral 720 ml 480 ml 480 ml # Voids 1 3 2 2 # Bowel Movements 0 0 0 Objective Remarks GENERAL: Well-developed, well-nourished, in no acute distress. alert and orientated HEENT: Head is normocephalic without any lesions or masses noted. Facial features are symmetric. Eyes: Extraocular muscles are intact. Conjunctivae were clear. NECK: Trachea midline no deviation. CARDIAC: Regular rhythm, regular rate. S1/S2 are heard. No murmurs gallops or rubs. LUNGS: Clear to auscultation bilaterally. No wheeze, rhonchi or rales. No use of accessory muscles on inspiration or expiration. ABDOMEN: Soft, nontender. Nondistended. Bowel sounds heard in all 4 quadrants. No organomegaly or masses. Negative rebound, negative guarding EXTREMITIES: No edema,. No cyanosis or clubbing. Right lower extremity is in splint NEUROLOGY: Mood and affect appear appropriate. Cranial nerves II through XII grossly intact. Moving all extremities, speech is clear Procedures 04/30/16: Removal of deep hardware, open reduction internal fixation right tibia nonunion, open reduction internal fixation right fibula nonunion, iliac crest bone grafting with stem cell graft Urinary Catheter: No Vascular Central Line Catheter: No A/P Assessment and Plan Right distal tibia/fibula nonunion Status postsurgical intervention with removal of deep hardware, open reduction internal fixation right tibia nonunion, open reduction internal fixation of fibula nonunion, iliac crest bone grafting with stem cell graft Strict nonweightbearing right lower extremity, 3 months from date of surgery patient in fracture boot Orthopedic following for management and care, last seen 06/24/16 Removed right hip petros 05/21/16 Pain control: Tylenol every 6 hours as needed Bilateral shoulder pain, likely secondary to crutch use ibuprofen 600 mg every 8 hours as needed Reviewed previous admission x-rays, no shoulder x-rays have been performed. However shoulders are visualized in multiple radiology exams which did not indicate any abnormalities DVT prevention Patient ambulating Discharge Planning Case management managing discharge planning. Case management pursuing homeless [facility] for discharge planning. However, patient states that he will not stay in a homeless [facility]. That he return to his place of residence. Because of this, orthopedic does not feel that it's safe discharge. Patient remained in the hospital until orthopedic clears patient for discharge. Rufino Campos Jul 05, 2016 10:17
[2016-07-05] MEDS: ACETAMINOPHEN 325 MG TAB PO PRN (17:24)
[2016-07-05 20:00] VITALS: BP 129/90; PULSE 79; RESP 16; TEMP 97.9; O2SAT 97
[2016-07-06] MEDS: CALCIUM/VITAMIN D 250 MG/125 U TAB PO SCH ×3 (07:40→16:35)
[2016-07-06] MEDS: ACETAMINOPHEN 325 MG TAB PO PRN ×2 (07:40→16:36)
[2016-07-06] MEDS: CHOLECALCIFEROL (VIT D3) 1000 UNIT TAB PO SCH (07:43)
[2016-07-06 08:00] VITALS: BP 126/67; PULSE 76; RESP 18; TEMP 98; O2SAT 98
--- NOTE | 2016-07-06 10:32 | HHI.PR ---
Subjective Remarks Patient seen and examined today. Patient denies any new complaints. Patient states that he believes the ibuprofen does help with his shoulder pain. Objective Vitals Vital Signs Date Time Temp Pulse Resp B/P Pulse Ox O2 Delivery O2 Flow Rate FiO2 07/06/16 08:51 12 07/06/16 08:00 98.0 76 18 126/67 98 07/05/16 20:00 97.9 79 16 129/90 97 I/O 07/05/16 07/05/16 07/05/16 07/06/16 07/06/16 07/06/16 07:00 15:00 23:00 07:00 15:00 23:00 Intake Total 480 ml 620 ml 480 ml 240 ml Output Total 2 ml Balance 480 ml 620 ml 478 ml 240 ml Intake Oral 480 ml 620 ml 480 ml 240 ml Output Urine Total 2 ml # Voids 2 2 2 # Bowel Movements 0 0 0 0 Objective Remarks GENERAL: Well-developed, well-nourished, in no acute distress. alert and orientated HEENT: Head is normocephalic without any lesions or masses noted. Facial features are symmetric. Eyes: Extraocular muscles are intact. Conjunctivae were clear. NECK: Trachea midline no deviation. CARDIAC: Regular rhythm, regular rate. S1/S2 are heard. No murmurs gallops or rubs. LUNGS: Clear to auscultation bilaterally. No wheeze, rhonchi or rales. No use of accessory muscles on inspiration or expiration. ABDOMEN: Soft, nontender. Nondistended. Bowel sounds heard in all 4 quadrants. No organomegaly or masses. Negative rebound, negative guarding EXTREMITIES: No edema,. No cyanosis or clubbing. Right lower extremity is in splint NEUROLOGY: Mood and affect appear appropriate. Cranial nerves II through XII grossly intact. Moving all extremities, speech is clear Procedures 04/30/16: Removal of deep hardware, open reduction internal fixation right tibia nonunion, open reduction internal fixation right fibula nonunion, iliac crest bone grafting with stem cell graft Urinary Catheter: No Vascular Central Line Catheter: No A/P Assessment and Plan Right distal tibia/fibula nonunion Status postsurgical intervention with removal of deep hardware, open reduction internal fixation right tibia nonunion, open reduction internal fixation of fibula nonunion, iliac crest bone grafting with stem cell graft Strict nonweightbearing right lower extremity, 3 months from date of surgery patient in fracture boot Orthopedic following for management and care, last seen 06/24/16 Removed right hip petros 05/21/16 Pain control: Tylenol every 6 hours as needed Bilateral shoulder pain, likely secondary to crutch use ibuprofen 600 mg every 8 hours as needed Reviewed previous admission x-rays, no shoulder x-rays have been performed. However shoulders are visualized in multiple radiology exams which did not indicate any abnormalities DVT prevention Patient ambulating Discharge Planning Case management managing discharge planning. Case management pursuing homeless longterm for discharge planning. However, patient states that he will not stay in a homeless longterm. That he return to his place of residence. Because of this, orthopedic does not feel that it's safe discharge. Patient remained in the hospital until orthopedic clears patient for discharge. Rufino Campos Jul 06, 2016 09:56
[2016-07-06 20:00] VITALS: BP 133/84; PULSE 74; RESP 18; TEMP 97.8; O2SAT 99
[2016-07-06] MEDS: IBUPROFEN 600 MG TAB PO PRN (21:01)
[2016-07-07 08:00] VITALS: BP 123/96; PULSE 78; RESP 20; TEMP 96.5; O2SAT 98
[2016-07-07] MEDS: CALCIUM/VITAMIN D 250 MG/125 U TAB PO SCH ×3 (08:45→17:01)
[2016-07-07] MEDS: CHOLECALCIFEROL (VIT D3) 1000 UNIT TAB PO SCH (08:45)
--- NOTE | 2016-07-07 13:35 | HHI.PR ---
Subjective Remarks Follow-up status post ORIF right lower extremity. Patient has no acute complaints. Objective Vitals Vital Signs Date Time Temp Pulse Resp B/P Pulse Ox O2 Delivery O2 Flow Rate FiO2 07/07/16 08:00 96.5 78 20 123/96 98 07/06/16 20:00 97.8 74 18 133/84 99 07/06/16 17:59 14 I/O 07/06/16 07/06/16 07/06/16 07/07/16 07/07/16 07/07/16 07:00 15:00 23:00 07:00 15:00 23:00 Intake Total 240 ml 1450 ml 420 ml Balance 240 ml 1450 ml 420 ml Intake Oral 240 ml 1450 ml 420 ml # Voids 2 6 4 1 # Bowel Movements 0 0 Objective Remarks GENERAL: Well-nourished, well-developed patient in no apparent distress. CARDIOVASCULAR: Regular rate and rhythm. RESPIRATORY: No accessory muscle use. CTAB. MUSCULOSKELETAL: Fracture boot right lower extremity. Capillary refill normal in digits of right foot. NEUROLOGICAL: Awake and alert. Gross sensation intact over digits of right foot. Normal speech. Procedures 04/30/16: Removal of deep hardware, open reduction internal fixation right tibia nonunion, open reduction internal fixation right fibula nonunion, iliac crest bone grafting with stem cell graft Urinary Catheter: No Vascular Central Line Catheter: No A/P Problem List: (1) Tibia/fibula fracture ICD Code: S82.209A Status: Acute Assessment and Plan Right distal tibia/fibula nonunion Status post surgical intervention with removal of deep hardware, open reduction internal fixation right tibia nonunion, open reduction internal fixation of fibula nonunion, iliac crest bone grafting with stem cell graft. Strict nonweightbearing right lower extremity for 3 months postop, elevation, maintain splint Orthopedic following for management and care. Fracture boot placed on 06/17. Patient to wear boot at all times except for PT and showers. PT to work on stretching ankle. Pain control with Tylenol Ortho PA last evaluated patient on DVT prevention D/c Lovenox as patient has been receiving for 2 months and he is ambulatory with crutches. Patient assures me he will ambulate multiple times per day. Discharge Planning Patient must be cleared by orthopedics for discharge. Problem Qualifiers (1) Tibia/fibula fracture: Kelli Barton Jul 07, 2016 13:35 (1) Tibia/fibula fracture: Kelli Barton Jul 07, 2016 13:35
[2016-07-07 20:00] VITALS: BP 127/91; PULSE 76; RESP 18; TEMP 97.4; O2SAT 98
[2016-07-07] MEDS: TEMAZEPAM 15 MG CAP PO PRN (22:18)
[2016-07-07] MEDS: IBUPROFEN 600 MG TAB PO PRN (22:19)
[2016-07-08] MEDS: CALCIUM/VITAMIN D 250 MG/125 U TAB PO SCH ×3 (07:40→16:35)
[2016-07-08] MEDS: CHOLECALCIFEROL (VIT D3) 1000 UNIT TAB PO SCH (07:40)
[2016-07-08 08:00] VITALS: BP 123/82; PULSE 77; RESP 16; TEMP 98.3; O2SAT 97
--- NOTE | 2016-07-08 12:10 | HHI.PR ---
Subjective Remarks No acute complaints. No change in clinical status. Objective Vitals Vital Signs Date Time Temp Pulse Resp B/P Pulse Ox O2 Delivery O2 Flow Rate FiO2 07/08/16 08:00 98.3 77 16 123/82 97 07/07/16 20:00 97.4 76 18 127/91 98 I/O 07/07/16 07/07/16 07/07/16 07/08/16 07/08/16 07/08/16 07:00 15:00 23:00 07:00 15:00 23:00 Intake Total 420 ml 1000 ml 700 ml 240 ml Balance 420 ml 1000 ml 700 ml 240 ml Intake Oral 420 ml 1000 ml 700 ml 240 ml # Voids 4 5 2 5 # Bowel Movements 0 0 0 Objective Remarks GENERAL: Well-nourished, well-developed patient in no apparent distress. CARDIOVASCULAR: Regular rate and rhythm. RESPIRATORY: No accessory muscle use. CTAB. MUSCULOSKELETAL: Fracture boot right lower extremity. 2+ right DP pulse. Capillary refill normal in digits of right foot. Moves right toes. NEUROLOGICAL: Awake and alert. Gross sensation intact over digits of right foot. Normal speech. Procedures 04/30/16: Removal of deep hardware, open reduction internal fixation right tibia nonunion, open reduction internal fixation right fibula nonunion, iliac crest bone grafting with stem cell graft Urinary Catheter: No Vascular Central Line Catheter: No A/P Problem List: (1) Tibia/fibula fracture ICD Code: S82.209A Status: Acute Assessment and Plan Right distal tibia/fibula nonunion Status post surgical intervention with removal of deep hardware, open reduction internal fixation right tibia nonunion, open reduction internal fixation of fibula nonunion, iliac crest bone grafting with stem cell graft. Strict nonweightbearing right lower extremity for 3 months postop, elevation, maintain splint Orthopedic following for management and care. Fracture boot placed on 06/17. Patient to wear boot at all times except for PT and showers. PT to work on stretching ankle. Pain control with Tylenol Ortho PA last evaluated patient on 07/02/16 DVT prevention Lovenox was discontinued as patient is ambulatory with crutches. Patient assured me he will ambulate multiple times per day. Discharge Planning Patient must be cleared by orthopedics for discharge. Problem Qualifiers (1) Tibia/fibula fracture: Kelli Barton Jul 08, 2016 12:10
[2016-07-08] MEDS: ACETAMINOPHEN 325 MG TAB PO PRN (14:54)
[2016-07-08 20:00] VITALS: BP 126/99; PULSE 79; RESP 16; TEMP 98; O2SAT 98
[2016-07-08] MEDS: IBUPROFEN 600 MG TAB PO PRN (20:58)
[2016-07-09] MEDS: CHOLECALCIFEROL (VIT D3) 1000 UNIT TAB PO SCH (08:01)
[2016-07-09] MEDS: CALCIUM/VITAMIN D 250 MG/125 U TAB PO SCH ×3 (08:01→17:52)
[2016-07-09 09:11] VITALS: BP 120/83; PULSE 76; RESP 16; TEMP 97.7; O2SAT 98
[2016-07-09] MEDS: ERGOCALCIFEROL (VIT D2) 50,000 UNIT CAP PO SCH (11:41)
--- NOTE | 2016-07-09 12:28 | HHI.PR ---
Subjective Remarks No acute complaints. No change in clinical status. Objective Vitals Vital Signs Date Time Temp Pulse Resp B/P Pulse Ox O2 Delivery O2 Flow Rate FiO2 07/09/16 09:11 97.7 76 16 120/83 98 07/08/16 20:00 98.0 79 16 126/99 98 07/08/16 16:36 14 I/O 07/08/16 07/08/16 07/08/16 07/09/16 07/09/16 07/09/16 07:00 15:00 23:00 07:00 15:00 23:00 Intake Total 240 ml 690 ml 480 ml 240 ml Balance 240 ml 690 ml 480 ml 240 ml Intake Oral 240 ml 690 ml 480 ml 240 ml # Voids 5 3 2 2 1 # Bowel Movements 0 1 0 0 Objective Remarks GENERAL: Well-nourished, well-developed patient in no apparent distress. CARDIOVASCULAR: Regular rate and rhythm. RESPIRATORY: No accessory muscle use. CTAB. MUSCULOSKELETAL: Fracture boot right lower extremity. Capillary refill normal in digits of right foot. NEUROLOGICAL: Awake and alert. Gross sensation intact over digits of right foot. Normal speech. Procedures 04/30/16: Removal of deep hardware, open reduction internal fixation right tibia nonunion, open reduction internal fixation right fibula nonunion, iliac crest bone grafting with stem cell graft Urinary Catheter: No Vascular Central Line Catheter: No A/P Problem List: (1) Tibia/fibula fracture ICD Code: S82.209A Status: Acute Assessment and Plan Right distal tibia/fibula nonunion Status post surgical intervention with removal of deep hardware, open reduction internal fixation right tibia nonunion, open reduction internal fixation of fibula nonunion, iliac crest bone grafting with stem cell graft. Strict nonweightbearing right lower extremity for 3 months postop, elevation, maintain splint Orthopedic following for management and care. Fracture boot placed on 06/17. Patient to wear boot at all times except for PT and showers. PT to work on stretching ankle. Pain control with Tylenol Ortho PA last evaluated patient on 07/02/16 DVT prevention Lovenox was discontinued as patient is ambulatory with crutches. Patient assured me he will ambulate multiple times per day. Discharge Planning Patient must be cleared by orthopedics for discharge. Problem Qualifiers (1) Tibia/fibula fracture: Kelli Barton Jul 09, 2016 12:27
[2016-07-09] MEDS: ACETAMINOPHEN 325 MG TAB PO PRN (13:28)
[2016-07-09 20:00] VITALS: BP 122/84; PULSE 76; RESP 16; TEMP 96.9; O2SAT 98
[2016-07-10] MEDS: IBUPROFEN 600 MG TAB PO PRN ×2 (00:41→20:58)
[2016-07-10] MEDS: ACETAMINOPHEN 325 MG TAB PO PRN (07:39)
[2016-07-10] MEDS: CALCIUM/VITAMIN D 250 MG/125 U TAB PO SCH ×3 (08:36→18:17)
[2016-07-10] MEDS: CHOLECALCIFEROL (VIT D3) 1000 UNIT TAB PO SCH (08:37)
[2016-07-10 09:00] VITALS: BP 121/84; PULSE 75; RESP 16; TEMP 98.4; O2SAT 96
--- NOTE | 2016-07-10 09:24 | HHI.PR ---
Subjective Remarks Follow-up s/p ORIF right lower extremity. Patient again complains of pain in his left shoulder joint. He states it feels like in ice pick stabbing him at night. He states it feels better when he stretches it out. He requested Bengay as he has already been taking Motrin. Objective Vitals Vital Signs Date Time Temp Pulse Resp B/P Pulse Ox O2 Delivery O2 Flow Rate FiO2 07/10/16 09:00 98.4 75 16 121/84 96 07/10/16 08:39 18 07/10/16 01:41 14 07/09/16 20:00 96.9 76 16 122/84 98 I/O 07/09/16 07/09/16 07/09/16 07/10/16 07/10/16 07/10/16 07:00 15:00 23:00 07:00 15:00 23:00 Intake Total 240 ml 1480 ml 240 ml Balance 240 ml 1480 ml 240 ml Intake Oral 240 ml 1480 ml 240 ml # Voids 2 1 6 2 # Bowel Movements 0 1 0 Objective Remarks GENERAL: Well-nourished, well-developed patient in no apparent distress. CARDIOVASCULAR: Regular rate and rhythm. RESPIRATORY: No accessory muscle use. CTAB. MUSCULOSKELETAL: 2+ left distal radial pulse. Patient has pain in the left shoulder with active flexion. No tenderness to palpation over left trapezius muscles. No pain over the left biceps tendon. Fracture boot right lower extremity. Capillary refill normal in digits of right foot. NEUROLOGICAL: Awake and alert. Full legal counsel strength left hand. Normal speech. Procedures 04/30/16: Removal of deep hardware, open reduction internal fixation right tibia nonunion, open reduction internal fixation right fibula nonunion, iliac crest bone grafting with stem cell graft Urinary Catheter: No Vascular Central Line Catheter: No A/P Problem List: (1) Tibia/fibula fracture ICD Code: S82.209A Status: Acute (2) Shoulder pain, left ICD Code: M25.512 Status: Acute Assessment and Plan Right distal tibia/fibula nonunion Status post surgical intervention with removal of deep hardware, open reduction internal fixation right tibia nonunion, open reduction internal fixation of fibula nonunion, iliac crest bone grafting with stem cell graft. Strict nonweightbearing right lower extremity for 3 months postop, elevation, maintain splint Orthopedic following for management and care. Fracture boot placed on 06/17. Patient to wear boot at all times except for PT and showers. PT to work on stretching ankle. Pain control with Tylenol Ortho PA last evaluated patient on 07/02/16 L shoulder pain: Patient complains of this periodically. Shoulder is visible on previous chest x-ray with no fracture evident. Patient has adequate shoulder motion although experiences pain. -Continue Motrin -Add Bengay and Norflex as needed DVT prevention Lovenox was discontinued as patient is ambulatory with crutches. Patient assured me he will ambulate multiple times per day. Discharge Planning Patient must be cleared by orthopedics for discharge. Problem Qualifiers (1) Tibia/fibula fracture: Kelli Barton Jul 10, 2016 09:24
[2016-07-10] MEDS ORDERED: MENTHOL/METHYL SALICYLATE OINT 30 GM TUBE TOP PRN (10:00)
[2016-07-10] MEDS ORDERED: ORPHENADRINE CITRATE 100 MG SUSTAINED RELEASE TAB PO PRN (10:00)
[2016-07-10] MEDS: CALCIUM CARBONATE 500 MG CHEWABLE TAB CHEW PRN (10:52)
[2016-07-10 20:00] VITALS: BP 140/76; PULSE 65; RESP 18; TEMP 97.9; O2SAT 97
[2016-07-11] MEDS: ACETAMINOPHEN 325 MG TAB PO PRN (05:24)
[2016-07-11 08:00] VITALS: BP_SYST 108; BP_SYST 121; BP_DIAS 73; BP_DIAS 82; PULSE 69; PULSE 79; RESP 16; TEMP 98.8; O2SAT 94
[2016-07-11] MEDS: CALCIUM/VITAMIN D 250 MG/125 U TAB PO SCH ×3 (08:27→17:51)
[2016-07-11] MEDS: CHOLECALCIFEROL (VIT D3) 1000 UNIT TAB PO SCH (08:27)
--- NOTE | 2016-07-11 09:38 | HHI.PR ---
Subjective Remarks Follow-up status post ORIF right lower extremity. Patient again complains of his left shoulder hurting him at night. He states he is able to fall sleep but the pain woke him up. He did try the BenGay and Flexeril, but he states it is hard to tell if it helped. He denies any pain currently stating the Motrin and Tylenol he took this morning helped. Objective Vitals Vital Signs Date Time Temp Pulse Resp B/P Pulse Ox O2 Delivery O2 Flow Rate FiO2 07/10/16 20:00 97.9 65 18 140/76 97 I/O 07/10/16 07/10/16 07/10/16 07/11/16 07/11/16 07/11/16 07:00 15:00 23:00 07:00 15:00 23:00 Intake Total 240 ml 1500 ml 100 ml Balance 240 ml 1500 ml 100 ml Intake Oral 240 ml 1500 ml 100 ml # Voids 2 4 5 # Bowel Movements 0 1 0 Objective Remarks GENERAL: Well-nourished, well-developed patient in no apparent distress. CARDIOVASCULAR: Regular rate and rhythm. RESPIRATORY: No accessory muscle use. CTAB. MUSCULOSKELETAL: 2+ left distal radial pulse. Fracture boot right lower extremity. Capillary refill normal in digits of right foot. NEUROLOGICAL: Awake and alert. Normal speech. Procedures 04/30/16: Removal of deep hardware, open reduction internal fixation right tibia nonunion, open reduction internal fixation right fibula nonunion, iliac crest bone grafting with stem cell graft Urinary Catheter: No Vascular Central Line Catheter: No A/P Problem List: (1) Tibia/fibula fracture ICD Code: S82.209A Status: Acute (2) Shoulder pain, left ICD Code: M25.512 Status: Acute Assessment and Plan Right distal tibia/fibula nonunion Status post surgical intervention with removal of deep hardware, open reduction internal fixation right tibia nonunion, open reduction internal fixation of fibula nonunion, iliac crest bone grafting with stem cell graft. Strict nonweightbearing right lower extremity for 3 months postop, elevation, maintain splint Orthopedic following for management and care. Fracture boot placed on 06/17. Patient to wear boot at all times except for PT and showers. PT to work on stretching ankle. Pain control with Tylenol Ortho PA last evaluated patient on 07/02/16 L shoulder pain: Patient complains of this periodically, primarily occurring at night. Shoulder is visible on previous chest x-ray with no fracture evident. Patient has adequate shoulder motion although experiences pain. -Continue Motrin and Tylenol -Continue Bengay and Norflex as needed DVT prevention Lovenox was discontinued as patient is ambulatory with crutches. Patient assured me he will ambulate multiple times per day. Discharge Planning Patient must be cleared by orthopedics for discharge. Problem Qualifiers (1) Tibia/fibula fracture: Kelli Barton Jul 11, 2016 09:38
[2016-07-11] MEDS: IBUPROFEN 600 MG TAB PO PRN (16:32)
[2016-07-11] MEDS: CALCIUM CARBONATE 500 MG CHEWABLE TAB CHEW PRN (19:22)
[2016-07-11 20:00] VITALS: BP 132/87; PULSE 67; RESP 18; TEMP 96.9; O2SAT 98
[2016-07-12 08:00] VITALS: BP 109/78; PULSE 75; RESP 16; TEMP 97.8; O2SAT 97
[2016-07-12] MEDS: CALCIUM/VITAMIN D 250 MG/125 U TAB PO SCH ×3 (08:26→17:30)
[2016-07-12] MEDS: CHOLECALCIFEROL (VIT D3) 1000 UNIT TAB PO SCH (08:26)
--- NOTE | 2016-07-12 08:30 | HHI.PR ---
Subjective Remarks Patient states BenGay helps his left shoulder pain. Objective Vitals Vital Signs Date Time Temp Pulse Resp B/P Pulse Ox O2 Delivery O2 Flow Rate FiO2 07/12/16 08:00 97.8 75 16 109/78 97 07/11/16 20:00 96.9 67 18 132/87 98 07/11/16 17:32 18 I/O 07/11/16 07/11/16 07/11/16 07/12/16 07/12/16 07/12/16 07:00 15:00 23:00 07:00 15:00 23:00 Intake Total 100 ml 900 ml 480 ml Output Total 300 ml Balance 100 ml 900 ml 180 ml Intake Oral 100 ml 900 ml 480 ml Output Urine Total 300 ml # Voids 5 3 5 # Bowel Movements 0 2 Objective Remarks GENERAL: Well-nourished, well-developed patient in no apparent distress. CARDIOVASCULAR: Regular rate and rhythm. RESPIRATORY: No accessory muscle use. CTAB. MUSCULOSKELETAL: 2+ left distal radial pulse. Fracture boot right lower extremity. Capillary refill normal in digits of right foot. NEUROLOGICAL: Awake and alert. Normal speech. Procedures 04/30/16: Removal of deep hardware, open reduction internal fixation right tibia nonunion, open reduction internal fixation right fibula nonunion, iliac crest bone grafting with stem cell graft Urinary Catheter: No Vascular Central Line Catheter: No A/P Problem List: (1) Tibia/fibula fracture ICD Code: S82.209A Status: Acute (2) Shoulder pain, left ICD Code: M25.512 Status: Acute Assessment and Plan Right distal tibia/fibula nonunion Status post surgical intervention with removal of deep hardware, open reduction internal fixation right tibia nonunion, open reduction internal fixation of fibula nonunion, iliac crest bone grafting with stem cell graft. Strict nonweightbearing right lower extremity for 3 months postop, elevation, maintain splint Orthopedic following for management and care. Fracture boot placed on 06/17. Patient to wear boot at all times except for PT and showers. PT to work on stretching ankle. Pain control with Tylenol Ortho PA last evaluated patient on 07/02/16 L shoulder pain: Patient complains of this periodically, primarily occurring at night. Shoulder is visible on previous chest x-ray with no fracture evident. Patient has adequate shoulder motion although experiences pain. -Continue Motrin and Tylenol -Continue Bengay and Norflex as needed DVT prevention Lovenox was discontinued as patient is ambulatory with crutches. Patient assured me he will ambulate multiple times per day. Discharge Planning Patient must be cleared by orthopedics for discharge. Problem Qualifiers (1) Tibia/fibula fracture: Kelli Barton Jul 12, 2016 08:30
[2016-07-12] MEDS: CALCIUM CARBONATE 500 MG CHEWABLE TAB CHEW PRN (15:50)
[2016-07-12] MEDS: ACETAMINOPHEN 325 MG TAB PO PRN (18:53)
[2016-07-12 20:00] VITALS: BP 133/84; PULSE 74; RESP 18; TEMP 98.3; O2SAT 97
[2016-07-13] MEDS: IBUPROFEN 600 MG TAB PO PRN ×2 (09:15→17:01)
[2016-07-13] MEDS: CHOLECALCIFEROL (VIT D3) 1000 UNIT TAB PO SCH (09:16)
[2016-07-13] MEDS: CALCIUM/VITAMIN D 250 MG/125 U TAB PO SCH ×3 (09:16→17:01)
[2016-07-13] MEDS: CALCIUM CARBONATE 500 MG CHEWABLE TAB CHEW PRN (11:30)
--- NOTE | 2016-07-13 13:14 | HHI.PR ---
Subjective Remarks No acute complaints. No change in clinical status. Objective Vitals Vital Signs Date Time Temp Pulse Resp B/P Pulse Ox O2 Delivery O2 Flow Rate FiO2 07/12/16 20:00 98.3 74 18 133/84 97 I/O 07/12/16 07/12/16 07/12/16 07/13/16 07/13/16 07/13/16 07:00 15:00 23:00 07:00 15:00 23:00 Intake Total 480 ml 900 ml Output Total 300 ml Balance 180 ml 900 ml Intake Oral 480 ml 900 ml Output Urine Total 300 ml # Voids 5 3 3 # Bowel Movements 2 1 Objective Remarks GENERAL: Well-nourished, well-developed patient in no apparent distress. CARDIOVASCULAR: Regular rate and rhythm. RESPIRATORY: No accessory muscle use. CTAB. MUSCULOSKELETAL: 2+ left distal radial pulse. No tenderness to palpation over L shoulder. Fracture boot right lower extremity. Capillary refill normal in digits of right foot. NEUROLOGICAL: Awake and alert. Sensation grossly intact over digits of right foot. Normal speech. Procedures 04/30/16: Removal of deep hardware, open reduction internal fixation right tibia nonunion, open reduction internal fixation right fibula nonunion, iliac crest bone grafting with stem cell graft Urinary Catheter: No Vascular Central Line Catheter: No A/P Problem List: (1) Tibia/fibula fracture ICD Code: S82.209A Status: Acute (2) Shoulder pain, left ICD Code: M25.512 Status: Acute Assessment and Plan Right distal tibia/fibula nonunion Status post surgical intervention with removal of deep hardware, open reduction internal fixation right tibia nonunion, open reduction internal fixation of fibula nonunion, iliac crest bone grafting with stem cell graft. Strict nonweightbearing right lower extremity for 3 months postop, elevation, maintain splint Orthopedic following for management and care. Fracture boot placed on 06/17. Patient to wear boot at all times except for PT and showers. PT to work on stretching ankle. Pain control with Tylenol Ortho PA last evaluated patient on 07/02/16 L shoulder pain: Patient complains of this periodically, primarily occurring at night. Shoulder is visible on previous chest x-ray with no fracture evident. Patient has adequate shoulder motion although experiences pain. -Continue Motrin, Tylenol, Bengay, and Norflex as needed. DVT prevention Lovenox was discontinued as patient is ambulatory with crutches. Patient assured me he will ambulate multiple times per day. Discharge Planning Patient must be cleared by orthopedics for discharge. Problem Qualifiers (1) Tibia/fibula fracture: Kelli Barton Jul 13, 2016 13:14
[2016-07-13 14:33] VITALS: BP 120/81; PULSE 77; RESP 20; TEMP 98; O2SAT 99
[2016-07-13 20:00] VITALS: BP 139/84; PULSE 85; RESP 16; TEMP 98.1; O2SAT 97
[2016-07-14 08:00] VITALS: BP 148/85; PULSE 78; RESP 18; TEMP 98.5; O2SAT 97
[2016-07-14] MEDS: CALCIUM/VITAMIN D 250 MG/125 U TAB PO SCH ×3 (08:41→17:06)
[2016-07-14] MEDS: CHOLECALCIFEROL (VIT D3) 1000 UNIT TAB PO SCH (08:41)
--- NOTE | 2016-07-14 10:16 | HHI.PR ---
Subjective Remarks Patient seen and examined today. Patient denies any new complaints. No change in clinical status. Awaiting case management for discharge planning Objective Vitals Vital Signs Date Time Temp Pulse Resp B/P Pulse Ox O2 Delivery O2 Flow Rate FiO2 07/14/16 08:00 98.5 78 18 148/85 97 07/13/16 20:00 98.1 85 16 139/84 97 07/13/16 14:33 98.0 77 20 120/81 99 I/O 07/13/16 07/13/16 07/13/16 07/14/16 07/14/16 07/14/16 07:00 15:00 23:00 07:00 15:00 23:00 Intake Total 520 ml 480 ml 480 ml Balance 520 ml 480 ml 480 ml Intake Oral 520 ml 480 ml 480 ml # Voids 3 3 2 # Bowel Movements 1 1 0 Objective Remarks GENERAL: Well-developed, well-nourished, in no acute distress. alert and orientated HEENT: Head is normocephalic without any lesions or masses noted. Facial features are symmetric. Eyes: Extraocular muscles are intact. Conjunctivae were clear. NECK: Trachea midline no deviation. CARDIAC: Regular rhythm, regular rate. S1/S2 are heard. No murmurs gallops or rubs. LUNGS: Clear to auscultation bilaterally. No wheeze, rhonchi or rales. No use of accessory muscles on inspiration or expiration. ABDOMEN: Soft, nontender. Nondistended. Bowel sounds heard in all 4 quadrants. No organomegaly or masses. Negative rebound, negative guarding EXTREMITIES: No edema,. No cyanosis or clubbing. Right lower extremity is in splint NEUROLOGY: Mood and affect appear appropriate. Cranial nerves II through XII grossly intact. Moving all extremities, speech is clear Procedures 04/30/16: Removal of deep hardware, open reduction internal fixation right tibia nonunion, open reduction internal fixation right fibula nonunion, iliac crest bone grafting with stem cell graft Urinary Catheter: No Vascular Central Line Catheter: No A/P Assessment and Plan Right distal tibia/fibula nonunion Status postsurgical intervention with removal of deep hardware, open reduction internal fixation right tibia nonunion, open reduction internal fixation of fibula nonunion, iliac crest bone grafting with stem cell graft Strict nonweightbearing right lower extremity, 3 months from date of surgery patient in fracture boot Orthopedic following for management and care, last seen 06/24/16 Removed right hip petros 05/21/16 Pain control: Tylenol every 6 hours as needed Bilateral shoulder pain, likely secondary to crutch use ibuprofen 600 mg every 8 hours as needed Reviewed previous admission x-rays, no shoulder x-rays have been performed. However shoulders are visualized in multiple radiology exams which did not indicate any abnormalities DVT prevention Patient ambulating Discharge Planning Case management managing discharge planning. Case management pursuing homeless care home for discharge planning. However, patient states that he will not stay in a homeless care home. That he return to his place of residence. Because of this, orthopedic does not feel that it's safe discharge. Patient remained in the hospital until orthopedic clears patient for discharge. Rufino Campos Jul 14, 2016 10:15
[2016-07-14] MEDS: ALUMINUM/MAGNESIUM/SIMETH 30 ML CUP PO PRN (11:13)
[2016-07-14] MEDS: PANTOPRAZOLE SOD 40 MG DELAYED RELEASE TAB PO SCH (14:51)
[2016-07-14] MEDS: IBUPROFEN 600 MG TAB PO PRN (18:27)
[2016-07-14 20:00] VITALS: BP 134/96; PULSE 70; RESP 16; TEMP 98.1; O2SAT 96
[2016-07-15] MEDS: ACETAMINOPHEN 325 MG TAB PO PRN ×2 (04:48→17:00)
[2016-07-15] MEDS: PANTOPRAZOLE SOD 40 MG DELAYED RELEASE TAB PO SCH (09:17)
[2016-07-15] MEDS: CALCIUM/VITAMIN D 250 MG/125 U TAB PO SCH ×3 (09:17→17:00)
[2016-07-15] MEDS: CHOLECALCIFEROL (VIT D3) 1000 UNIT TAB PO SCH (09:18)
[2016-07-15 10:14] VITALS: BP 118/86; PULSE 83; RESP 18; TEMP 97.6; O2SAT 97
--- NOTE | 2016-07-15 10:27 | HHI.PR ---
Subjective Remarks Patient seen and examined today. Patient states that he did have some heartburn yesterday with minimal relief from Tums, Maalox. Patient started on Protonix and patient has not had any recurrent heartburn Objective Vitals Vital Signs Date Time Temp Pulse Resp B/P Pulse Ox O2 Delivery O2 Flow Rate FiO2 07/15/16 10:14 97.6 83 18 118/86 97 07/14/16 20:00 98.1 70 16 134/96 96 I/O 07/14/16 07/14/16 07/14/16 07/15/16 07/15/16 07/15/16 07:00 15:00 23:00 07:00 15:00 23:00 Intake Total 480 ml 480 ml 600 ml 240 ml Balance 480 ml 480 ml 600 ml 240 ml Intake Oral 480 ml 480 ml 600 ml 240 ml # Voids 2 3 3 2 # Bowel Movements 0 0 0 Objective Remarks GENERAL: Well-developed, well-nourished, in no acute distress. alert and orientated HEENT: Head is normocephalic without any lesions or masses noted. Facial features are symmetric. Eyes: Extraocular muscles are intact. Conjunctivae were clear. NECK: Trachea midline no deviation. CARDIAC: Regular rhythm, regular rate. S1/S2 are heard. No murmurs gallops or rubs. LUNGS: Clear to auscultation bilaterally. No wheeze, rhonchi or rales. No use of accessory muscles on inspiration or expiration. ABDOMEN: Soft, nontender. Nondistended. Bowel sounds heard in all 4 quadrants. No organomegaly or masses. Negative rebound, negative guarding EXTREMITIES: No edema,. No cyanosis or clubbing. Right lower extremity is in splint NEUROLOGY: Mood and affect appear appropriate. Cranial nerves II through XII grossly intact. Moving all extremities, speech is clear Procedures 04/30/16: Removal of deep hardware, open reduction internal fixation right tibia nonunion, open reduction internal fixation right fibula nonunion, iliac crest bone grafting with stem cell graft Urinary Catheter: No Vascular Central Line Catheter: No A/P Assessment and Plan Right distal tibia/fibula nonunion Status postsurgical intervention with removal of deep hardware, open reduction internal fixation right tibia nonunion, open reduction internal fixation of fibula nonunion, iliac crest bone grafting with stem cell graft Strict nonweightbearing right lower extremity, 3 months from date of surgery patient in fracture boot Orthopedic following for management and care Removed right hip petros 05/21/16 Pain control: Tylenol every 6 hours as needed Bilateral shoulder pain, likely secondary to crutch use ibuprofen 600 mg every 8 hours as needed Reviewed previous admission x-rays, no shoulder x-rays have been performed. However shoulders are visualized in multiple radiology exams which did not indicate any abnormalities Heartburn, Continue Tums/Maalox Continue Protonix 40 mg daily DVT prevention Patient ambulating Discharge Planning Case management managing discharge planning. Case management pursuing homeless residential for discharge planning. However, patient states that he will not stay in a homeless residential. That he return to his place of residence. Because of this, orthopedic does not feel that it's safe discharge. Patient remained in the hospital until orthopedic clears patient for discharge. Rufino Campos Jul 15, 2016 10:27
[2016-07-15] MEDS: IBUPROFEN 600 MG TAB PO PRN ×2 (12:29→20:48)
[2016-07-15 20:00] VITALS: BP 129/87; PULSE 80; RESP 18; TEMP 98.1; O2SAT 96
[2016-07-16 08:00] VITALS: BP 128/82; PULSE 84; RESP 20; TEMP 96.9; O2SAT 96
[2016-07-16] MEDS: CALCIUM/VITAMIN D 250 MG/125 U TAB PO SCH ×3 (08:25→17:26)
[2016-07-16] MEDS: CHOLECALCIFEROL (VIT D3) 1000 UNIT TAB PO SCH (08:25)
[2016-07-16] MEDS: PANTOPRAZOLE SOD 40 MG DELAYED RELEASE TAB PO SCH (08:25)
[2016-07-16] MEDS: IBUPROFEN 600 MG TAB PO PRN ×2 (08:27→20:16)
--- NOTE | 2016-07-16 10:21 | HHI.PR ---
Subjective Remarks Patient seen and examined today. Patient denies any new complaints. No change in clinical status. This record was reviewed, no acute events overnight, no change in present treatment plan. Objective Vitals Vital Signs Date Time Temp Pulse Resp B/P Pulse Ox O2 Delivery O2 Flow Rate FiO2 07/16/16 08:00 96.9 84 20 128/82 96 07/15/16 20:00 98.1 80 18 129/87 96 07/15/16 18:51 20 I/O 07/15/16 07/15/16 07/15/16 07/16/16 07/16/16 07/16/16 07:00 15:00 23:00 07:00 15:00 23:00 Intake Total 240 ml 600 ml 240 ml Balance 240 ml 600 ml 240 ml Intake Oral 240 ml 600 ml 240 ml # Voids 2 3 2 # Bowel Movements 0 1 0 Objective Remarks GENERAL: Well-developed, well-nourished, in no acute distress. alert and orientated HEENT: Head is normocephalic without any lesions or masses noted. Facial features are symmetric. Eyes: Extraocular muscles are intact. Conjunctivae were clear. NECK: Trachea midline no deviation. CARDIAC: Regular rhythm, regular rate. S1/S2 are heard. No murmurs gallops or rubs. LUNGS: Clear to auscultation bilaterally. No wheeze, rhonchi or rales. No use of accessory muscles on inspiration or expiration. ABDOMEN: Soft, nontender. Nondistended. Bowel sounds heard in all 4 quadrants. No organomegaly or masses. Negative rebound, negative guarding EXTREMITIES: No edema,. No cyanosis or clubbing. Right lower extremity is in splint NEUROLOGY: Mood and affect appear appropriate. Cranial nerves II through XII grossly intact. Moving all extremities, speech is clear Procedures 04/30/16: Removal of deep hardware, open reduction internal fixation right tibia nonunion, open reduction internal fixation right fibula nonunion, iliac crest bone grafting with stem cell graft Urinary Catheter: No Vascular Central Line Catheter: No A/P Assessment and Plan Right distal tibia/fibula nonunion Status postsurgical intervention with removal of deep hardware, open reduction internal fixation right tibia nonunion, open reduction internal fixation of fibula nonunion, iliac crest bone grafting with stem cell graft Strict nonweightbearing right lower extremity, 3 months from date of surgery patient in fracture boot Orthopedic following for management and care Removed right hip petros 05/21/16 Pain control: Tylenol every 6 hours as needed Bilateral shoulder pain, likely secondary to crutch use ibuprofen 600 mg every 8 hours as needed Reviewed previous admission x-rays, no shoulder x-rays have been performed. However shoulders are visualized in multiple radiology exams which did not indicate any abnormalities Heartburn, Continue Tums/Maalox Continue Protonix 40 mg daily DVT prevention Patient ambulating Discharge Planning Discharge planning per case management Rufino Campos Jul 16, 2016 10:21
[2016-07-16] MEDS: ERGOCALCIFEROL (VIT D2) 50,000 UNIT CAP PO SCH (11:52)
[2016-07-16] MEDS: ACETAMINOPHEN 325 MG TAB PO PRN (17:30)
[2016-07-16 20:00] VITALS: BP 135/88; PULSE 71; RESP 18; TEMP 97.6; O2SAT 96
[2016-07-17 08:00] VITALS: BP 141/85; PULSE 80; RESP 16; TEMP 97; O2SAT 98
[2016-07-17] MEDS: CALCIUM/VITAMIN D 250 MG/125 U TAB PO SCH ×3 (09:01→17:50)
[2016-07-17] MEDS: PANTOPRAZOLE SOD 40 MG DELAYED RELEASE TAB PO SCH (09:01)
[2016-07-17] MEDS: CHOLECALCIFEROL (VIT D3) 1000 UNIT TAB PO SCH (09:01)
[2016-07-17] MEDS: IBUPROFEN 600 MG TAB PO PRN (09:05)
[2016-07-17 09:59] VITALS: BP 139/93; PULSE 66
--- NOTE | 2016-07-17 10:17 | HHI.PR ---
Subjective Remarks Patient seen and examined today. Patient denies any new complaints. No change in clinical status. This record was reviewed, no acute events overnight, present treatment plan is unchanged. Awaiting case management for discharge planning Objective Vitals Vital Signs Date Time Temp Pulse Resp B/P Pulse Ox O2 Delivery O2 Flow Rate FiO2 07/17/16 09:59 66 139/93 07/17/16 08:00 97.0 80 16 141/85 98 07/16/16 21:16 18 07/16/16 20:00 97.6 71 18 135/88 96 07/16/16 18:46 14 I/O 07/16/16 07/16/16 07/16/16 07/17/16 07/17/16 07/17/16 07:00 15:00 23:00 07:00 15:00 23:00 Intake Total 1000 ml 420 ml 540 ml Balance 1000 ml 420 ml 540 ml Intake Oral 1000 ml 420 ml 540 ml # Voids 5 2 3 # Bowel Movements 1 0 0 Objective Remarks GENERAL: Well-developed, well-nourished, in no acute distress. alert and orientated HEENT: Head is normocephalic without any lesions or masses noted. Facial features are symmetric. Eyes: Extraocular muscles are intact. Conjunctivae were clear. NECK: Trachea midline no deviation. CARDIAC: Regular rhythm, regular rate. S1/S2 are heard. No murmurs gallops or rubs. LUNGS: Clear to auscultation bilaterally. No wheeze, rhonchi or rales. No use of accessory muscles on inspiration or expiration. ABDOMEN: Soft, nontender. Nondistended. Bowel sounds heard in all 4 quadrants. No organomegaly or masses. Negative rebound, negative guarding EXTREMITIES: No edema,. No cyanosis or clubbing. Right lower extremity is in splint NEUROLOGY: Mood and affect appear appropriate. Cranial nerves II through XII grossly intact. Moving all extremities, speech is clear Procedures 04/30/16: Removal of deep hardware, open reduction internal fixation right tibia nonunion, open reduction internal fixation right fibula nonunion, iliac crest bone grafting with stem cell graft Urinary Catheter: No Vascular Central Line Catheter: No A/P Assessment and Plan Right distal tibia/fibula nonunion Status postsurgical intervention with removal of deep hardware, open reduction internal fixation right tibia nonunion, open reduction internal fixation of fibula nonunion, iliac crest bone grafting with stem cell graft Strict nonweightbearing right lower extremity, 3 months from date of surgery patient in fracture boot Orthopedic following for management and care Removed right hip petros 05/21/16 Pain control: Tylenol every 6 hours as needed Bilateral shoulder pain, likely secondary to crutch use ibuprofen 600 mg every 8 hours as needed Reviewed previous admission x-rays, no shoulder x-rays have been performed. However shoulders are visualized in multiple radiology exams which did not indicate any abnormalities Heartburn, Continue Tums/Maalox Continue Protonix 40 mg daily DVT prevention Patient ambulating Discharge Planning Discharge planning per case management Rufino Campos Jul 17, 2016 10:17
[2016-07-17 22:00] VITALS: BP 126/81; PULSE 66; RESP 16; TEMP 98.3; O2SAT 98
[2016-07-18 08:00] VITALS: BP 100/72; PULSE 72; RESP 16; TEMP 98; O2SAT 97
[2016-07-18] MEDS: IBUPROFEN 600 MG TAB PO PRN (08:01)
[2016-07-18] MEDS: CALCIUM/VITAMIN D 250 MG/125 U TAB PO SCH ×3 (08:01→17:09)
[2016-07-18] MEDS: CHOLECALCIFEROL (VIT D3) 1000 UNIT TAB PO SCH (08:01)
[2016-07-18] MEDS: PANTOPRAZOLE SOD 40 MG DELAYED RELEASE TAB PO SCH (08:01)
--- NOTE | 2016-07-18 10:30 | HHI.PR ---
Subjective Remarks Patient seen and examined today. Patient denies any new complaints. No change in clinical status. This record was reviewed, no acute events overnight, no change present treatment plan. Awaiting case management for discharge planning Objective Vitals Vital Signs Date Time Temp Pulse Resp B/P Pulse Ox O2 Delivery O2 Flow Rate FiO2 07/18/16 08:00 98.0 72 16 100/72 97 07/17/16 22:00 98.3 66 16 126/81 98 I/O 07/17/16 07/17/16 07/17/16 07/18/16 07/18/16 07/18/16 07:00 15:00 23:00 07:00 15:00 23:00 Intake Total 540 ml 1110 ml Balance 540 ml 1110 ml Intake Oral 540 ml 1110 ml # Voids 3 3 4 # Bowel Movements 0 1 Objective Remarks GENERAL: Well-developed, well-nourished, in no acute distress. alert and orientated HEENT: Head is normocephalic without any lesions or masses noted. Facial features are symmetric. Eyes: Extraocular muscles are intact. Conjunctivae were clear. NECK: Trachea midline no deviation. CARDIAC: Regular rhythm, regular rate. S1/S2 are heard. No murmurs gallops or rubs. LUNGS: Clear to auscultation bilaterally. No wheeze, rhonchi or rales. No use of accessory muscles on inspiration or expiration. ABDOMEN: Soft, nontender. Nondistended. Bowel sounds heard in all 4 quadrants. No organomegaly or masses. Negative rebound, negative guarding EXTREMITIES: No edema,. No cyanosis or clubbing. Right lower extremity is in splint NEUROLOGY: Mood and affect appear appropriate. Cranial nerves II through XII grossly intact. Moving all extremities, speech is clear Procedures 04/30/16: Removal of deep hardware, open reduction internal fixation right tibia nonunion, open reduction internal fixation right fibula nonunion, iliac crest bone grafting with stem cell graft Urinary Catheter: No Vascular Central Line Catheter: No A/P Assessment and Plan Right distal tibia/fibula nonunion Status postsurgical intervention with removal of deep hardware, open reduction internal fixation right tibia nonunion, open reduction internal fixation of fibula nonunion, iliac crest bone grafting with stem cell graft Strict nonweightbearing right lower extremity, 3 months from date of surgery patient in fracture boot Orthopedic following for management and care Removed right hip petros 05/21/16 Pain control: Tylenol every 6 hours as needed Bilateral shoulder pain, likely secondary to crutch use ibuprofen 600 mg every 8 hours as needed Reviewed previous admission x-rays, no shoulder x-rays have been performed. However shoulders are visualized in multiple radiology exams which did not indicate any abnormalities Heartburn, Continue Tums/Maalox Continue Protonix 40 mg daily DVT prevention Patient ambulating Discharge Planning Discharge planning per case management Rufino Campos Jul 18, 2016 10:30
[2016-07-18] MEDS: ACETAMINOPHEN 325 MG TAB PO PRN (18:36)
[2016-07-18 20:00] VITALS: BP 115/84; PULSE 78; RESP 16; TEMP 96.5; O2SAT 96
[2016-07-19 08:00] VITALS: BP 116/88; PULSE 89; RESP 17; TEMP 97.6; O2SAT 95
[2016-07-19] MEDS: CHOLECALCIFEROL (VIT D3) 1000 UNIT TAB PO SCH (08:52)
[2016-07-19] MEDS: IBUPROFEN 600 MG TAB PO PRN ×2 (08:52→20:14)
[2016-07-19] MEDS: CALCIUM/VITAMIN D 250 MG/125 U TAB PO SCH ×3 (08:52→16:33)
[2016-07-19] MEDS: PANTOPRAZOLE SOD 40 MG DELAYED RELEASE TAB PO SCH (08:52)
--- NOTE | 2016-07-19 10:52 | HHI.PR ---
Subjective Remarks This record was reviewed, no acute events overnight, no change in present treatment plan. Patient seen and examined today. Patient denies any new complaints. Awaiting case management for discharge planning Objective Vitals Vital Signs Date Time Temp Pulse Resp B/P Pulse Ox O2 Delivery O2 Flow Rate FiO2 07/19/16 09:58 14 07/19/16 08:00 97.6 89 17 116/88 95 07/18/16 20:00 96.5 78 16 115/84 96 07/18/16 19:50 18 I/O 07/18/16 07/18/16 07/18/16 07/19/16 07/19/16 07/19/16 07:00 15:00 23:00 07:00 15:00 23:00 Intake Total 700 ml 720 ml 480 ml Balance 700 ml 720 ml 480 ml Intake Oral 700 ml 720 ml 480 ml # Voids 4 4 3 1 # Bowel Movements 1 0 0 Objective Remarks GENERAL: Well-developed, well-nourished, in no acute distress. alert and orientated HEENT: Head is normocephalic without any lesions or masses noted. Facial features are symmetric. Eyes: Extraocular muscles are intact. Conjunctivae were clear. NECK: Trachea midline no deviation. CARDIAC: Regular rhythm, regular rate. S1/S2 are heard. No murmurs gallops or rubs. LUNGS: Clear to auscultation bilaterally. No wheeze, rhonchi or rales. No use of accessory muscles on inspiration or expiration. ABDOMEN: Soft, nontender. Nondistended. Bowel sounds heard in all 4 quadrants. No organomegaly or masses. Negative rebound, negative guarding EXTREMITIES: No edema,. No cyanosis or clubbing. Right lower extremity is in splint NEUROLOGY: Mood and affect appear appropriate. Cranial nerves II through XII grossly intact. Moving all extremities, speech is clear Procedures 04/30/16: Removal of deep hardware, open reduction internal fixation right tibia nonunion, open reduction internal fixation right fibula nonunion, iliac crest bone grafting with stem cell graft Urinary Catheter: No Vascular Central Line Catheter: No A/P Assessment and Plan Right distal tibia/fibula nonunion Status postsurgical intervention with removal of deep hardware, open reduction internal fixation right tibia nonunion, open reduction internal fixation of fibula nonunion, iliac crest bone grafting with stem cell graft Strict nonweightbearing right lower extremity, 3 months from date of surgery patient in fracture boot Orthopedic following for management and care Removed right hip petros 05/21/16 Pain control: Tylenol every 6 hours as needed Bilateral shoulder pain, likely secondary to crutch use ibuprofen 600 mg every 8 hours as needed Reviewed previous admission x-rays, no shoulder x-rays have been performed. However shoulders are visualized in multiple radiology exams which did not indicate any abnormalities Heartburn, Continue Tums/Maalox Continue Protonix 40 mg daily DVT prevention Patient ambulating Discharge Planning Discharge planning per case management Rufino Campos Jul 19, 2016 10:52
[2016-07-19] MEDS: ACETAMINOPHEN 325 MG TAB PO PRN (16:33)
[2016-07-19 20:00] VITALS: BP 125/90; PULSE 75; RESP 14; TEMP 98.1; O2SAT 98
[2016-07-20] MEDS: CALCIUM/VITAMIN D 250 MG/125 U TAB PO SCH ×3 (07:57→17:32)
[2016-07-20] MEDS: ACETAMINOPHEN 325 MG TAB PO PRN (07:57)
[2016-07-20] MEDS: PANTOPRAZOLE SOD 40 MG DELAYED RELEASE TAB PO SCH (07:58)
[2016-07-20] MEDS: CHOLECALCIFEROL (VIT D3) 1000 UNIT TAB PO SCH (07:58)
[2016-07-20 08:00] VITALS: BP 114/87; PULSE 66; RESP 16; TEMP 97.3; O2SAT 97
--- NOTE | 2016-07-20 11:20 | HHI.PR ---
Subjective Remarks Patient seen and examined today. Patient denies any new complaints. No change in clinical status. Objective Vitals Vital Signs Date Time Temp Pulse Resp B/P Pulse Ox O2 Delivery O2 Flow Rate FiO2 07/20/16 08:00 97.3 66 16 114/87 97 07/19/16 20:00 98.1 75 14 125/90 98 I/O 07/19/16 07/19/16 07/19/16 07/20/16 07/20/16 07/20/16 07:00 15:00 23:00 07:00 15:00 23:00 Intake Total 480 ml 480 ml 480 ml Balance 480 ml 480 ml 480 ml Intake Oral 480 ml 480 ml 480 ml # Voids 1 5 2 # Bowel Movements 0 0 0 Objective Remarks GENERAL: Well-developed, well-nourished, in no acute distress. alert and orientated HEENT: Head is normocephalic without any lesions or masses noted. Facial features are symmetric. Eyes: Extraocular muscles are intact. Conjunctivae were clear. NECK: Trachea midline no deviation. CARDIAC: Regular rhythm, regular rate. S1/S2 are heard. No murmurs gallops or rubs. LUNGS: Clear to auscultation bilaterally. No wheeze, rhonchi or rales. No use of accessory muscles on inspiration or expiration. ABDOMEN: Soft, nontender. Nondistended. Bowel sounds heard in all 4 quadrants. No organomegaly or masses. Negative rebound, negative guarding EXTREMITIES: No edema,. No cyanosis or clubbing. Right lower extremity is in splint NEUROLOGY: Mood and affect appear appropriate. Cranial nerves II through XII grossly intact. Moving all extremities, speech is clear Procedures 04/30/16: Removal of deep hardware, open reduction internal fixation right tibia nonunion, open reduction internal fixation right fibula nonunion, iliac crest bone grafting with stem cell graft Urinary Catheter: No Vascular Central Line Catheter: No A/P Assessment and Plan Right distal tibia/fibula nonunion Status postsurgical intervention with removal of deep hardware, open reduction internal fixation right tibia nonunion, open reduction internal fixation of fibula nonunion, iliac crest bone grafting with stem cell graft Strict nonweightbearing right lower extremity, 3 months from date of surgery patient in fracture boot Orthopedic following for management and care Removed right hip petros 05/21/16 Pain control: Tylenol every 6 hours as needed Bilateral shoulder pain, likely secondary to crutch use ibuprofen 600 mg every 8 hours as needed Reviewed previous admission x-rays, no shoulder x-rays have been performed. However shoulders are visualized in multiple radiology exams which did not indicate any abnormalities Heartburn, Continue Tums/Maalox Continue Protonix 40 mg daily DVT prevention Patient ambulating Discharge Planning Discharge planning per case management Rufino Campos Jul 20, 2016 11:20
[2016-07-20] MEDS: IBUPROFEN 600 MG TAB PO PRN (17:32)
[2016-07-20 20:00] VITALS: BP 140/96; PULSE 77; RESP 18; TEMP 99; O2SAT 99
[2016-07-21] MEDS: CHOLECALCIFEROL (VIT D3) 1000 UNIT TAB PO SCH (08:16)
[2016-07-21] MEDS: PANTOPRAZOLE SOD 40 MG DELAYED RELEASE TAB PO SCH (08:16)
[2016-07-21] MEDS: ACETAMINOPHEN 325 MG TAB PO PRN (08:16)
[2016-07-21] MEDS: CALCIUM/VITAMIN D 250 MG/125 U TAB PO SCH ×3 (08:19→16:59)
[2016-07-21 11:19] VITALS: BP 152/93; PULSE 62; RESP 20; TEMP 97.8; O2SAT 96
--- NOTE | 2016-07-21 12:25 | HHI.PR ---
Subjective Remarks No acute complaints. No change in clinical status. Objective Vitals Vital Signs Date Time Temp Pulse Resp B/P Pulse Ox O2 Delivery O2 Flow Rate FiO2 07/21/16 11:19 97.8 62 20 152/93 96 07/21/16 09:17 16 07/20/16 20:00 99.0 77 18 140/96 99 I/O 07/20/16 07/20/16 07/20/16 07/21/16 07/21/16 07/21/16 07:00 15:00 23:00 07:00 15:00 23:00 Intake Total 480 ml 720 ml 680 ml 120 ml Balance 480 ml 720 ml 680 ml 120 ml Intake Oral 480 ml 720 ml 680 ml 120 ml # Voids 2 4 2 0 # Bowel Movements 0 1 0 0 Objective Remarks GENERAL: Well-nourished, well-developed patient in no apparent distress. CARDIOVASCULAR: Regular rate and rhythm. RESPIRATORY: No accessory muscle use. CTAB. MUSCULOSKELETAL: Fracture boot right lower extremity. Capillary refill normal in digits of right foot. NEUROLOGICAL: Awake and alert. Normal speech. Procedures 04/30/16: Removal of deep hardware, open reduction internal fixation right tibia nonunion, open reduction internal fixation right fibula nonunion, iliac crest bone grafting with stem cell graft Urinary Catheter: No Vascular Central Line Catheter: No A/P Problem List: (1) Tibia/fibula fracture ICD Code: S82.209A Status: Acute (2) Shoulder pain, left ICD Code: M25.512 Status: Acute Assessment and Plan Right distal tibia/fibula nonunion Status post surgical intervention with removal of deep hardware, open reduction internal fixation right tibia nonunion, open reduction internal fixation of fibula nonunion, iliac crest bone grafting with stem cell graft. Strict nonweightbearing right lower extremity for 3 months postop, elevation, maintain splint Orthopedic following for management and care. Fracture boot placed on 06/17. Patient to wear boot at all times except for PT and showers. PT to work on stretching ankle. Pain control with Tylenol Ortho PA last evaluated patient on 07/02/16 L shoulder pain: Patient complains of this periodically, primarily occurring at night. Shoulder is visible on previous chest x-ray with no fracture evident. Patient has adequate shoulder motion although experiences pain. -Continue Motrin, Tylenol, Bengay, and Norflex as needed. DVT prevention Lovenox was discontinued as patient is ambulatory with crutches. Patient assured me he will ambulate multiple times per day. Discharge Planning Patient refused evaluation by [facility]. Patient must be cleared by orthopedics for discharge back to prior living situation in tent. Problem Qualifiers (1) Tibia/fibula fracture: Kelli Barton Jul 21, 2016 12:25
[2016-07-21 20:00] VITALS: BP 134/87; PULSE 91; RESP 20; TEMP 98.1; O2SAT 95
[2016-07-22] MEDS: IBUPROFEN 600 MG TAB PO PRN (07:34)
[2016-07-22] MEDS: CHOLECALCIFEROL (VIT D3) 1000 UNIT TAB PO SCH (07:34)
[2016-07-22] MEDS: CALCIUM/VITAMIN D 250 MG/125 U TAB PO SCH ×3 (07:34→16:17)
[2016-07-22] MEDS: PANTOPRAZOLE SOD 40 MG DELAYED RELEASE TAB PO SCH (07:34)
[2016-07-22 08:37] VITALS: BP 118/86; PULSE 83; RESP 14; TEMP 97.3; O2SAT 97
--- NOTE | 2016-07-22 12:59 | HHI.PR ---
Subjective Remarks Patient admits to having shoulder pain earlier but states it feels better once he moves around. Objective Vitals Vital Signs Date Time Temp Pulse Resp B/P Pulse Ox O2 Delivery O2 Flow Rate FiO2 07/22/16 08:43 14 07/22/16 08:37 97.3 83 14 118/86 97 07/21/16 20:00 98.1 91 20 134/87 95 I/O 07/21/16 07/21/16 07/21/16 07/22/16 07/22/16 07/22/16 07:00 15:00 23:00 07:00 15:00 23:00 Intake Total 120 ml 1000 ml 680 ml 520 ml Output Total 400 ml Balance 120 ml 1000 ml 680 ml 120 ml Intake Oral 120 ml 1000 ml 680 ml 520 ml Output Urine Total 400 ml # Voids 0 4 3 # Bowel Movements 0 0 0 0 Objective Remarks GENERAL: Well-nourished, well-developed patient in no apparent distress. CARDIOVASCULAR: Regular rate and rhythm. RESPIRATORY: No accessory muscle use. CTAB. MUSCULOSKELETAL: 2+ right DP pulse. NEUROLOGICAL: Awake and alert. Normal speech. Procedures 04/30/16: Removal of deep hardware, open reduction internal fixation right tibia nonunion, open reduction internal fixation right fibula nonunion, iliac crest bone grafting with stem cell graft Urinary Catheter: No Vascular Central Line Catheter: No A/P Problem List: (1) Tibia/fibula fracture ICD Code: S82.209A Status: Acute (2) Shoulder pain, left ICD Code: M25.512 Status: Acute Assessment and Plan Right distal tibia/fibula nonunion Status post surgical intervention with removal of deep hardware, open reduction internal fixation right tibia nonunion, open reduction internal fixation of fibula nonunion, iliac crest bone grafting with stem cell graft. Strict nonweightbearing right lower extremity for 3 months postop, elevation, maintain splint Orthopedic following for management and care. Fracture boot placed on 06/17. Patient to wear boot at all times except for PT and showers. PT to work on stretching ankle. Pain control with Tylenol Ortho PA last evaluated patient on 07/02/16 L shoulder pain: Patient complains of this periodically, primarily occurring at night. Shoulder is visible on previous chest x-ray with no fracture evident. Patient has adequate shoulder motion although experiences pain. -Continue Motrin, Tylenol, Bengay prn. DVT prevention Lovenox was discontinued as patient is ambulatory with crutches. Patient assured me he will ambulate multiple times per day. Discharge Planning Patient refused evaluation by [facility]. Patient must be cleared by orthopedics for discharge back to prior living situation in tent. Problem Qualifiers (1) Tibia/fibula fracture: Kelli Barton Jul 22, 2016 12:59
[2016-07-22] MEDS: ACETAMINOPHEN 325 MG TAB PO PRN (16:17)
[2016-07-22 20:00] VITALS: BP 122/86; PULSE 84; PULSE 86; RESP 16; TEMP 96; O2SAT 97
[2016-07-23] MEDS: PANTOPRAZOLE SOD 40 MG DELAYED RELEASE TAB PO SCH (07:43)
[2016-07-23] MEDS: CALCIUM/VITAMIN D 250 MG/125 U TAB PO SCH ×3 (07:43→16:46)
[2016-07-23] MEDS: CHOLECALCIFEROL (VIT D3) 1000 UNIT TAB PO SCH (07:43)
[2016-07-23 08:45] VITALS: BP 117/78; PULSE 76; RESP 18; TEMP 96.1; O2SAT 96
[2016-07-23] MEDS: ERGOCALCIFEROL (VIT D2) 50,000 UNIT CAP PO SCH (12:20)
--- NOTE | 2016-07-23 13:06 | HHI.PR ---
Subjective Remarks No acute complaints. No change in clinical status. Objective Vitals Vital Signs Date Time Temp Pulse Resp B/P Pulse Ox O2 Delivery O2 Flow Rate FiO2 07/23/16 08:45 96.1 76 18 117/78 96 07/22/16 20:00 96.0 86 16 122/86 97 07/22/16 20:00 96.0 84 16 122/86 97 07/22/16 17:48 14 I/O 07/22/16 07/22/16 07/22/16 07/23/16 07/23/16 07/23/16 07:00 15:00 23:00 07:00 15:00 23:00 Intake Total 520 ml 480 ml 480 ml Output Total 400 ml Balance 120 ml 480 ml 480 ml Intake Oral 520 ml 480 ml 480 ml Output Urine Total 400 ml # Voids 4 2 # Bowel Movements 0 0 0 Objective Remarks GENERAL: Well-nourished, well-developed patient in no apparent distress. CARDIOVASCULAR: Regular rate and rhythm. RESPIRATORY: No accessory muscle use. CTAB. MUSCULOSKELETAL: Fracture boot RLE. 2+ right DP pulse. NEUROLOGICAL: Awake and alert. Normal speech. Procedures 04/30/16: Removal of deep hardware, open reduction internal fixation right tibia nonunion, open reduction internal fixation right fibula nonunion, iliac crest bone grafting with stem cell graft Urinary Catheter: No Vascular Central Line Catheter: No A/P Problem List: (1) Tibia/fibula fracture ICD Code: S82.209A Status: Acute (2) Shoulder pain, left ICD Code: M25.512 Status: Acute Assessment and Plan Right distal tibia/fibula nonunion Status post surgical intervention with removal of deep hardware, open reduction internal fixation right tibia nonunion, open reduction internal fixation of fibula nonunion, iliac crest bone grafting with stem cell graft. Strict nonweightbearing right lower extremity for 3 months postop, elevation, maintain splint Orthopedic following for management and care. Fracture boot placed on 06/17. Patient to wear boot at all times except for PT and showers. PT to work on stretching ankle. Pain control with Tylenol Ortho PA last evaluated patient on 07/02/16. I contacted Rakesh NAVA to see if he will be coming to see patient this week; awaiting response. L shoulder pain: Patient complains of this periodically, primarily occurring at night. Shoulder is visible on previous chest x-ray with no fracture evident. Patient has adequate shoulder motion although experiences pain. -Continue Motrin, Tylenol, Bengay prn. DVT prevention Lovenox was discontinued as patient is ambulatory with crutches. Patient assured me he will ambulate multiple times per day. Discharge Planning Patient refused evaluation by [facility]. Patient must be cleared by orthopedics for discharge back to prior living situation in tent. Problem Qualifiers (1) Tibia/fibula fracture: Kelli Barton Jul 23, 2016 13:06
[2016-07-23 20:00] VITALS: BP 140/90; PULSE 90; RESP 16; TEMP 96.4; O2SAT 96
[2016-07-24 08:00] VITALS: BP 106/69; PULSE 84; RESP 16; TEMP 97.2; O2SAT 98
[2016-07-24] MEDS: CHOLECALCIFEROL (VIT D3) 1000 UNIT TAB PO SCH (08:50)
[2016-07-24] MEDS: PANTOPRAZOLE SOD 40 MG DELAYED RELEASE TAB PO SCH (08:50)
[2016-07-24] MEDS: IBUPROFEN 600 MG TAB PO PRN (08:50)
[2016-07-24] MEDS: CALCIUM/VITAMIN D 250 MG/125 U TAB PO SCH ×3 (09:00→17:32)
--- NOTE | 2016-07-24 09:17 | HHI.PR ---
Subjective Remarks No acute complaints. No change in clinical status. Objective Vitals Vital Signs Date Time Temp Pulse Resp B/P Pulse Ox O2 Delivery O2 Flow Rate FiO2 07/24/16 08:00 97.2 84 16 106/69 98 07/23/16 20:00 96.4 90 16 140/90 96 I/O 07/23/16 07/23/16 07/23/16 07/24/16 07/24/16 07/24/16 07:00 15:00 23:00 07:00 15:00 23:00 Intake Total 480 ml 1130 ml 240 ml Balance 480 ml 1130 ml 240 ml Intake Oral 480 ml 1130 ml 240 ml # Voids 2 6 2 # Bowel Movements 0 2 0 Objective Remarks GENERAL: Well-nourished, well-developed patient in no apparent distress. SKIN: Surgical scar over right lateral malleolus CARDIOVASCULAR: Regular rate and rhythm. MUSCULOSKELETAL: No swelling of the right lower leg. 2+ right DP pulse. NEUROLOGICAL: Awake and alert. Normal speech. Procedures 04/30/16: Removal of deep hardware, open reduction internal fixation right tibia nonunion, open reduction internal fixation right fibula nonunion, iliac crest bone grafting with stem cell graft Urinary Catheter: No Vascular Central Line Catheter: No A/P Problem List: (1) Tibia/fibula fracture ICD Code: S82.209A Status: Acute (2) Shoulder pain, left ICD Code: M25.512 Status: Acute Assessment and Plan Right distal tibia/fibula nonunion Status post surgical intervention with removal of deep hardware, open reduction internal fixation right tibia nonunion, open reduction internal fixation of fibula nonunion, iliac crest bone grafting with stem cell graft. Strict nonweightbearing right lower extremity for 3 months postop, elevation, maintain splint Orthopedic following for management and care. Fracture boot placed on 06/17. Patient to wear boot at all times except for PT and showers. PT to work on stretching ankle. Pain control with Tylenol Ortho PA last evaluated patient on 07/02/16. I contacted Rakesh Gonzalez ortho PA yesterday who states patient will be evaluated again on 07/29/16, 3 months post- op. L shoulder pain: Patient complains of this periodically, primarily occurring at night. Shoulder is visible on previous chest x-ray with no fracture evident. Patient has adequate shoulder motion although experiences pain. -Continue Motrin, Tylenol, Bengay prn. DVT prevention Lovenox was discontinued as patient is ambulatory with crutches. Patient assured me he will ambulate multiple times per day. Discharge Planning Patient refused evaluation by [facility]. Patient must be cleared by orthopedics for discharge back to prior living situation in tent. Problem Qualifiers (1) Tibia/fibula fracture: Kelli Barton Jul 24, 2016 09:17
[2016-07-24] MEDS: ACETAMINOPHEN 325 MG TAB PO PRN (11:40)
[2016-07-24 20:00] VITALS: BP 133/73; PULSE 85; RESP 16; TEMP 97.2; O2SAT 96
[2016-07-25 08:00] VITALS: BP 130/81; PULSE 86; RESP 18; TEMP 98; O2SAT 96
[2016-07-25] MEDS: PANTOPRAZOLE SOD 40 MG DELAYED RELEASE TAB PO SCH (09:07)
[2016-07-25] MEDS: CHOLECALCIFEROL (VIT D3) 1000 UNIT TAB PO SCH (09:07)
[2016-07-25] MEDS: IBUPROFEN 600 MG TAB PO PRN (09:07)
[2016-07-25] MEDS: CALCIUM/VITAMIN D 250 MG/125 U TAB PO SCH ×3 (09:07→17:29)
--- NOTE | 2016-07-25 16:10 | HHI.PR ---
Subjective Remarks Patient evaluated this morning. No acute complaints. No change in clinical status. Objective Vitals Vital Signs Date Time Temp Pulse Resp B/P Pulse Ox O2 Delivery O2 Flow Rate FiO2 07/25/16 10:10 14 07/25/16 08:00 98.0 86 18 130/81 96 07/24/16 20:00 97.2 85 16 133/73 96 I/O 07/24/16 07/24/16 07/24/16 07/25/16 07/25/16 07/25/16 07:00 15:00 23:00 07:00 15:00 23:00 Intake Total 240 ml 750 ml 840 ml Balance 240 ml 750 ml 840 ml Intake Oral 240 ml 750 ml 840 ml # Voids 2 3 1 5 # Bowel Movements 0 1 Objective Remarks GENERAL: Well-nourished, well-developed patient in no apparent distress. CARDIOVASCULAR: Regular rate and rhythm. RESPIRATORY: CTAB. MUSCULOSKELETAL: Fracture boot RLE. 2+ right DP pulse. NEUROLOGICAL: Awake and alert. Normal speech. Procedures 04/30/16: Removal of deep hardware, open reduction internal fixation right tibia nonunion, open reduction internal fixation right fibula nonunion, iliac crest bone grafting with stem cell graft Urinary Catheter: No Vascular Central Line Catheter: No A/P Problem List: (1) Tibia/fibula fracture ICD Code: S82.209A Status: Acute (2) Shoulder pain, left ICD Code: M25.512 Status: Acute Assessment and Plan Right distal tibia/fibula nonunion Status post surgical intervention with removal of deep hardware, open reduction internal fixation right tibia nonunion, open reduction internal fixation of fibula nonunion, iliac crest bone grafting with stem cell graft. Strict nonweightbearing right lower extremity for 3 months postop, elevation, maintain splint Orthopedic following for management and care. Fracture boot placed on 06/17. Patient to wear boot at all times except for PT and showers. PT to work on stretching ankle. Pain control with Tylenol Ortho PA last evaluated patient on 07/02/16. I contacted Rakesh NAVA who states patient will be evaluated again on 07/29/16, 3 months post-op. L shoulder pain: Patient complains of this periodically, primarily occurring at night. Shoulder is visible on previous chest x-ray with no fracture evident. Patient has adequate shoulder motion although experiences pain. -Continue Motrin, Tylenol, Bengay prn. DVT prevention Lovenox was discontinued as patient is ambulatory with crutches. Patient assured me he will ambulate multiple times per day. Discharge Planning Patient refused evaluation by [facility]. Patient must be cleared by orthopedics for discharge back to prior living situation in tent. Problem Qualifiers (1) Tibia/fibula fracture: Kelli Barton Jul 25, 2016 16:10
[2016-07-25] MEDS: ACETAMINOPHEN 325 MG TAB PO PRN (19:06)
[2016-07-25 21:06] VITALS: BP 135/88; PULSE 73; RESP 16; TEMP 98.3; O2SAT 98
[2016-07-26] MEDS: IBUPROFEN 600 MG TAB PO PRN ×2 (05:48→17:02)
[2016-07-26 08:00] VITALS: BP 122/90; PULSE 74; RESP 20; TEMP 97.1; O2SAT 98
[2016-07-26] MEDS: PANTOPRAZOLE SOD 40 MG DELAYED RELEASE TAB PO SCH (08:04)
[2016-07-26] MEDS: CHOLECALCIFEROL (VIT D3) 1000 UNIT TAB PO SCH (08:04)
[2016-07-26] MEDS: CALCIUM/VITAMIN D 250 MG/125 U TAB PO SCH ×3 (08:04→17:01)
--- NOTE | 2016-07-26 09:13 | HHI.PR ---
Subjective Remarks No acute complaints. No change in clinical status. Objective Vitals Vital Signs Date Time Temp Pulse Resp B/P Pulse Ox O2 Delivery O2 Flow Rate FiO2 07/26/16 08:00 97.1 74 20 122/90 98 07/25/16 21:06 98.3 73 16 135/88 98 07/25/16 20:16 18 07/25/16 10:10 14 I/O 07/25/16 07/25/16 07/25/16 07/26/16 07/26/16 07/26/16 07:00 15:00 23:00 07:00 15:00 23:00 Intake Total 840 ml Balance 840 ml Intake Oral 840 ml # Voids 5 2 2 # Bowel Movements 1 Objective Remarks GENERAL: Well-nourished, well-developed patient in no apparent distress. CARDIOVASCULAR: Regular rate and rhythm. RESPIRATORY: CTAB. MUSCULOSKELETAL: Fracture boot RLE. 2+ right DP pulse. NEUROLOGICAL: Awake and alert. Normal speech. Procedures 04/30/16: Removal of deep hardware, open reduction internal fixation right tibia nonunion, open reduction internal fixation right fibula nonunion, iliac crest bone grafting with stem cell graft Urinary Catheter: No Vascular Central Line Catheter: No A/P Problem List: (1) Tibia/fibula fracture ICD Code: S82.209A Status: Acute (2) Shoulder pain, left ICD Code: M25.512 Status: Acute Assessment and Plan Right distal tibia/fibula nonunion Status post surgical intervention with removal of deep hardware, open reduction internal fixation right tibia nonunion, open reduction internal fixation of fibula nonunion, iliac crest bone grafting with stem cell graft. Strict nonweightbearing right lower extremity for 3 months postop, elevation, maintain splint Orthopedic following for management and care. Fracture boot placed on 06/17. Patient to wear boot at all times except for PT and showers. PT to work on stretching ankle. Pain control with Tylenol Ortho PA last evaluated patient on 07/02/16. I contacted Rakesh NAVA who states patient will be evaluated again on 07/29/16, 3 months post-op. L shoulder pain: Patient complains of this periodically, primarily occurring at night. Shoulder is visible on previous chest x-ray with no fracture evident. Patient has adequate shoulder motion although experiences pain. -Continue Motrin, Tylenol, Bengay prn. DVT prevention Lovenox was discontinued as patient is ambulatory with crutches. Patient assured me he will ambulate multiple times per day. Discharge Planning Patient refused evaluation by [facility]. Patient must be cleared by orthopedics for discharge back to prior living situation in tent. Problem Qualifiers (1) Tibia/fibula fracture: Kelli Barton Jul 26, 2016 09:13
[2016-07-26 20:46] VITALS: BP 133/84; PULSE 75; RESP 18; TEMP 98.3; O2SAT 98
[2016-07-27] MEDS: IBUPROFEN 600 MG TAB PO PRN (05:22)
--- NOTE | 2016-07-27 08:52 | HHI.PR ---
Subjective Remarks No acute complaints. No change in clinical status. Objective Vitals Vital Signs Date Time Temp Pulse Resp B/P Pulse Ox O2 Delivery O2 Flow Rate FiO2 07/26/16 20:46 98.3 75 18 133/84 98 I/O 07/26/16 07/26/16 07/26/16 07/27/16 07/27/16 07/27/16 07:00 15:00 23:00 07:00 15:00 23:00 Intake Total 930 ml Balance 930 ml Intake Oral 930 ml # Voids 2 3 3 2 # Bowel Movements 1 Objective Remarks GENERAL: Well-nourished, well-developed patient in no apparent distress. CARDIOVASCULAR: Regular rate and rhythm. RESPIRATORY: CTAB. MUSCULOSKELETAL: Fracture boot RLE. Capillary refill normal right toes. NEUROLOGICAL: Awake and alert. Normal speech. Procedures 04/30/16: Removal of deep hardware, open reduction internal fixation right tibia nonunion, open reduction internal fixation right fibula nonunion, iliac crest bone grafting with stem cell graft Urinary Catheter: No Vascular Central Line Catheter: No A/P Problem List: (1) Tibia/fibula fracture ICD Code: S82.209A Status: Acute (2) Shoulder pain, left ICD Code: M25.512 Status: Acute Assessment and Plan Right distal tibia/fibula nonunion Status post surgical intervention with removal of deep hardware, open reduction internal fixation right tibia nonunion, open reduction internal fixation of fibula nonunion, iliac crest bone grafting with stem cell graft. Strict nonweightbearing right lower extremity for 3 months postop, elevation, maintain splint Orthopedic following for management and care. Fracture boot placed on 06/17. Patient to wear boot at all times except for PT and showers. PT to work on stretching ankle. Pain control with Tylenol Ortho PA last evaluated patient on 07/02/16. I contacted Rakesh Gonzalez ortho PA who states patient will be evaluated again on 07/29/16, 3 months post-op. L shoulder pain: Patient complains of this periodically, primarily occurring at night. Shoulder is visible on previous chest x-ray with no fracture evident. Patient has adequate shoulder motion although experiences pain. -Continue Motrin, Tylenol, Bengay prn. DVT prevention Lovenox was discontinued as patient is ambulatory with crutches. Patient assured me he will ambulate multiple times per day. Discharge Planning Patient refused evaluation by [facility]. Patient must be cleared by orthopedics for discharge back to prior living situation in tent. Problem Qualifiers (1) Tibia/fibula fracture: Kelli Barton Jul 27, 2016 08:52
[2016-07-27 09:26] VITALS: BP 120/70; PULSE 73; RESP 14; TEMP 98.6; O2SAT 98
[2016-07-27] MEDS: PANTOPRAZOLE SOD 40 MG DELAYED RELEASE TAB PO SCH (09:38)
[2016-07-27] MEDS: CHOLECALCIFEROL (VIT D3) 1000 UNIT TAB PO SCH (09:38)
[2016-07-27] MEDS: CALCIUM/VITAMIN D 250 MG/125 U TAB PO SCH ×3 (09:38→17:03)
[2016-07-27 20:00] VITALS: BP 136/86; PULSE 63; RESP 16; TEMP 98; O2SAT 96
[2016-07-28] MEDS: IBUPROFEN 600 MG TAB PO PRN ×2 (06:20→20:55)
[2016-07-28 08:00] VITALS: BP 123/84; PULSE 65; RESP 16; TEMP 97; O2SAT 98
[2016-07-28] MEDS: CHOLECALCIFEROL (VIT D3) 1000 UNIT TAB PO SCH (08:33)
[2016-07-28] MEDS: PANTOPRAZOLE SOD 40 MG DELAYED RELEASE TAB PO SCH (08:33)
[2016-07-28] MEDS: CALCIUM/VITAMIN D 250 MG/125 U TAB PO SCH ×3 (08:33→17:36)
[2016-07-28] MEDS: ACETAMINOPHEN 325 MG TAB PO PRN (11:45)
--- NOTE | 2016-07-28 14:56 | HHI.PR ---
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 Patient denies any new medical complaints at this time. No change in patient's current clinical status. Objective Vitals Vital Signs Date Time Temp Pulse Resp B/P Pulse Ox O2 Delivery O2 Flow Rate FiO2 07/28/16 12:49 14 07/28/16 08:00 97.0 65 16 123/84 98 07/28/16 07:20 14 07/27/16 20:00 98.0 63 16 136/86 96 I/O 07/27/16 07/27/16 07/27/16 07/28/16 07/28/16 07/28/16 07:00 15:00 23:00 07:00 15:00 23:00 Intake Total 1680 ml 240 ml 840 ml Balance 1680 ml 240 ml 840 ml Intake Oral 1680 ml 240 ml 840 ml # Voids 2 6 1 3 # Bowel Movements 1 0 1 Objective Remarks GENERAL: Well-nourished, well-developed patient in no apparent distress. A& Ox3. CARDIOVASCULAR: Regular rate and rhythm. RESPIRATORY: CTAB. MUSCULOSKELETAL: Fracture boot RLE. Capillary refill normal right toes. NEUROLOGICAL: Awake and alert. Normal speech. Procedures 04/30/16: Removal of deep hardware, open reduction internal fixation right tibia nonunion, open reduction internal fixation right fibula nonunion, iliac crest bone grafting with stem cell graft Urinary Catheter: No Vascular Central Line Catheter: No Procedures 04/30/16: Removal of deep hardware, open reduction internal fixation right tibia nonunion, open reduction internal fixation right fibula nonunion, iliac crest bone grafting with stem cell graft Medications and IVs Current Medications Medications (Trade) Dose Ordered Sig/Frances Route Start Time Stop Time Status Last Admin (Oscal-D 250-125) 250 mg TID PO 04/30/16 13:00 07/28/16 11:34 (Benadryl) 25 mg Q6H PRN PO 04/30/16 10:15 06/12/16 21:26 (Vitamin D3) 1,000 units DAILY PO 05/01/16 09:00 07/28/16 08:33 (Drisdol) 50,000 units Q7D PO 04/30/16 12:00 07/23/16 12:20 (Zofran Odt) 4 mg Q6H PRN PO 05/06/16 08:00 (Tylenol) 650 mg Q4H PRN PO 05/06/16 14:45 07/28/16 11:45 (Kylie-Colace) 1 tab BID PRN PO 05/06/16 14:45 05/22/16 20:32 (Milk Of Magnesia Liq) 30 ml DAILY PRN PO 05/06/16 14:45 05/27/16 20:22 (Mag-Al Plus Susp Liq) 30 ml Q6H PRN PO 05/06/16 14:45 07/14/16 11:13 (Tums Chew) 1,000 mg TID PRN CHEW 05/06/16 14:45 07/13/16 11:30 (Restoril) 15 mg HS PRN PO 05/06/16 14:45 07/07/16 22:18 (Motrin) 600 mg Q8H PRN PO 07/01/16 08:45 07/28/16 06:20 (Herman Mendez Oint) 1 applic QID PRN TOP 07/10/16 10:00 07/10/16 11:44 (Protonix) 40 mg DAILY PO 07/14/16 15:00 07/28/16 08:33 A/P Problem List: (1) Tibia/fibula fracture ICD Code: S82.209A Status: Acute (2) Shoulder pain, left ICD Code: M25.512 Status: Acute Assessment and Plan Right distal tibia/fibula nonunion Status post surgical intervention with removal of deep hardware, open reduction internal fixation right tibia nonunion, open reduction internal fixation of fibula nonunion, iliac crest bone grafting with stem cell graft. Strict nonweightbearing right lower extremity for 3 months postop, elevation, maintain splint Orthopedic following for management and care. Fracture boot placed on 06/17. Patient to wear boot at all times except for PT and showers. PT to work on stretching ankle. Pain control with Tylenol Ortho PA last evaluated patient on 07/02/16. I contacted Rakesh NAVA who states patient will be evaluated again on 07/29/16, 3 months post-op. Continue participation with physical therapy, maintain strict adherence to nonweightbearing status RLE. L shoulder pain: Patient complains of this periodically, primarily occurring at night. Shoulder is visible on previous chest x-ray with no fracture evident. Patient has adequate shoulder motion although experiences pain. No complaints during today's examination. -Continue Motrin, Tylenol, Bengay prn. DVT prevention Lovenox was discontinued as patient is ambulatory with crutches. Patient assured me he will ambulate multiple times per day. Patient seen actively ambulating in hallway today Discharge Planning Patient refused evaluation by [facility]. Patient must be cleared by orthopedics for discharge back to prior living situation in tent. We'll reassess discharge planning following orthopedics reevaluation tomorrow. Problem Qualifiers (1) Tibia/fibula fracture: Radha Toledo Jul 28, 2016 14:56
[2016-07-28 20:00] VITALS: BP 145/95; PULSE 85; RESP 20; TEMP 97.2; O2SAT 97
[2016-07-29 08:10] VITALS: BP 128/78; PULSE 67; RESP 14; TEMP 96.5; O2SAT 98
[2016-07-29] MEDS: CHOLECALCIFEROL (VIT D3) 1000 UNIT TAB PO SCH (08:19)
[2016-07-29] MEDS: IBUPROFEN 600 MG TAB PO PRN ×2 (08:19→16:48)
[2016-07-29] MEDS: PANTOPRAZOLE SOD 40 MG DELAYED RELEASE TAB PO SCH (08:19)
[2016-07-29] MEDS: CALCIUM/VITAMIN D 250 MG/125 U TAB PO SCH ×3 (08:19→16:48)
--- NOTE | 2016-07-29 10:51 | RADHPO ---
EXAM DATE/TIME: 07/29/2016 10:39 [facility] COMPARISON: ANKLE RIGHT COMPLETE ([id number]), June 16, 2016, 15:34. INDICATIONS : Follow up right ankle fracture. MEDICAL HISTORY : None. SURGICAL HISTORY : ORIF right ankle ENCOUNTER: Subsequent ACUITY: 3 months PAIN SCORE: 0/10 LOCATION: Right ankle FINDINGS: Plate with screws is seen bridging the fractures of the tibia and fibula. There is aggressive diffus e osteopenia. Fracture is not yet solid. CONCLUSION: Anatomic alignment with aggressive diffuse osteopenia. Nader Quinn MD FACR on July 29, 2016 at 10:47 Board Certified Radiologist. This report was verified electronically.
--- NOTE | 2016-07-29 12:58 | HHI.PR ---
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 Patient seen and examined and common room. No acute medical complaints at this time. Patient is expecting to speak with orthopedic surgeon today Objective Vitals Vital Signs Date Time Temp Pulse Resp B/P Pulse Ox O2 Delivery O2 Flow Rate FiO2 07/29/16 09:32 14 07/29/16 08:10 96.5 67 14 128/78 98 07/28/16 20:00 97.2 85 20 145/95 97 I/O 07/28/16 07/28/16 07/28/16 07/29/16 07/29/16 07/29/16 07:00 15:00 23:00 07:00 15:00 23:00 Intake Total 240 ml 840 ml 480 ml 220 ml Output Total 0 ml Balance 240 ml 840 ml 480 ml 220 ml Intake Oral 240 ml 840 ml 480 ml 220 ml Stool Total 0 ml # Voids 1 3 2 1 # Bowel Movements 0 1 0 Objective Remarks GENERAL: Well-nourished, well-developed patient in no apparent distress. A& Ox3. CARDIOVASCULAR: Regular rate and rhythm. RESPIRATORY: CTAB. MUSCULOSKELETAL: Fracture boot RLE. Capillary refill normal right toes. NEUROLOGICAL: Awake and alert. Normal speech. Procedures 04/30/16: Removal of deep hardware, open reduction internal fixation right tibia nonunion, open reduction internal fixation right fibula nonunion, iliac crest bone grafting with stem cell graft Urinary Catheter: No Vascular Central Line Catheter: No Procedures 04/30/16: Removal of deep hardware, open reduction internal fixation right tibia nonunion, open reduction internal fixation right fibula nonunion, iliac crest bone grafting with stem cell graft Medications and IVs Current Medications Medications (Trade) Dose Ordered Sig/Frances Route Start Time Stop Time Status Last Admin (Oscal-D 250-125) 250 mg TID PO 04/30/16 13:00 07/29/16 11:32 (Benadryl) 25 mg Q6H PRN PO 04/30/16 10:15 06/12/16 21:26 (Vitamin D3) 1,000 units DAILY PO 05/01/16 09:00 07/29/16 08:19 (Drisdol) 50,000 units Q7D PO 04/30/16 12:00 07/23/16 12:20 (Zofran Odt) 4 mg Q6H PRN PO 05/06/16 08:00 (Tylenol) 650 mg Q4H PRN PO 05/06/16 14:45 07/28/16 11:45 (Kylie-Colace) 1 tab BID PRN PO 05/06/16 14:45 05/22/16 20:32 (Milk Of Magnesia Liq) 30 ml DAILY PRN PO 05/06/16 14:45 05/27/16 20:22 (Mag-Al Plus Susp Liq) 30 ml Q6H PRN PO 05/06/16 14:45 07/14/16 11:13 (Tums Chew) 1,000 mg TID PRN CHEW 05/06/16 14:45 07/13/16 11:30 (Restoril) 15 mg HS PRN PO 05/06/16 14:45 07/07/16 22:18 (Motrin) 600 mg Q8H PRN PO 07/01/16 08:45 07/29/16 08:19 (Herman Mendez Oint) 1 applic QID PRN TOP 07/10/16 10:00 07/10/16 11:44 (Protonix) 40 mg DAILY PO 07/14/16 15:00 07/29/16 08:19 A/P Problem List: (1) Tibia/fibula fracture ICD Code: S82.209A Status: Acute (2) Shoulder pain, left ICD Code: M25.512 Status: Acute Assessment and Plan Right distal tibia/fibula nonunion Status post surgical intervention with removal of deep hardware, open reduction internal fixation right tibia nonunion, open reduction internal fixation of fibula nonunion, iliac crest bone grafting with stem cell graft. Strict nonweightbearing right lower extremity for 3 months postop, elevation, maintain splint Orthopedic following for management and care. Fracture boot placed on 06/17. Patient to wear boot at all times except for PT and showers. PT to work on stretching ankle. Pain control with Tylenol Ortho PA last evaluated patient on 07/02/16. Spoke with Rakesh Gonzalez ortho PA today who states patient will be evaluated for possible discharge. X-rays ordered to assess status of nonunion. Continue participation with physical therapy, maintain strict adherence to nonweightbearing status RLE. L shoulder pain: Patient complains of this periodically, primarily occurring at night. Shoulder is visible on previous chest x-ray with no fracture evident. Patient has adequate shoulder motion although experiences pain. Again, no complaints during today's examination. -Continue Motrin, Tylenol, Bengay prn. DVT prevention Lovenox was discontinued as patient is ambulatory with crutches. Patient assured me he will ambulate multiple times per day. Patient seen actively ambulating in hallway today Discharge Planning Patient refused evaluation by [facility]. Patient must be cleared by orthopedics for discharge back to prior living situation in [facility]. We'll reassess discharge planning following orthopedics reevaluation and recommendations. Problem Qualifiers (1) Tibia/fibula fracture: Radha Toledo Jul 29, 2016 12:57
--- NOTE | 2016-07-29 17:31 | PD.ORT.PN ---
Subjective Subjective Remarks Pain controlled. No new complaints Objective Vitals Vital Signs Date Time Temp Pulse Resp B/P Pulse Ox O2 Delivery O2 Flow Rate FiO2 07/29/16 09:32 14 07/29/16 08:10 96.5 67 14 128/78 98 07/28/16 20:00 97.2 85 20 145/95 97 I/O 07/28/16 07/28/16 07/28/16 07/29/16 07/29/16 07/29/16 07:00 15:00 23:00 07:00 15:00 23:00 Intake Total 240 ml 840 ml 480 ml 220 ml Output Total 0 ml Balance 240 ml 840 ml 480 ml 220 ml Intake Oral 240 ml 840 ml 480 ml 220 ml Stool Total 0 ml # Voids 1 3 2 1 2 # Bowel Movements 0 1 0 Imaging Last 72 hours Impressions Ankle X-Ray 07/29/16 0000 Signed Impressions: Service Date/Time: Friday, July 29, 2016 10:39 - CONCLUSION: Anatomic alignment with aggressive diffuse osteopenia. Nader Quinn MD FACR Last 72 hours Impressions Ankle X-Ray 04/30/16 0000 Signed Impressions: Service Date/Time: April 09:54 - CONCLUSION: Distal fibular and tibial hardware appears to be in good position status post revision. Chente Spain MD Objective Remarks RLE: fracture boot in place. Incision completely healed. Ankle range of motion 10 of dorsiflexion and 35 of plantarflexion. He has intact sensation distally in all toes. Good capillary refills Assessment & Plan Assessment and Plan 1) Revision right tibial pilon fracture with removal of hardware and iliac crest bone graft and open reduction internal fixation 04/30/16 He is to be toe-touch weightbearing on the right lower extremity fracture boot at all times except for physical therapy and showers PT to work on stretching of ankle Dr. Harris feels that he may be discharged and follow-up in 2 weeks for x-rays at [facility]. Luis understands that he is to continue to protect this ankle, the fracture is not completely healed hopefully we will progress his weightbearing status in 2 weeks MAXIMO SOTELO PA-C Jul 29, 2016 17:31
[2016-07-29 20:00] VITALS: BP 139/90; PULSE 76; RESP 20; TEMP 97.1; O2SAT 97
[2016-07-30] MEDS: IBUPROFEN 600 MG TAB PO PRN (04:22)
[2016-07-30 08:20] VITALS: BP 122/86; PULSE 77; RESP 18; TEMP 97; O2SAT 97
[2016-07-30] MEDS: PANTOPRAZOLE SOD 40 MG DELAYED RELEASE TAB PO SCH (09:15)
[2016-07-30] MEDS: CALCIUM/VITAMIN D 250 MG/125 U TAB PO SCH (09:15)
[2016-07-30] MEDS: CHOLECALCIFEROL (VIT D3) 1000 UNIT TAB PO SCH (09:15)
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
== END 2016-07-30 11:12 | disposition home or self-care (01) | DRG 494 ==
LOC: HSDI 04-30 05:51 → N06B 04-30 12:38 → PH5A 05-05 10:45
PROVIDERS: ADMIT Orthopaedic Surgery Orthopaedic Trauma; ATTEND Family Medicine
PROC: 0QSJ04Z Reposition Right Fibula with Internal Fixation Device, Open Approach (ICD-10-PCS; 2016-04-30)
PROC: 0QPJ04Z Removal of Internal Fixation Device from Right Fibula, Open Approach (ICD-10-PCS; 2016-04-30)
PROC: 0QPG04Z Removal of Internal Fixation Device from Right Tibia, Open Approach (ICD-10-PCS; 2016-04-30)
PROC: 0QUJ07Z Supplement Right Fibula with Autologous Tissue Substitute, Open Approach (ICD-10-PCS; 2016-04-30)
PROC: 0QUG07Z Supplement Right Tibia with Autologous Tissue Substitute, Open Approach (ICD-10-PCS; 2016-04-30)
PROC: 0QB20ZZ Excision of Right Pelvic Bone, Open Approach (ICD-10-PCS; 2016-04-30)
PROC: 0QSG04Z Reposition Right Tibia with Internal Fixation Device, Open Approach (ICD-10-PCS; principal; 2016-04-30 07:56)
DX: S82.871 Displaced pilon fracture of right tibia (principal); S82.83 Other fracture of upper and lower end of fibula; M25.511 Pain in right shoulder; M25.512 Pain in left shoulder; F17.210 Nicotine dependence, cigarettes, uncomplicated; R12 Heartburn; Z75.1 Person awaiting admission to adequate facility elsewhere; Z59.0 Homelessness
CPT/HCPCS: 73600; 73610; 76000; 85014; 85018; 85025; 85652; 86140; 87015; 87070; 87102; 87116; 87176; 87205; 87206; 94150; C1713; J0690; J1100; J1170; J1580; J1650; J1885; J2250; J2270; J2405; J3010; J3370; J7050; J7120; L2114